=== PATIENT | male | born 1965 | race Caucasian/White ===

== ENCOUNTER 2020-06-12 10:00 | Outpatient (REF) | payer OTHER, SELFPAY ==
[2020-06-12 11:17] LABS: MANUAL DIFF FLAG NO
[2020-06-12 11:21] LABS: Basophils Absolute Auto 0.1 X10*3/uL (0.0-0.2); Eosinophils Absolute Auto 0.2 X10*3/uL (0.0-0.4); Eosinophils Percent Auto 4.6 % (0-4); Hematocrit 44.5 % (42-52); Hemoglobin 14.3 g/dl (14.0-18.0); Imm Gran Abs Auto 0.01 X10*3/uL (0.00-0.03); Imm Gran Pct Auto 0.2 % (0.0-0.4); Lymphocytes Absolute Auto 1.8 X10*3/uL (1.2-4.9); Lymphocytes Percent Auto 34.9 % (20-40); Mean Corpuscular HGB Conc 32.1 g/dl (31.0-36.0); Mean Corpuscular Volume 90.3 fL (80-98); Mean Platelet Volume 10.9 fL (9.4-12.4); Monocytes Absolute Auto 0.7 X10*3/uL (0.1-1.2); Monocytes Percent Auto 13.2 % (2-11); Neutrophils Absolute Auto 2.3 X10*3/uL (2.0-8.3); Neutrophils Percent Auto 46.1 % (45-73); Platelet Count 283 X10*3/uL (160-400); Red Blood Count 4.93 X10*6/uL (4.60-5.80); Red Cell Distribution Width 12.5 % (11.0-16.0)
[2020-06-12 11:41] LABS: Alanine Aminotransferase 13 U/L (0-40); Albumin Level 4.5 g/dL (3.5-5.0); Alkaline Phosphatase 77 U/L (39-117); Anion Gap 13 (12-20); Aspartate Amino Transferase 16 U/L (5-37); Bilirubin Total 0.6 mg/dL (0.0-1.0); Blood Urea Nitrogen 17 mg/dL (9-16); Calcium 9.4 mg/dL (8.4-10.2); Carbon Dioxide 29 mmol/L (22-29); Chloride 102 mmol/L (96-108); Cholesterol 218 mg/dL; Estimated Glomerular Filt Rate > 60; Glucose Fasting 89 mg/dL (60-99); HDL Cholesterol 36 mg/dL; LDL Cholesterol Calculated 165 mg/dl; Sodium 139 mmol/L (135-145); Total Protein 7.4 g/dL (6.5-8.0); Triglycerides 89 mg/dL
[2020-06-12 12:01] LABS: Prostate Specific Antigen 1.06 ng/mL (<0.05-4.0)
== END 2020-06-12 10:01 | disposition home or self-care (01) ==
LOC: HO.LAB 10:00
PROVIDERS: PCP Internal Medicine Medical Oncology; Visit Provider Internal Medicine Medical Oncology
DX: K21.9 Gastro-esophageal reflux disease without esophagitis (principal); N40.0 Benign prostatic hyperplasia without lower urinary tract symptoms; E78.5 Hyperlipidemia, unspecified; Z12.5 Encounter for screening for malignant neoplasm of prostate
CPT/HCPCS: 36415; 80053; 80061; 84153; 85025

== ENCOUNTER 2022-05-26 10:50 | Outpatient (REF) | payer OTHER, SELFPAY ==
[2022-05-26 11:07] LABS: MANUAL DIFF FLAG NO
[2022-05-26 11:55] LABS: Basophils Absolute Auto 0.1 X10*3/uL (0.0-0.2); Basophils Percent Auto 1.3 % (0-2); Eosinophils Absolute Auto 0.2 X10*3/uL (0.0-0.4); Hematocrit 44.8 % (42.0-52.0); Hemoglobin 14.7 g/dl (14.0-18.0); Imm Gran Abs Auto 0.02 X10*3/uL (0.00-0.03); Imm Gran Pct Auto 0.4 % (0.0-0.4); Lymphocytes Absolute Auto 1.7 X10*3/uL (1.2-4.9); Lymphocytes Percent Auto 31.8 % (20-40); Mean Corpuscular HGB Conc 32.8 g/dl (31.0-36.0); Mean Corpuscular Volume 88.4 fL (80.0-98.0); Mean Platelet Volume 10.6 fL (9.4-12.4); Monocytes Absolute Auto 0.6 X10*3/uL (0.1-1.2); Monocytes Percent Auto 11.5 % (2-11); Neutrophils Absolute Auto 2.7 x10*3/uL (2.0-8.3); Platelet Count 278 X10*3/uL (160-400); Red Blood Count 5.07 X10*6/uL (4.60-5.80); Red Cell Distribution Width 12.6 % (11.0-16.0); White Blood Count 5.2 X10*3/uL (4.8-10.8)
[2022-05-26 13:58] LABS: Alanine Aminotransferase 32 U/L (0-40); Albumin Level 4.3 g/dL (3.5-5.0); Alkaline Phosphatase 71 U/L (39-117); Anion Gap 13 (12-20); Aspartate Amino Transferase 20 U/L (5-37); Bilirubin Total 0.7 mg/dL (0.0-1.0); Blood Urea Nitrogen 14 mg/dL (9-16); Calcium 9.7 mg/dL (8.4-10.2); Carbon Dioxide 29 mmol/L (22-29); Chloride 104 mmol/L (96-108); Cholesterol 244 mg/dL; Estimated Glomerular Filt Rate > 60; Glucose Random 93 mg/dL (60-115); HDL Cholesterol 45 mg/dL; LDL Cholesterol Calculated 182 mg/dl; Potassium 4.9 mmol/L (3.3-5.1); Sodium 141 mmol/L (135-145); Total Protein 6.9 g/dL (6.5-8.0); Triglycerides 89 mg/dL
[2022-05-26 14:16] LABS: Prostate Specific Antigen 0.95 ng/mL (<0.05-4.0)
== END 2022-05-26 10:51 | disposition home or self-care (01) ==
LOC: HO.LAB 10:50
PROVIDERS: PCP Internal Medicine Medical Oncology; Visit Provider Internal Medicine Medical Oncology
DX: Z12.5 Encounter for screening for malignant neoplasm of prostate (principal); N40.0 Benign prostatic hyperplasia without lower urinary tract symptoms; K21.9 Gastro-esophageal reflux disease without esophagitis; E66.3 Overweight
CPT/HCPCS: 36415; 80053; 80061; 84153; 85025

== ENCOUNTER 2022-06-20 14:35 | Outpatient (REF) | payer OTHER, SELFPAY ==
--- NOTE | ~2022-06-20 | XR_ITS ---
EXAMINATION: XR AP BILATERAL KNEE XR RIGHT KNEE CLINICAL INDICATIONS: Pain, right knee. TECHNIQUE: AP bilateral knee 1 view standing. Right knee 2 views. COMPARISON: None available. FINDINGS: AP BILATERAL KNEE STANDING: There is mild loss of medial compartment joint space both knees. No bony erosive changes, loose bodies or fracture seen. RIGHT KNEE: The patellofemoral compartment joint space is normal. No abnormal joint effusion, loose bodies or bony erosive changes. No soft tissue calcification. XR/XR knee RT 2V IMPRESSION: 1. Mild loss of medial compartment joint space both knees. 2. The lateral and sunrise views right knee is unremarkable.
--- NOTE | ~2022-06-20 | XR_ITS ---
EXAMINATION: XR AP BILATERAL KNEE XR RIGHT KNEE CLINICAL INDICATIONS: Pain, right knee. TECHNIQUE: AP bilateral knee 1 view standing. Right knee 2 views. COMPARISON: None available. FINDINGS: AP BILATERAL KNEE STANDING: There is mild loss of medial compartment joint space both knees. No bony erosive changes, loose bodies or fracture seen. RIGHT KNEE: The patellofemoral compartment joint space is normal. No abnormal joint effusion, loose bodies or bony erosive changes. No soft tissue calcification. XR/XR knee standing BI IMPRESSION: 1. Mild loss of medial compartment joint space both knees. 2. The lateral and sunrise views right knee is unremarkable.
== END 2022-06-20 14:36 | disposition home or self-care (01) ==
LOC: HO.HOSX 14:35
PROVIDERS: PCP Internal Medicine Medical Oncology; Visit Provider Physician Assistant
DX: S83.001A Unspecified subluxation of right patella, initial encounter (principal); X58.XXXA Exposure to other specified factors, initial encounter; Y93.9 Activity, unspecified; Y92.9 Unspecified place or not applicable; Y99.9 Unspecified external cause status
CPT/HCPCS: 73560; 73565; 99202

== ENCOUNTER 2022-08-22 14:44 | Outpatient (AMB) | payer OTHER, SELFPAY ==
--- NOTE | 2022-08-22 14:50 | A.OFFVIS_ITS ---
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 He is referred by Gino Sanders MD. PMX History of substance abuse -HEROIN CURRENT USER Overweight History of diverticulitis GERD Fracture left ulna BPH Bilateral inguinal hernias Depression * SURGICAL HISTORY Left hand surgery - nerve repair s/p trauma Colonoscopy/EGD Left ulnar repair with bone graft Bilateral inguinal hernia apathy x2 * ALLERGIES: NKDA * [employer] LABS: Laboratory Tests 05/26/22 05/26/22 11:06 11:06 WBC 5.2 Hgb 14.7 Hct 44.8 Plt Count 278 Estimated GFR > 60 Total Bilirubin 0.7 AST 20 ALT 32 Alkaline Phosphata se 71 TODAY'S VISIT He had a prior scope in [address] [place] [address] because of TICS. His son had Crohns disease. No bowel or upper GI problems. There are no prior problems with anesthesia or sedation. He denies any cardiac or respiratory problems. No ID problems. No FHX crc or polyps. [facility] Medical History Bilateral inguinal hernia Fracture of left ulna History of diverticulitis Surgical History H/O bilateral inguinal hernia repair History of surgery on arm Social History Alcohol intake: never Patient Tobacco Use Status: Former Tobacco user Current occupational status: unemployed Review of Systems Const Denies fatigue, Denies fever(s), Denies night sweats, Denies poor appetite and Denies weight loss ENT Reports Normal hearing present, Denies dental pain, Denies dysphagia, Denies hearing loss, Denies mouth pain, Denies odynophagia, Denies throat swelling, Denies tongue swelling and Reports other (Dentition adequate) Card Reports no additional complaints Resp Reports no additional complaints GI Denies abdominal pain, Denies melena, Denies bloating, Denies hematochezia, Denies constipation, Denies GI cramping, Denies dysphagia, Denies excessive flatus, Denies early satiety, Reports heartburn, Denies diarrhea, Denies nausea, Denies odynophagia, Denies vomiting and Denies hematemesis Skin/Breast Denies pruritus, Denies lesions, Denies rash and Denies jaundice Neuro Reports Normal hearing present and Denies Abnormal speech present Endo Denies fatigue Aller/Immun Denies throat swelling and Denies tongue swelling Physical Exam Vital Signs: Last Vital Signs Pulse 68 08/22/22 14:58 BP 123/76 08/22/22 14:58 BMI result Body Mass Index 27.2 Const General: cooperative, no acute distress, well developed and well groomed Nutritional Appearance: average body habitus and well nourished Orientation/consciousness: oriented to person, oriented to place and oriented to time Limitations: No language barrier HEENT Head: Yes normocephalic and Yes atraumatic Eyes General: appearance normal, both eyes and all related structures Pupils: Equal, round and reactive pupils present Neck Neck: Yes normal visual inspection and Yes no lymphadenopathy Thyroid: Thyroid normal Resp Effort & Inspection: normal respiratory effort and able to speak in complete sentences Auscultation: clear to auscultation bilaterally Cardio Rate: regular rate Rhythm: regular rhythm Heart sounds: Normal, physiologic split S2 sound present Peripheral pulses: radial pulses present and posterior tibial pulses present GI Inspection: No distended and No Abdominal panniculus present Palpation (GI): Soft to palpation, nontender, no guarding, not rigid and No hepatosplenomegaly present Percussion: Yes normal to percussion Auscultation: normal bowel sounds Rectal Exam - Male: Yes deferred Skin Other: multiple tattoos neck General skin exam: no rashes or lesions noted, turgor normal, skin not dry, no jaundice, No spider nevi and no striae Rashes: no rashes Nails: normal Neuro General: oriented to person, oriented to place and oriented to time Cranial nerves: Yes Equal, round and reactive pupils present and Yes Normal hearing present Speech: No Abnormal speech present Extrem General: Yes normal to inspection, No clubbing, No cyanosis and No edema Psych Appearance: grossly normal and well kempt Mental Status: mental status grossly normal Speech and movement: Normal speech and movement present Affect: normal affect Attitude: cooperative Thought process: Normal thought process present and not confabulating Thought content: Normal thought content present Insight: Limited insight present (Psych) Judgement: Limited judgement present (Psych) Assessment & Plan Assessment & Plan (1) Pre-op examination: Code(s): Z01.818 - Encounter for other preprocedural examination Plan: He had a prior scope in [address] [place] [address] because of TICS. His son had Crohns disease. No bowel or upper GI problems. There are no prior problems with anesthesia or sedation. He denies any cardiac or respiratory problems. No ID problems. No FHX crc or polyps. (2) Heroin abuse: Code(s): F11.10 - Opioid abuse, uncomplicated Orders: Orders Colonoscopy - GI Use Only 08/22/22 Medications: New peg 3350-electrolytes 236-22.74-6.74 -5.86 gram (Golytely) until fecal effluent is clear; do not exceed a total volume of 2,000 mL 240 mL PO Q10M 4,000 mL 0RF 1 day Z12.11 - Encounter for screening for malignant neoplasm of colon Coding Level of Care Code New Pt Level 3 (35978) Diagnoses Pre-op examination Z01.818 Heroin abuse F11.10
[2022-08-22 14:58] VITALS: BP 123/76; PULSE 68; BMI 27.2
== END 2022-08-22 16:14 | disposition home or self-care (01) ==
PROVIDERS: PCP Internal Medicine Medical Oncology; Visit Provider Nurse Practitioner
DX: Z01.818 Encounter for other preprocedural examination (principal); Z12.11 Encounter for screening for malignant neoplasm of colon; F11.10 Opioid abuse, uncomplicated
CPT/HCPCS: 99203

== ENCOUNTER → 2022-08-22 14:44 | Outpatient (BNVA) | payer OTHER, SELFPAY | PROVIDERS: PCP Internal Medicine Medical Oncology; Visit Provider Nurse Practitioner | DX: Z01.818 Encounter for other preprocedural examination (principal); F11.10 Opioid abuse, uncomplicated | CPT/HCPCS: 99202 ==

== ENCOUNTER 2022-09-13 15:42 | Emergency (ER) | payer OTHER, SELFPAY ==
--- NOTE | ~2022-09-13 | CT_ITS ---
EXAMINATION: CT ABDOMEN AND PELVIS WITH CONTRAST CLINICAL INFORMATION: Left lower quadrant pain. COMPARISON: None available. TECHNIQUE: Multidetector volumetric images were obtained from the superior aspect of the liver through the pubic symphysis following administration 85 mL of Omnipaque 350 intravenous contrast. Sagittal and coronal reformatted images were obtained on the technologist's workstation. Oral contrast: No This CT examination was performed using dose optimization techniques as appropriate, variously including the following: *Automated exposure control *Adjustment of mA and/or kV according to patient size (this includes techniques or standardized protocols for targeted exams where dose is matched to indication/reason for exam; i.e. extremities or head) *Use of iterative reconstruction technique DLP: 670 mGy-cm FINDINGS: LUNG BASES: A few sub-3 mm solid pulmonary nodules are seen, for instance in the left lower lobe image 84 and right lower lobe image 30 series 4. No focal consolidation or pleural effusion. Partially imaged coronary artery calcifications. LIVER, GALLBLADDER, AND BILIARY TREE: The liver is normal in size, shape and attenuation. Too small to characterize hypodensities, for instance in the right hepatic lobe axial image 21 series 3, are statistically imaging favored to represent a simple cysts. No calcified cholelithiasis. No pericholecystic fat stranding/free fluid to suspected acute cholecystitis. No biliary ductal dilatation. PANCREAS: Mild fatty haziness at the root of the small bowel mesentery. Otherwise, no significant peripancreatic fat stranding/free fluid. No main ductal dilatation. SPLEEN: Unremarkable. ADRENAL GLANDS: Unremarkable. KIDNEYS AND URETERS: Nonobstructive punctate left-sided renal calculi. Symmetric nephrograms. No hydronephrosis. No significant perinephric fat stranding. Multiple simple fluid attenuating left-sided parapelvic and cortical cysts with a few additional too small to characterize left-sided cortical hypodensities that statistically are also likely to represent simple cysts and for which no imaging follow-up is recommended. Homogeneously hyperintense attenuating exophytic observation along the posterior left kidney measuring 1.7 cm, 60 Hounsfield units, favoring to represent a proteinaceous/hemorrhagic cyst sagittal image 30 series 7, for which no imaging follow-up is recommended. BLADDER: Diffuse urinary bladder wall thickening. No calcified intraluminal calculi. No significant perivesical fat stranding. GASTROINTESTINAL TRACT: The stomach and the small bowel are nondilated. The appendix is slightly prominent measuring up to 0.9 cm in diameter with minimal periappendiceal fat stranding, for instance axial images 61 and 59 series 3. Moderate volume of stool content throughout the colon and rectum. No significant pericolonic fat stranding/free fluid. No evidence of bowel obstruction. ABDOMINAL WALL: Postsurgical changes from prior right inguinal hernia repair with a small recurrent fat-containing hernia. Additional small fat-containing umbilical and left-sided inguinal hernias. LYMPH NODES: Scattered prominent but not pathologically enlarged mesenteric lymph nodes. Nonspecific periportal lymphadenopathy. VASCULAR: Normal caliber abdominal aorta. PELVIC VISCERA: Enlarged prostate with coarse calcifications. OSSEOUS STRUCTURES: No acute or aggressive appearing osseous findings. Degenerative changes of the spine. Subchondral degenerative cysts in the right acetabulum. CT/CT abdomen pelvis w IV con IMPRESSION: 1. The appendix is slightly prominent with minimal periappendiceal fat stranding. Correlate clinically for acute appendicitis. 2. Moderate volume of stool content throughout the colon and rectum suggesting constipation. 3. Mild fatty haziness at the root of the small bowel mesentery with prominent but not pathologically enlarged mesenteric lymph nodes. These findings are nonspecific and could be associated with mesenteric panniculitis, gastroenteritis or less likely pancreatitis. Correlation with lipase/amylase levels as clinically indicated. 4. Diffuse urinary bladder wall thickening, correlate clinically for cystitis. 5. Nonspecific periportal lymphadenopathy, attention on follow-up in future examinations recommended. 6. Nonobstructive left-sided renal calculi. 7. Sub-3 mm solid pulmonary nodules in the lung bases. Assuming patient has no history of malignancy, recommend follow-up per Fleischner Society recommendations. According to the UPDATED 2017 Fleischner Society recommendations, the advised followup imaging for solid nodules < 6 mm is: LOW RISK PATIENT: No routine follow up. HIGH RISK PATIENT: Optional CT at 12 months. Fleischner guidelines were followed.
[2022-09-13 16:48] VITALS: BP 143/101; PULSE 69; RESP 18; TEMP 36.2; O2SAT 97; BMI 28.4
--- NOTE | 2022-09-13 16:48 | ED.GENADULT ---
HPI - General Adult General Chief complaint: Abdominal Pain Stated complaint: diverticulitis Time Seen by Provider: 09/13/22 21:00 Source: patient Mode of arrival: ambulatory Limitations: no limitations History of Present Illness HPI narrative: Patient comes to the emergency room complaining of left lower quadrant pain. Patient states that for about a week he has been treated with Levaquin and Flagyl by his PCP for diverticulitis which patient has had in the past. Patient states that he is not feeling any better. Patient denies diarrhea or vomiting. Related Data Home Medications Medication Instructions Recorded Confirmed clonidine HCl 0.2 mg tablet 0.2 mg PO BID 08/22/22 omeprazole 20 mg capsule,delayed 20 mg PO DAILY 08/22/22 release Previous Rx's Medication Instructions Recorded peg 3350-electrolytes 236 240 ml PO Q10M 1 day #4,000 mL 08/22/22 gram-22.74 gram-6.74 gram-5.86 gram solution (Golytely) levofloxacin 500 mg tablet 500 mg PO DAILY #7 tabs 09/13/22 metronidazole 500 mg tablet 500 mg PO BID #14 tabs 09/13/22 polyethylene glycol 3350 17 17 g PO DAILY PRN laxative effect 09/13/22 gram/dose oral powder (Miralax) #119 grams tramadol 50 mg tablet 50 mg PO BID PRN pain #7 tabs 09/13/22 Allergies Allergy/AdvReac Type Severity Reaction Status Date / Time No Known Allergies Allergy Verified 08/22/22 14:59 Review of Systems Review of Systems: Constitutional : No Weight loss, No Fever, No Chills, No Night Sweats, No Fatigue, No Malaise ENT/Mouth : No Hearing loss, No Ear Pain, No Nasal Congestion, No Sinus Pain, No Hoarseness, No sore throat, No Rhinorrhea, No Swallowing Difficulty Eyes: No Eye Pain, No Swelling, No Redness, No Foreign Body, No Discharge, No Vision Changes Cardiovascular : No Chest Pain, No SOB, No Dyspnea on Exertion, No Orthopnea, No Edema, No Palpitations Respiratory : No Cough, No Sputum, No Wheezing, No Smoke Exposure, No Dyspnea Gastrointestinal : No Nausea, No Vomiting, No Diarrhea, No Constipation, complaining of left lower quadrant pain Genitourinary : no irregular bleeding, No Dysuria, No Urinary Frequency, No Hematuria, No Urinary Incontinence, No Urgency, No Flank Pain, No Urinary Flow Changes, No Hesitancy Musculoskeletal : No joint pain, No Myalgias, No Joint Swelling Skin : No Skin Lesions, No rash Neuro : No Weakness, No Numbness, No Paresthesias, No Loss of Consciousness, No Dizziness, No Headache Psych : No Anxiety/Panic, No Depression, No SI/HI/AH/VH, No Social Issues, Heme/Lymph: No Bruising, No Bleeding,No Lymphadenopathy Endocrine : No Polyuria, No Polydipsia, No Temperature Intolerance [facility] Past Medical History Medical History Bilateral inguinal hernia Fracture of left ulna History of diverticulitis Surgical History H/O bilateral inguinal hernia repair History of surgery on arm Social History Social History Alcohol intake: never Patient Tobacco Use Status: Former Tobacco user Smoked in Last 30 Days: No Advance Directives: No Advance Directives Information Provided: Yes Current occupational status: unemployed Physical Exam ED Vital Signs: Vital Signs - 24 hr 09/13/22 16:48 09/13/22 21:31 09/13/22 23:16 Temperature 97.1 F 98.1 F 98.8 F Pulse Rate 69 68 68 Respiratory Rate 18 18 18 Blood Pressure 143/101 H 153/99 H 140/87 H Pulse Oximetry 97 97 99 Oxygen Delivery Method Room Air Room Air Room Air BMI result Body Mass Index 28.4 Const Other: Appearance: Alert. Oriented X3. No acute distress. Eyes: Pupils equal, round and reactive to light. ENT: Pharynx normal. Neck: Normal inspection. Neck supple. No lymph nodes noted. No crepitus CVS: Normal heart rate and rhythm. Pulses normal. Normal S1 and S2 Respiratory: No respiratory distress. Breath sounds normal. No Wheezing. No rales Abdomen: Soft mild discomfort in the left lower quadrant, no significant pain, no rigidity, no rebound or guarding, no distention. Skin: Skin warm and dry. Normal skin color. Normal skin turgor. Extremities: No lower extremity edema. No Lacerations. No Rash Neuro: Oriented X 3. No motor deficit. No sensory deficit. Moving all extremities. No slurred speech. CN 2 through 12 grossly intact Psych: calm, cooperative, normal affect Course Course Course Narrative: This is an RME: Additional HPI, ROS, PE not included below will be deferred to primary provider. This is a [id number], with a history of diverticulitis, GERD, CPH, inguinal hernias, presenting to the emergency department with complaints of LLQ pain x 1 week. He was seen by his GI specialist and was prescribed flagyl and ciprofloxacin last week, last dose tomorrow but symptoms have not improved. No diarrhea, but has had increase in bowel movements. Reporting black stool. Plan: Labs, Medications Administered Discontinued Medications Generic Name Dose Route Start Last Admin Trade Name Freq PRN Reason Stop Dose Admin Iohexol 100 ml 09/13/22 20:47 09/13/22 20:48 Iohexol 350 Mg/Ml 100 Ml Infus..Btl IV 09/13/22 20:48 85 ml ONCE ONE Administration Tramadol HCl 50 mg 09/13/22 21:08 09/13/22 21:38 Tramadol Hcl 50 Mg Tablet PO 09/13/22 21:09 50 mg ONCE ONE Administration Medical Decision Making Medical Decision Making [facility] Narrative: -patient is still symptomatic despite 1 week of antibiotics, admission considered -white blood cell count slightly decreased from baseline, 4.3, AST ALT very mildly elevated, otherwise labs are unremarkable. -CT scan of the abdomen/pelvis pending -patient requested tramadol, patient states that he does not want anything stronger than that -my interpretation of CT scan: No small-bowel obstructions, no free air, no visualized abscesses -I discussed with the patient about him incidental pulmonary nodules that were seen on CT scan. Patient states that his primary care physician is also an oncologist and will discuss this. Patient states that he used to chew tobacco. Possible the patient may need a CT scan, patient will discuss this further with his PCP -report of CT scan shows possible appendicitis it is prominent. Patient does not have any right lower quadrant pain or periumbilical pain. Patient's lipase is negative, patient does not have epigastric pain. -the patient will likely need an extended course of antibiotics for diverticulitis. Differential Diagnosis Differential Diagnoses: The differential diagnosis associated with the presentation includes (Diverticulitis, abscess, bowel perforation) Admission/Observation Consideration of admission/observation: Escalation of care including admission/observation considered Lab Data [facility] Lab Attestation statement: I reviewed the patient's lab results. 09/13/22 17:08 09/13/22 17:08 Labs: Lab Results 09/13/22 09/13/22 09/13/22 Range/Units 17:08 17:08 17:08 WBC 4.3 L (4.8-10.8) X10*3/uL RBC 4.50 L (4.60-5.80) X10*6/uL Hgb 13.1 L (14.0-18.0) g/dl Hct 39.3 L (42.0-52.0) % MCV 87.3 (80.0-98.0) fL MCH 29.1 (27.0-33.0) pg MCHC 33.3 (31.0-36.0) g/dl RDW 12.4 (11.0-16.0) % Plt Count 179 D (160-400) X10*3/uL MPV 10.3 (9.4-12.4) fL Immature Gran % (Auto) 0.2 (0.0-0.4) % Neut % (Auto) 67.7 (45-73) % Lymph % (Auto) 14.4 L (20-40) % Early % (Auto) 14.1 H (2-11) % Eos % (Auto) 3.1 (0-4) % Baso % (Auto) 0.5 (0-2) % Lymph # (Auto) 0.6 L (1.2-4.9) X10*3/uL Early # (Auto) 0.6 (0.1-1.2) X10*3/uL Eos # (Auto) 0.1 (0.0-0.4) X10*3/uL Baso # (Auto) 0.0 (0.0-0.2) X10*3/uL Abs Immat Gran (auto) 0.01 (0.00-0.03) X10*3/uL Absolute Neuts (auto) 2.9 (2.0-8.3) x10*3/uL Absolute Nucleated RBC 0.000 (0.0-0.012) X10*3/uL Nucleated RBC % (auto) 0.0 (0.0-0.2) /100WBC Sodium 142 (135-145) mmol/L Potassium 3.8 D (3.3-5.1) mmol/L Chloride 109 H (96-108) mmol/L Carbon Dioxide 23 (22-29) mmol/L Anion Gap 14 (12-20) BUN 19 H (9-16) mg/dL Creatinine 0.96 (0.5-1.4) mg/dL Estim Creat Clear Calc 104.5 Estimated GFR > 60 Random Glucose 102 (60-115) mg/dL Calcium 9.3 (8.4-10.2) mg/dL Total Bilirubin 0.4 (0.0-1.0) mg/dL Direct Bilirubin 0.1 (0.0-0.5) mg/dL AST 71 H (5-37) U/L ALT 95 H (0-40) U/L Alkaline Phosphatase 54 (39-117) U/L Total Protein 6.8 (6.5-8.0) g/dL Albumin 4.1 (3.5-5.0) g/dL Lipase 15 (8-78) U/L Urine Color Yellow Urine Appearance Clear Urine pH 5.5 (5.0-9.0) Ur Specific [place] >= 1.030 H (1.005-1.025) Urine Protein Negative (Neg-Trace) mg/dL Urine Glucose (UA) Negative (Negative) mg/dL Urine Ketones Negative (Negative) mg/dL Urine Blood Negative (Negative) Urine Nitrite Negative (Negative) Ur Leukocyte Esterase Negative (Negative) Independent Interpretation I performed an independent interpretation of an: CT Scan Radiology Impression Discussion of test interpretation with radiology: I have reviewed the radiologist's reading. Radiologist Impression: FINDINGS: LUNG BASES: A few sub-3 mm solid pulmonary nodules are seen, for instance in the left lower lobe image 84 and right lower lobe image 30 series 4. No focal consolidation or pleural effusion. Partially imaged coronary artery calcifications.? LIVER, GALLBLADDER, AND BILIARY TREE: The liver is normal in size, shape and attenuation. Too small to characterize hypodensities, for instance in the right hepatic lobe axial image 21 series 3, are statistically imaging favored to represent a simple cysts. No calcified cholelithiasis. No pericholecystic fat stranding/free fluid to suspected acute cholecystitis. No biliary ductal dilatation. PANCREAS: Mild fatty haziness at the root of the small bowel mesentery. Otherwise, no significant peripancreatic fat stranding/free fluid. No main ductal dilatation.? SPLEEN: Unremarkable.? ADRENAL GLANDS: Unremarkable.? KIDNEYS AND URETERS: Nonobstructive punctate left-sided renal calculi. Symmetric nephrograms. No hydronephrosis. No significant perinephric fat stranding. Multiple simple fluid attenuating left-sided parapelvic and cortical cysts with a few additional too small to characterize left-sided cortical hypodensities that statistically are also likely to represent simple cysts and for which no imaging follow-up is recommended. Homogeneously hyperintense attenuating exophytic observation along the posterior left kidney measuring 1.7 cm, 60 Hounsfield units, favoring to represent a proteinaceous/hemorrhagic cyst sagittal image 30 series 7, for which no imaging follow-up is recommended.? BLADDER: Diffuse urinary bladder wall thickening. No calcified intraluminal calculi. No significant perivesical fat stranding.? GASTROINTESTINAL TRACT: The stomach and the small bowel are nondilated. The appendix is slightly prominent measuring up to 0.9 cm in diameter with minimal periappendiceal fat stranding, for instance axial images 61 and 59 series 3. Moderate volume of stool content throughout the colon and rectum. No significant pericolonic fat stranding/free fluid. No evidence of bowel obstruction.? ABDOMINAL WALL: Postsurgical changes from prior right inguinal hernia repair with a small recurrent fat-containing hernia. Additional small fat-containing umbilical and left-sided inguinal hernias.? LYMPH NODES: Scattered prominent but not pathologically enlarged mesenteric lymph nodes. Nonspecific periportal lymphadenopathy. VASCULAR: Normal caliber abdominal aorta. PELVIC VISCERA: Enlarged prostate with coarse calcifications.? OSSEOUS STRUCTURES: No acute or aggressive appearing osseous findings. Degenerative changes of the spine. Subchondral degenerative cysts in the right acetabulum.? CT/CT abdomen pelvis w IV con IMPRESSION: 1.? The appendix is slightly prominent with minimal periappendiceal fat stranding. Correlate clinically for acute appendicitis. 2.? Moderate volume of stool content throughout the colon and rectum suggesting constipation. 3.? Mild fatty haziness at the root of the small bowel mesentery with prominent but not pathologically enlarged mesenteric lymph nodes. These findings are nonspecific and could be associated with mesenteric panniculitis, gastroenteritis or less likely pancreatitis. Correlation with lipase/amylase levels as clinically indicated. 4.? Diffuse urinary bladder wall thickening, correlate clinically for cystitis. 5.? Nonspecific periportal lymphadenopathy, attention on follow-up in future examinations recommended. 6.? Nonobstructive left-sided renal calculi. 7.? Sub-3 mm solid pulmonary nodules in the lung bases. Assuming patient has no history of malignancy, recommend follow-up per Fleischner Society recommendations. According to the UPDATED 2017 Fleischner Society recommendations, the advised followup imaging for solid nodules < 6 mm is: LOW RISK PATIENT: No routine follow up. HIGH RISK PATIENT: Optional CT at 12 months. ? Fleischner guidelines were followed. External Record Review External record reviewed: Outpatient record (Patient has already established care with Gastroenterology for colonoscopy) Critical Care Time Critical Care Time Critical Care Time: Yes Total Critical Care Time: 45 Attestation: I have personally provided critical care time. Time includes review of lab data, radiology results, discussion with consultants, and monitoring for potential decompensation. Intervention performed as documented. Discharge Plan Discharge Clinical Impression: Diverticulitis Patient Disposition: Home, Self-Care Instructions: Diverticulitis (ED) Additional Instructions: Please follow-up with your primary care physician tomorrow. Please make sure that you discuss with your PCP the incidental lung nodules that were seen on your CT scan. If you have any worsening or new symptoms, please return to the emergency room or call 911 Prescriptions: New levofloxacin 500 mg tablet 500 mg PO DAILY Qty: 7 0RF metronidazole 500 mg tablet 500 mg PO BID Qty: 14 0RF tramadol 50 mg tablet 50 mg PO BID PRN (Reason: pain) Qty: 7 0RF polyethylene glycol 3350 [Miralax] 17 gram/dose powder 17 g PO DAILY PRN (Reason: laxative effect) Qty: 119 0RF No Action peg 3350-electrolytes [Golytely] 236-22.74-6.74 -5.86 gram recon soln 240 ml PO Q10M 1 Days Qty: 4000 0RF Rx Instructions: until fecal effluent is clear; do not exceed a total volume of 2,000 mL omeprazole 20 mg capsule,delayed release(DR/EC) 20 mg PO DAILY clonidine HCl 0.2 mg tablet 0.2 mg PO BID
[2022-09-13 17:15] LABS: MANUAL DIFF FLAG NO
--- OUTSIDE RECORDS SUMMARY | 2022-09-13 17:16 | XMS_ITS ---
Author Name Gino Sanders Address [address] [address] Organization Gino Sanders III, MD Address [address] [place] [address] Care Team Providers Care Lot Boss Name Role Phone Gino Sanders [facility] [phone] PROBLEMS Type Condition ICD9-CM Code ZCQ23-KZ Code Onset Dates Condition Status SNOMED Code Problem Bilateral inguinal hernia without obstruction or gangrene, recurrence not specified K40.20 Active 62254933 Problem Overweight E66.3 Active 914072052 Problem Substance abuse F19.10 Active 94592755 Problem Weight loss R63.4 Active 88360169 Problem Other closed fracture of distal end of left ulna, sequela S52.692S Active 81596214 Problem Gastroesophageal reflux disease without esophagitis K21.9 Active 32359398 5 Problem Benign prostatic hyperplasia, unspecified whether lower urinary tract symptoms present N40.0 Active 886779298 Problem Reactive depression F32.9 Active 8741 4006 ALLERGIES No Known Allergies ENCOUNTERS Encounter Location Date Diagnosis Gino Sanders III, MD [address] [place] [address] [place] [address] Aug, Gino Sanders III, MD [address] [place] [address] [place] [address] Aug, Gino Sanders III, MD [address] [place] [address] [place] [address] Aug, Benign prostatic hyperplasia , unspecified whether lower urinary tract symptoms present N40.0 ; Gastroesophageal reflux disease without esophagitis K21.9 ; Other closed fracture of distal end of left ulna, sequela S52.692S ; Overweight E66.3 ; Bilateral inguinal hernia without obstruction or gangrene, recurrence not specified K40.20 ; Substance abuse F19.10 and Reactive depression F32.9 Gino Sanders III, MD [address] [place] [address] [place] [address] Aug, Gino Sanders III, MD [address] [place] [address] Aug, Gino Sanders III, MD [address] [place] [address] [place] [address] Jul, Gino Sanders III, MD [address] [place] [address] [place] [address] Jul, Gino Sanders III, MD [address] [place] [address] [place] [address] June, Annual physical exam Z00.00 ; Benign prostatic hyperplasia, unspecified whether lower urinary tract symptoms present N40.0 ; Gastroesophageal reflux disease without esophagitis K21.9 ; Overweight E66.3 ; Substance abuse F19.10 and Reactive depression F32.9 Gino Sanders III, MD [address] [place] [address] [place] [address] May, Benign prostatic hyperplasia , unspecified whether lower urinary tract symptoms present N40.0 ; Overweight E66.3 ; Bilateral inguinal hernia without obstruction or gangrene, recurrence not specified K40.20 ; Gastroesophageal reflux disease without esophagitis K21.9 ; Reactive depression F32.9 and Substance abuse F19.10 Gino Sanders III, MD [address] [place] [address] [place] [address] Mar, Gino Sanders III, MD [address] [place] [address] [place] [address] Feb, Benign prostatic hyperplasia , unspecified whether lower urinary tract symptoms present N40.0 ; Gastroesophageal reflux disease without esophagitis K21.9 ; Overweight E66.3 ; Bilateral inguinal hernia without obstruction or gangrene, recurrence not specified K40.20 ; Substance abuse F19.10 ; Reactive depression F32.9 and Weight loss R63.4 Gino Sanders III, MD [address] [place] [address] [place] [address] Jan, Gino Sanders III, MD [address] [place] [address] [place] [address] Jan, Gino Sanders III, MD [address] [place] [address] [place] [address] Sep, Benign prostatic hyperplasia with lower urinary tract symptoms N40.1 ; Reactive depression F32.9 ; Substance abuse F19.10 ; Overweight E66.3 ; Gastroesophageal reflux disease without esophagitis K21.9 and Weight loss R63.4 Gino Sanders III, MD [address] [place] [address] [place] [address] Jul, Benign prostatic hyperplasia , unspecified whether lower urinary tract symptoms present N40.0 ; Gastroesophageal reflux disease without esophagitis K21.9 ; Overweight E66.3 ; Substance abuse F19.10 ; Reactive depression F32.9 and Bilateral inguinal hernia without obstruction or gangrene, recurrence not specified K40.20 Gino Sanders III, MD [address] [place] [address] [place] [address] Jul, Annual physical exam Z00.00 ; Reactive depression F32.9 ; Benign prostatic hyperplasia, unspecified whether lower urinary tract symptoms present N40.0 ; Gastroesophageal reflux disease without esophagitis K21.9 ; Other closed fracture of distal end of left ulna, sequela S52.692S ; Benign prostatic hyperplasia with lower urinary tract symptoms N40.1 and Substance abuse F19.10 Gino Sanders III, MD [address] [place] [address] [place] [address] 17 Jun, 2021 Annual physical exam Z00.00 ; Overweight E66.3 ; Benign prostatic hyperplasia with lower urinary tract symptoms N40.1 ; Gastroesophageal reflux disease without esophagitis K21.9 ; Benign prostatic hyperplasia, unspecified whether lower urinary tract symptoms present N40.0 ; Substance abuse F19.10 and Reactive depression F32.9 Gino Sanders III, MD [address] [place] [address] [place] [address] June, Benign prostatic hyperplasia , unspecified whether lower urinary tract symptoms present N40.0 ; Overweight E66.3 ; Bilateral inguinal hernia without obstruction or gangrene, recurrence not specified K40.20 ; Other closed fracture of distal end of left ulna, sequela S52.692S and Gastroesophageal reflux disease without esophagitis K21.9 Gino Sanders III, MD [address] [place] [address] [place] [address] 08 May, 2020 Gino Sanders III, MD [address] [place] [address] [place] [address] 30 Apr, 2020 Gastroesophageal reflux disease, unspecified whether esophagitis present K21.9 ; Benign prostatic hyperplasia, unspecified whether lower urinary tract symptoms present N40.0 ; Hyperlipidemia, unspecified hyperlipidemia type E78.5 ; Other closed fracture of distal end of left ulna, sequela S52.692S ; Overweight E66.3 and Bilateral inguinal hernia without obstruction or gangrene, recurrence not specified K40.20 Gino Sanders III, MD [address] [place] [address] [place] [address] 24 Mar, 2020 Gino Sanders III, MD [address] [place] [address] [place] [address] Feb, IMMUNIZATIONS Vaccine Route Administration Date Status Influenza no Preserv 3 and > Unknown Apr 07, 2014 Administered Influenza, quad Unknown Nov 25, 2019 Administered Influenza, quad Unknown Nov 30, 2020 Administered COVID- 19 Vaccine Unknown Jan 05, 2021 Administer ed COVID PFIZER Unknown July 05, 2020 Administered COVID PFIZER Unknown June 14, 2020 Administered SOCIAL HISTORY Qualifiers Date Never Smoker REASON FOR REFERRAL FUNCTIONAL STATUS PLAN OF CARE Activity Details VITAL SIGNS Height 71 in 2022-08-28 Height 71 in 2022-07-03 Height 71 in 2022-06-06 Height 71 in 2022-03-07 Height 71 in 2021-09-20 Height 71 in 2021-07-19 Height 71 in 2021-06-28 Height 71 in 2020-05-11 Weight 208 lbs 2022-08-28 Weight 203 lbs 2022-07-03 Weight 203 lbs 2022-06-06 Weight 188 lbs 2022-03-07 Weight 162 lbs 2021-09-20 Weight 177 lbs 2021-07-19 Weight 178 lbs 2021-06-28 Weight 209 lbs 2020-05-11 BMI 29.01 kg/m2 2022-08-28 BMI 28.31 kg/m2 2022-07-03 BMI 28.31 kg/m2 2022-06-06 BMI 26.22 kg/m2 2022-03-07 BMI 22.59 kg/m2 2021-09-20 BMI 24.68 kg/m2 2021-07-19 BMI 24.82 kg/m2 2021-06-28 BMI 29.15 kg/m2 2020-05-11 Heart Rate 80 /min 2022-08-28 Heart Rate 72 /min 2022-07-03 Heart Rate 71 /min 2022-06-06 Heart Rate 90 /min 2022-03-07 Heart Rate 82 /min 2021-09-20 Heart Rate 64 /min 2021-07-19 Heart Rate 72 /min 2021-06-28 Heart Rate 70 /min 2020-05-11 Temperature 97.5 degrees Fahrenheit Temperature 97.6 degrees Fahrenheit Temperature 97.2 degrees Fahrenheit Temperature 96.7 degrees Fahrenheit Temperature 97.1 degrees Fahrenheit Temperature 97.0 degrees Fahrenheit Temperature 97.1 degrees Fahrenheit Blood pressure systolic 120 mm Hg Blood pressure diastolic 78 mm Hg 2022-08 MEDICATIONS Medication Instructions Dosage Frequency Start Date End Date Duration Status Nicotine 21 MG/24HR Transdermal Once a day 1 patch to skin 24h 20 Jul, 2022 Active cloNIDine HCl 0.2 MG TAKE 1 TABLET BY MOUTH TWICE A DAY FOR 30 DAYS Active Nicotine Step 3 7 MG/24HR Transdermal Once a day 1 patch to skin 24h Aug, Active Ciprofloxacin HCl 500 MG Orally every 12 hrs 1 tablet 12h Aug, 2 Sep, 2022 7 days Active metroNIDAZOLE 500 MG Orally Three times a day 1 tablet 8h Aug, 2 Sep, 2022 7 days Active Nicotine Step 2 14 MG/24HR Transdermal Once a day 1 patch to skin 24h Aug, Active Omeprazole 20 MG TAKE 1 CAPSULE BY MOUTH EVERY DAY FOR 30 DAYS Active PROCEDURES Procedure Date Ordered Result Body Site URINE-NO MICRO July 03, 2022 URINE-NO MICRO June 28, 2021 PHONE E/M BY PHYS 11-20 MIN June 15, 2020 RESULTS Name Result Date Reference Range URINE DIP STICK 2022-07-03 SG 1.030 1.005 - 1.025 pH 5.0 5.0 - 9.0 MARCIAL Neg Negative - NIT Neg Negative - PRO 15 Negative - Trac e GLU Neg Negative - KET Neg Negative - UBG 0.2 0.1 - 1.8 WILLIAM Neg 0.2 - 1.3 BLD Neg Negative - Menstrating N/A Complete Blood Count Auto Diff 2022-05-26 White Blood Count 5.2 4.8-10.8 Red Blood Count 5.07 4.60-5.80 Hemoglobin 14.7 14.0-18.0 Hematocrit 44.8 42.0-52.0 Mean Corpuscular Volume 88.4 80.0 -98.0 Mean Corpuscular Hemoglobin 29.0 27.0-33.0 Mean Corpuscular HGB Conc 32.8 31 .0-36.0 Red Cell Distribution Width 12.6 11.0-16.0 Platelet Count 278 160-400 Mean Platelet Volume 10.6 9.4-12. 4 Neutrophils Percent Auto 51.0 45- 73 Imm Gran Pct Auto 0.4 0.0-0.4 Lymphocytes Percent Auto 31.8 20- 40 Monocytes Percent Auto 11.5 2-11 Eosinophils Percent Auto 4.0 0-4 Basophils Percent Auto 1.3 0-2 NRBC Pct Auto 0.0 0.0-0.2 Neutrophils Absolute Auto 2.7 2. 0-8.3 Imm Gran Abs Auto 0.02 0.00-0.03 Lymphocytes Absolute Auto 1.7 1. 2-4.9 Monocytes Absolute Auto 0.6 0.1- 1.2 Eosinophils Absolute Auto 0.2 0. 0-0.4 Basophils Absolute Auto 0.1 0.0- 0.2 NRBC Abs Auto 0.000 0.0-0.012 Comprehensive Met. Panel 2022-05-26 Sodium 141 135-145 Potassium 4.9 3.3-5.1 Chloride 104 96-108 Carbon Dioxide 29 22-29 Anion Gap 13 12-20 Blood Urea Nitrogen 14 9-16 Creatinine 1.06 0.5-1.4 Estimated Glomerular Filt Rate >60 Glucose Random 93 60-115 Calcium 9.7 8.4-10.2 Bilirubin Total 0.7 0.0-1.0 Aspartate Amino Transferase 20 5-37 Alanine Aminotransferase 32 0-4 0 Total Protein 6.9 6.5-8.0 Albumin Level 4.3 3.5-5.0 Alkaline Phosphatase 71 39-117 Lipid Panel 2022-05-26 Triglycerides 89 Cholesterol 244 LDL Cholesterol Calculated 182 HDL Cholesterol 45 Prostate Specific Antigen 2022-05-26 Prostate Specific Antigen 0.95 <0 .05-4.0 URINE DIP STICK 2021-06-28 SG 1.025 pH 5 MARCIAL neg NIT neg PRO trace GLU normal KET neg UBG normal WILLIAM neg BLD neg Menstrating n/a Complete Blood Count Auto Diff 2020-06-12 White Blood Count 5.0 4.8-10.8 Red Blood Count 4.93 4.60-5.80 Hemoglobin 14.3 14.0-18.0 Hematocrit 44.5 42-52 Mean Corpuscular Volume 90.3 80-9 8 Mean Corpuscular Hemoglobin 29.0 27.0-33.0 Mean Corpuscular HGB Conc 32.1 31 .0-36.0 Red Cell Distribution Width 12.5 11.0-16.0 Platelet Count 283 160-400 Mean Platelet Volume 10.9 9.4-12. 4 Neutrophils Percent Auto 46.1 45- 73 Imm Gran Pct Auto 0.2 0.0-0.4 Lymphocytes Percent Auto 34.9 20- 40 Monocytes Percent Auto 13.2 2-11 Eosinophils Percent Auto 4.6 0-4 Basophils Percent Auto 1.0 0-2 NRBC Pct Auto 0.0 0.0-0.2 Neutrophils Absolute Auto 2.3 2. 0-8.3 Imm Gran Abs Auto 0.01 0.00-0.03 Lymphocytes Absolute Auto 1.8 1. 2-4.9 Monocytes Absolute Auto 0.7 0.1- 1.2 Eosinophils Absolute Auto 0.2 0. 0-0.4 Basophils Absolute Auto 0.1 0.0- 0.2 NRBC Abs Auto 0.000 0.0-0.012 Comprehensive Brandt. Panel Fast 2020-06-12 Sodium 139 135-145 Potassium 5.0 3.3-5.1 Chloride 102 96-108 Carbon Dioxide 29 22-29 Anion Gap 13 12-20 Blood Urea Nitrogen 17 9-16 Creatinine 0.87 0.5-1.4 Estimated Glomerular Filt Rate >60 Glucose Fasting 89 60-99 Calcium 9.4 8.4-10.2 Bilirubin Total 0.6 0.0-1.0 Aspartate Amino Transferase 16 5-37 Alanine Aminotransferase 13 0-4 0 Total Protein 7.4 6.5-8.0 Albumin Level 4.5 3.5-5.0 Alkaline Phosphatase 77 39-117 Lipid Panel 2020-06-12 Triglycerides 89 Cholesterol 218 LDL Cholesterol Calculated 165 HDL Cholesterol 36 Prostate Specific Antigen 2020-06-12 Prostate Specific Antigen 1.06 <0 .05-4.0 REASON FOR VISIT Annual Exam, follow up, Rx Request, Depression, Substance abuse disorder, Overweight, Inguinal hernia, Benign prostatic hypertrophy, Rx Request, chewing tobacco wants to stop , Annual Exam, Right knee pain, Benign prostatic hypertrophy, Depression, gerd, Impression, want referral for mental health , Weight loss, Benign prostatic hypertrophy, GERD, Inguinal hernia, Depression, new concern, Needs call back from MD, follow up, Substance abuse, GERD, Benign prostatic hypertrophy, Depression, Benignprostatic hypertrophy, GERD, Inguinal hernias, Reactive depression, Substance abuse, Depression, Substance abuse, Benign prostatic hypertrophy, GERD, Annual Exam, Followup, hyperlipidemia, GERD, benign prostatic hypertrophy, hyperlipidemia, Copy of colonoscopy/endoscopy, new patient CHP, appt with orthopedic, needs ortho appt due to fractured arm Insurance Providers Health Insurance Type Health Plan Insurance Address Health Plan Insurance Phone Health Plan Insurance Name Health Plan Coverage Dates Member ID Patient Relationship to Subscriber Patient Address Patient Phone Patient Name Patient Date of Subscriber ID Subscriber Name Subscriber Date of Group No [employer] [address] [address] [facility] [phone] [employer] self EMILIE CLAY [id number] MEDICAID [address] [facility] [id number] MEDICAID self EMILIE CLAY [id number]
[2022-09-13 17:18] LABS: Basophils Percent Auto 0.5 % (0-2); Eosinophils Absolute Auto 0.1 X10*3/uL (0.0-0.4); Eosinophils Percent Auto 3.1 % (0-4); Hematocrit 39.3 % (42.0-52.0); Hemoglobin 13.1 g/dl (14.0-18.0); Imm Gran Abs Auto 0.01 X10*3/uL (0.00-0.03); Imm Gran Pct Auto 0.2 % (0.0-0.4); Lymphocytes Absolute Auto 0.6 X10*3/uL (1.2-4.9); Lymphocytes Percent Auto 14.4 % (20-40); Mean Corpuscular HGB Conc 33.3 g/dl (31.0-36.0); Mean Corpuscular Hemoglobin 29.1 pg (27.0-33.0); Mean Corpuscular Volume 87.3 fL (80.0-98.0); Mean Platelet Volume 10.3 fL (9.4-12.4); Monocytes Absolute Auto 0.6 X10*3/uL (0.1-1.2); Monocytes Percent Auto 14.1 % (2-11); Neutrophils Absolute Auto 2.9 x10*3/uL (2.0-8.3); Neutrophils Percent Auto 67.7 % (45-73); Platelet Count 179 X10*3/uL (160-400); Red Cell Distribution Width 12.4 % (11.0-16.0); White Blood Count 4.3 X10*3/uL (4.8-10.8)
[2022-09-13 17:19] LABS: Appearance Urine Clear; Color Urine Yellow; Glucose Urine UA Negative (Negative); Leukocyte Esterase Urine Negative (Negative); Nitrite Urine Negative (Negative); PH 5.5 (5.0-9.0); Specific Gravity - Urine >= 1.030 (1.005-1.025); Urine Blood Negative (Negative); Urine Ketones Negative (Negative); Urine Protein Negative (Neg-Trace)
[2022-09-13 17:50] LABS: Alanine Aminotransferase 95 U/L (0-40); Albumin Level 4.1 g/dL (3.5-5.0); Alkaline Phosphatase 54 U/L (39-117); Anion Gap 14 (12-20); Aspartate Amino Transferase 71 U/L (5-37); Bilirubin Direct 0.1 mg/dL (0.0-0.5); Bilirubin Total 0.4 mg/dL (0.0-1.0); Blood Urea Nitrogen 19 mg/dL (9-16); Calcium 9.3 mg/dL (8.4-10.2); Carbon Dioxide 23 mmol/L (22-29); Chloride 109 mmol/L (96-108); Creatinine Clr Calc Pharmacy 104.5; Estimated Glomerular Filt Rate > 60; Glucose Random 102 mg/dL (60-115); Lipase 15 U/L (8-78); Potassium 3.8 mmol/L (3.3-5.1); Sodium 142 mmol/L (135-145); Total Protein 6.8 g/dL (6.5-8.0)
[2022-09-13] MEDS: iohexoL 350 MG/ML 100 ML INFUS..BTL IV (20:48)
[2022-09-13 21:31] VITALS: BP 153/99; PULSE 68; RESP 18; TEMP 36.7; O2SAT 97
[2022-09-13] MEDS: traMADoL HCL 50 MG TABLET PO (21:38)
[2022-09-13 23:16] VITALS: BP 140/87; PULSE 68; RESP 18; TEMP 37.1; O2SAT 99
[2022-09-14] MEDS: levoFLOXacin 500 MG TABLET PO (00:23)
[2022-09-14] MEDS: metroNIDAZOLE 500 MG TABLET PO (00:23)
== END 2022-09-14 00:28 | disposition home or self-care (01) ==
PROVIDERS: Physician Assistant Medical; Emergency Provider Emergency Medicine; PCP Internal Medicine Medical Oncology
DX: K57.32 Diverticulitis of large intestine without perforation or abscess without bleeding (principal); Z79.899 Other long term (current) drug therapy
CPT/HCPCS: 36415; 74177; 80048; 80076; 81003; 83690; 85025; 99284; Q9967

== ENCOUNTER 2023-10-20 10:39 | Outpatient (REF) | payer BC, SELFPAY ==
[2023-10-20 11:00] LABS: MANUAL DIFF FLAG NO
[2023-10-20 11:11] LABS: Basophils Absolute Auto 0.1 X10*3/uL (0.0-0.2); Basophils Percent Auto 1.3 % (0-2); Eosinophils Absolute Auto 0.2 X10*3/uL (0.0-0.4); Eosinophils Percent Auto 4.3 % (0-4); Hematocrit 47.8 % (42.0-52.0); Hemoglobin 15.4 g/dl (14.0-18.0); Imm Gran Abs Auto 0.01 X10*3/uL (0.00-0.03); Imm Gran Pct Auto 0.3 % (0.0-0.4); Lymphocytes Absolute Auto 1.3 X10*3/uL (1.2-4.9); Lymphocytes Percent Auto 34.6 % (20-40); Mean Corpuscular HGB Conc 32.2 g/dl (31.0-36.0); Mean Corpuscular Hemoglobin 28.6 pg (27.0-33.0); Mean Corpuscular Volume 88.7 fL (80.0-98.0); Mean Platelet Volume 10.2 fL (9.4-12.4); Monocytes Absolute Auto 0.5 X10*3/uL (0.1-1.2); Monocytes Percent Auto 12.1 % (2-11); Neutrophils Absolute Auto 1.8 x10*3/uL (2.0-8.3); Neutrophils Percent Auto 47.4 % (45-73); Platelet Count 318 X10*3/uL (160-400); Red Blood Count 5.39 X10*6/uL (4.60-5.80); White Blood Count 3.7 X10*3/uL (4.8-10.8)
[2023-10-20 11:47] LABS: Alanine Aminotransferase 120 U/L (0-40); Albumin Level 4.3 g/dL (3.5-5.0); Alkaline Phosphatase 49 U/L (39-117); Anion Gap 13 (12-20); Aspartate Amino Transferase 54 U/L (5-37); Bilirubin Total 0.6 mg/dL (0.0-1.0); Blood Urea Nitrogen 20 mg/dL (9-16); Calcium 9.3 mg/dL (8.4-10.2); Carbon Dioxide 27 mmol/L (22-29); Chloride 104 mmol/L (96-108); Cholesterol 295 mg/dL (<200); Estimated Glomerular Filt Rate > 60; Glucose Fasting 91 mg/dL (60-99); HDL Cholesterol 17 mg/dL (>40); LDL Cholesterol Calculated 255 mg/dL (<100); Potassium 4.6 mmol/L (3.3-5.1); Sodium 139 mmol/L (135-145); Total Protein 7.4 g/dL (6.5-8.0); Triglycerides 119 mg/dL (<150)
[2023-10-20 12:04] LABS: Prostate Specific Antigen 0.86 ng/mL (<0.05-4.0)
[2023-10-25 21:14] LABS: Testosterone, Free 10.5 pg/mL (35.0-155.0); Testosterone, Total 42 ng/dL (250-1100)
== END 2023-10-20 10:40 | disposition home or self-care (01) ==
LOC: HO.LAB 10:39
PROVIDERS: PCP Internal Medicine Medical Oncology; Visit Provider Internal Medicine Medical Oncology
DX: Z00.00 Encounter for general adult medical examination without abnormal findings (principal); N40.0 Benign prostatic hyperplasia without lower urinary tract symptoms; K21.9 Gastro-esophageal reflux disease without esophagitis; E66.3 Overweight; Z12.5 Encounter for screening for malignant neoplasm of prostate
CPT/HCPCS: 36415; 80053; 80061; 84153; 84402; 84403; 85025

== ENCOUNTER 2024-01-04 11:00 | Day surgery (SDC) | payer BC, SELFPAY ==
--- NOTE | 2024-01-03 09:48 | P.CONAN_ITS ---
Documented by User: Nehal Chen NP 01/03/24 09:48 HPI - Anesthesia Eval Consult details Narrative: 58yo M for Colonoscopy [facility] Active Problems Active Problems: All Active Problems Pre-op examination (Acute) Depression (Acute) BPH (benign prostatic hyperplasia) (Acute) GERD (gastroesophageal reflux disease) (Acute) Overweight (Acute) Heroin abuse (Acute) Subluxation of right patella (Acute) Past Medical History Medical History Bilateral inguinal hernia Fracture of left ulna History of diverticulitis Surgical History Surgical History H/O wrist surgery History of surgery on arm H/O bilateral inguinal hernia repair Social History Social History Alcohol intake: never Patient Tobacco Use Status: Current everyday Tobacco user Tobacco use type: Smokeless Tobacco Use of substances other than those prescribed or required for medical reasons: No Are you DNR?: No Advance Directives: No Advance Directives Information Provided: Yes Recently lost weight without trying: No Nutrition Risks: No Nutritional Risk Poor oral hygiene: No Current occupational status: unemployed Meds Allergies Allergy/AdvReac Type Severity Reaction Status Date / Time No Known Allergies Allergy Verified 08/22/22 14:59 Home Medications ?Medication ?Instructions ?Recorded ?Confirmed ?Last Taken ?Type clonidine HCl 0.2 mg tablet 0.2 mg PO BID 08/22/22 01/04/24 01/04/24 History omeprazole 20 mg capsule,delayed 20 mg PO DAILY 08/22/22 01/04/24 01/04/24 History release tamsulosin 0.4 mg capsule 0.4 mg PO DAILY 01/04/24 01/04/24 01/04/24 History Assessment and Plan Assessment Anesthesia Assessment: Chart Reviewed Documented by User: Reanna Laureano MD 01/04/24 12:31 [facility] Past Medical History Medical History Bilateral inguinal hernia Fracture of left ulna History of diverticulitis Surgical History Surgical History H/O wrist surgery History of surgery on arm H/O bilateral inguinal hernia repair History of Problems with Anesthesia: No Social History Social History Alcohol intake: never Patient Tobacco Use Status: Current everyday Tobacco user Tobacco use type: Smokeless Tobacco Use of substances other than those prescribed or required for medical reasons: No Are you DNR?: No Advance Directives: No Advance Directives Information Provided: Yes Recently lost weight without trying: No Nutrition Risks: No Nutritional Risk Poor oral hygiene: No Current occupational status: unemployed Meds Allergies Allergy/AdvReac Type Severity Reaction Status Date / Time No Known Allergies Allergy Verified 08/22/22 14:59 Home Medications ?Medication ?Instructions ?Recorded ?Confirmed ?Last Taken ?Type clonidine HCl 0.2 mg tablet 0.2 mg PO BID 08/22/22 01/04/24 01/04/24 History omeprazole 20 mg capsule,delayed 20 mg PO DAILY 08/22/22 01/04/24 01/04/24 History release tamsulosin 0.4 mg capsule 0.4 mg PO DAILY 01/04/24 01/04/24 01/04/24 History Exam Airway Mallampati Class: III TM Dist: >3cm Neck ROM: Full Denture: Upper and Lower Loose/Missing/Broken Teeth: Yes, Upper and Lower Heart: RRR Lungs: CTA Assessment and Plan Assessment Anesthesia Assessment: Anesthesia Plan Discussed Final Anesthetic Review History of Problems with Anesthesia: No NPO: Yes ASA Class: II Final Preanesthetic Review: Meds/Allgs Chart Reviewed, Consent Obtained/Reviewed and Anes Risks/Benef Reviewed Patient Risk: Low Procedure Risk: Low Anesthetic Plan Anesthetic Plan: MAC: Disposition: Standard PACU
[2024-01-04 11:56] VITALS: BMI 27.5
[2024-01-04 12:03] VITALS: BP 124/79; PULSE 66; RESP 16; TEMP 36.8; O2SAT 97
[2024-01-04] MEDS: Lactated Ringers 1,000 ML 100 ML IVCONT (12:14)
--- NOTE | 2024-01-04 12:26 | MHC.SHP ---
Pre-Procedural Eval Section A - 24 Hr Update-Section A only Date of Service: 01/04/24 The patient is an INPATIENT: No The patient has been examined within 24 hours of the surgical procedure. The History & Physical has been completed within 30 days and I have reviewed it.: No Section B - Complete if H&P > 30 days Chief Complaint: screening Relevant Family History (Specify if Yes): No Relevant Social History: Tobacco Use (Former smoker) Present Medications: see Short Stay Collaborative assessment Medical History: Significant History (Bilateral inguinal hernia Fracture of left ulna History of diverticulitis) History of Previous Operations: Relevant previous surgery/procedure and date(s) (H/O bilateral inguinal hernia repair History of surgery on arm) Allergies: Allergies Allergy/AdvReac Type Severity Reaction Status Date / Time No Known Allergies Allergy Verified 08/22/22 14:59 Review of Systems Sugical H&P ROS: Negative: Constitution, Cardiovascular, Respiratory and Gastrointestinal Exam Surgical H&P Exam: Normal: Heart, Normal: Lungs, Normal: Extremities and Normal: Abdomen Plan Diagnosis/Plan: Unchanged I have reviewed the history and physical and performed a pertinent physical examination on my patient. No changes have occurred unless specified. Time Spent With Patient Time: Total time managing care of this patient today ____ minutes.
--- NOTE | 2024-01-04 13:16 | P.OPN-COLO_ITS ---
Colonoscopy Operative Note Operative Note Date of Service: 01/04/24 Narrative: COLONOSCOPY TILL CECUM WITH BIOPSIES AND SNARE POLYPECTOMY Pre-op diagnosis: Colon cancer screening. Post-op diagnosis:? Colon polyps, Diverticulosis, hemorrhoids Endoscopist:? Eduarda Phelps MD Anesthesia:?MAC Consent: Indications for the procedure and potential complications of bleeding, perforation, reaction to medications and missed diagnosis were discussed with the patient and informed consent was obtained. Instrument: Olympus PCF H 190 L variable stiffness pediatric colonoscope Monitoring: Vital signs and clinical assessment, intermittent blood pressure monitoring, continuous EKG monitoring, Pulse oximetry and Carbon Dioxide monitoring were done throughout the procedure. Please see anesthesia flowsheet. Colon withdrawl time was 19 minutes. Procedure: The patient was placed in the left lateral decubitis position and pre-procedure medications were administered. After a digital rectal examination of the ano-rectum, the video colonoscope was inserted into the rectum and advanced through the colon to the cecum. The colonoscope was slowly withdrawn in a retrograde panoramic fashion and the colon mucosa was carefully examined including a retroflexed view of the rectum. Findings and interventions are described below. Procedure Difficulty: without difficulty Findings: Terminal Ileum: Not evaluated Cecum: Normal Ascending Colon: Normal Transverse Colon: A 3-4 mm diminutive appearing polyp - removed with a cold biopsy Descending Colon: Moderate diverticulosis Sigmoid Colon: Moderate diverticulosis Rectum: Two diminutive appearing polyps - removed with cold biopsy. A 3-4 mm sessile polyp - removed with a cold snare Ano-rectum: Small internal hemorrhoids Colon preparation: Excellent, after some irrigation. [place] Bowel Preparation Scale Right colon; 3 Transverse colon: 3 Left colon; 3 (0 = Unprepared colon segment with mucosa not seen due to solid stool that cannot be cleared. 1 = Portion of mucosa of the colon segment seen, but other areas of the colon segment not well seen due to staining, residual stool and/or opaque liquid. 2 = Minor amount of residual staining, small fragments of stool and/or opaque liquid, but mucosa of colon segment seen well. 3 = Entire mucosa of colon segment seen well with no residual staining, small fragments of stool or opaque liquid) Impression and Post Procedure Diagnosis: Colonoscopy Findings: Four small polyps were removed Moderate diverticulosis seen in the left colon Small hemorrhoids on retroflexed exam. Plan: Pt has a FU appointment on 01/24/24 with Lashell Painter, [employer]PERINTENDENT, Repeat Colonoscopy in 3-5 years if polyps are adenomatous and 10 year if polyps are hyperplastic. Above findings were reviewed with the patient and relevant handouts were given and the discharge area.
[2024-01-04 13:17] VITALS: BP 99/64; PULSE 56; RESP 18; TEMP 36.6; O2SAT 99
[2024-01-04 13:32] VITALS: BP 107/73; PULSE 70; RESP 18; O2SAT 97
--- OUTSIDE RECORDS SUMMARY | 2024-01-04 14:56 | XMS_ITS ---
Author Organization Gino Sanders III, MD Address [address] [place] [address] DR MERINO Francesca [place] [id number] Care Team Providers Care Mail Agent Name Role Phone Gino Sanders Primary Care Provider Allergies Allergen (clinical drug ingredient) Drug/Non Drug Allergy documented on EMR Reaction Allergy Type Onset Date Status No Known Drug Allergy Unknown Drug Allergy Active Results Component Value Reference Range Notes URINE DIP STICK Reviewed date:10/21/2023 09:56:39 AM Interpretation: Performing Lab: Notes/Report: SG 1.030 1.005 - 1.025 pH 5.0 5.0 - 9.0 MARCIAL Negative Negative - NIT Negative Negative - PRO 15 Negative - Trace GLU Negative Negative - KET 5 Negative - UBG 0.2 0.1 - 1.8 WILLIAM Negative 0.2 - 1.3 BLD Negative Negative - REASON FOR VISIT Annual Exam Medications Medication SIG (Take, Route, Frequency, Duration) Notes Start Date End Date Status cloNIDine HCl 0.2 MG TAKE 1 TABLET BY MO [facility] TWICE A DAY Active Omeprazole 20 MG TAKE 1 CAPSULE BY MO UT EVERY DAY Active Nicotine Step 3 7 MG/24HR 1 patch to ski n Transdermal Once a day 08/25/2022 Active Nicotine Step 2 14 MG/24HR 1 patch to skin Transdermal Once a day 08/25/2022 Active Nicotine 21 MG/24HR 1 patch to skin Transdermal Once a day 08/01/2022 Active Tamsulosin HCl 0.4 MG 1 capsule Orally O nce a day for 30 days 09/13/2023 09/07/2024 Active Social History Tobacco Use: Social History Observation Description Date Details (start date - stop date) Never Smoker NA - NA Sex Assigned At : Social History Observation Description Sex Assigned At Male Tobacco Use/Smoking Question Answer Notes Patient is a nonsmoker Additional Findings: Tobacco User Chews tobacco Additional Findings: Tobacco Non-User Aggressive non-smoker Alcohol Screen Question Answer Notes Did you have a drink containing alcohol in the p ast year? No Points 0 Interpretation Negative Vital Signs Temperature 98.1 degrees Fahrenheit 09/13/19 24 Blood pressure systolic 114 mm Hg 09/13/19 24 Blood pressure diastolic 85 mm Hg 024 Heart Rate 85 /min 09/13/2023 Height 71 in 09/13/2023 Weight 204 lbs 09/13/2023 BMI 28.45 kg/m2 09/13/2023 Encounters Encounter Location Date Provider Diagnosis Gino Sanders III, MD [address] [place] [address] [facility] [place] [address] 09/13/2023 Gino Sanders Benign prostatic hyperplasia, unspecified whether lower urinary tract symptoms present N40.0 ; Gastroesophageal reflux disease without esophagitis K21.9 ; Overweight E66.3 ; Bilateral inguinal hernia without obstruction or gangrene, recurrence not specified K40.20 ; Reactive depression F32.9 and Substance abuse F19.10 Assessments Encounter Date Diagnosis (ICD Code) Assessment Notes T reatment Notes Treatment Clinical Notes 09/13/2023 Benign prostatic hyperplasia, unspecified whether lower urinary tract symptoms present (ICD-10 - N40.0) He rises from sleep between once and 3 times a night to urinate depending upon fluid ingestion. We discussed lifestyle modification as a means of controlling nocturia. If this is unsuccessful medication will be considered. 09/13/2023 Gastroesophageal reflux disease without esophagitis (ICD-10 - K21.9) He does not wake up at night with reflux. His GERD is well controlled with medication. 09/13/2023 Overweight (ICD-10 - E66.3) His weight is stable and his body mass index is 28. We have discussed weight reduction strategies and diet and nutrition today. 09/13/2023 Bilateral inguinal hernia without obstruction or gangrene, recurrence not specified (ICD-10 - K40.20) Bilateral herniorrhaphies were done in the past and then revised later on. There is no sign of recurrent hernias today. The scars are old and healed. 09/13/2023 Reactive depression (ICD-10 - F32.9) He does not wish to take bupropion anymore as he finds it ineffective. I have given him sertraline today. He will return in 21 days for dose adjustment. 09/13/2023 Substance abuse (ICD-10 - F19.10) He has been clean and sober since July 20, 2022. He is attending meetings regularly. I encouraged him to continue these meetings and to have a sponsor. He declined an offer of naltrexone. Plan Of Treatment Medication Medication Name Sig Start Date Stop Date Notes cloNIDine HCl 0.2 MG TAKE 1 TABLET BY MO [facility] TWICE A DAY Omeprazole 20 MG TAKE 1 CAPSULE BY MO [facility] EVERY DAY Nicotine Step 3 7 MG/24HR 1 patch to ski n Transdermal Once a day 08/25/2022 Nicotine Step 2 14 MG/24HR 1 patch to sk in Transdermal Once a day 08/25/2022 Nicotine 21 MG/24HR 1 patch to skin Johnston sdermal Once a day 08/01/2022 Tamsulosin HCl 0.4 MG 1 capsule Orally O nce a day for 30 days 09/13/2023 09/07/2024 Pending Test Test Name Order Date PROFILE, FASTING (COMPREHENSIVE METABOLI C) 09/13/2023 LIPID PANEL 09/13/2023 PSA, TOTAL 09/13/2023 CBC w DIFF 09/13/2023 Testosterone, Free/Total 09/13/2023 Next Appt Details Follow Up: 2 Months, Reason: ov review labs Provider Name:Gino Sanders, 03/14/2024 01:45:00 PM, [address] [place] [address] [address], [place], [id number], Provider Name:Gino Sanders, 09/16/2024 11:00:00 AM, [address] [place] [address] [address], [place], [phone], Progress Notes * EMILIE CLAYDOB: [birth year] (58 yo M)Acc No.[id number]:09/13/2023 Progress Notes Patient:?EMILIE CLAY Provider:?Gino Sanders MD :1965???Age:58 Y???Sex:Male Clifford e:09/13/2023 Address:[address] [place], [id number] Subjective: * Chief Complaints: * ???Annual Exam * HPI: ???Depression Screening:? noct x 2, gerd is ok,sleeps badly pees and cant go back to sleep, depression is good, vaping not chewing tobacco never moked, [place] [facility] [place] He returns to the office at the age of 58 for his annual physical examination. A colonoscopy has been scheduled for early December 2023. He complains of nocturia once or twice a night. We have discussed the modifications and lifestyle he could make to reduce this. His eesophageal reflux symptoms are controlled with medication. He sleeps poorly but this is a long-time pattern. He falls asleep easily but cannot go back to sleep when he wakes to urinate. His depression is controlled and does not impair his ability to conduct activities of daily living. He has never smoked tobacco but has a long history of chewing tobacco. He is not doing this at the current time but instead he is vaping. He has had no shortness of breath or chest pain. He is not using illegal drugs. He states that he is clean and sober. ?PHQ-9?Little interest or pleasure in doing things?More than half the days ?Feeling down, depressed, or hopeless?Not at all ?Trouble falling or staying asleep, or sleeping too much?Several days ?Feeling tired or having little energy?Several days ?Poor appetite or overeating?Not at all ?Feeling bad about yourself or that you are a failure, or have let yourself or your family down?Not at all ?Trouble concentrating on things, such as reading the newspaper or watching television?Not at all ?Moving or speaking so slowly that other people could have noticed; or the opposite, being so fidgety or restless that you have been moving around a lot more than usual?Not at all ?Thoughts that you would be better off or of hurting yourself in some way?Not at all ?Total Score?4 ?Interpretation?Minimal Depression ???COVID-19 Screening:?Questions?Have you experienced fever, chills, cough, sore throat, shortness of breath, difficulty breathing, muscle aches, loss of taste or smell??No ?Have you been exposed to the virus within the last 10 days??Yes ?Have you travelled internationally in the last 10 days??No ?Have you been exposed to COVID-19 in the past??Yes ???SDOH Questions:?SDOH Questions?In the past year have you been worried about losing your housing??Yes ?In the past year have you or any family members you live with been unable to get any of the following when it was really needed? Check all that apply:?None * ROS:?General/Constitutional:?pain?only normal aches and pains.?Chills?denies.?Fatigue?admits.?Fever?denies.?ENT:?Decreased hearing?denies.?Respiratory:?Cough?denies.?Cardiovascular:?Chest pain with exertion?denies.?Dyspnea on exertion?denies.?Shortness of breath?denies.?Gastrointestinal:?Constipation?occasional.?Decreased appetite?denies.?Diarrhea?denies.?Heartburn?controlled with medications.?Nausea?denies.?Rectal bleeding?denies.?Vomiting?denies.?Hematology:?bruising?denies.?petechiae?denies.?Swollen glands?none have been noted.?Genitourinary:?Frequent urination?once a night.?Musculoskeletal:?Muscle aches?denies.?Painful joints?denies.?Sciatica?denies.?Weakness?denies.?Skin:?Itching?denies.?Rash?denies.?Skin lesion(s)?denies.?Neurologic:?Difficulty speaking?denies.?Dizziness?denies.?Headache?denies.?Low back pain?denies.?Psychiatric:?Depressed mood?which is mild.? * Medical History:? * Surgical History:?Bilateral Inguinal Herniorraphy 6 years agoBilateral Inguinal Hernis revised 15 years agorepair nonunion fractured ulna with bone graft 04/2019surgery left hand 2001colonoscopy with upper endoscopy left ulna repair 2020 * Hospitalization/Major Diagno stic Procedure:?Denies Past Hospitalization * Family History:?Father: dece ased 64 yrs, Alcoholism.?Mother: alive 83 yrs, dementia, good health.?Siblings: alive.?Paternal Grand Father: , bone cancer.?Maternal Grand Mother: , alzheimer's dementia.?4 brother(s) , 2 sister(s) . .? There is no family history of inherited cancer syndromes. He is not aware of any breast cancer or ovarian cancer in his family. On of his 4 brothers had a cardiac valve replaced and has a defibrillator implanted. One brother has avascular necrosis of his hips. His sisters are healthy and well. There is a family history of osteoarthritis. He has 2 children. His father has a history of alcoholism and his mother has a history of dementia. He is not aware of any other family history of substance use disorder or mental illness. * Social History:?Tobacco Use:?Tobacco Use/Smoking?Patient is a?nonsmoker ?Additional Findings: Tobacco User?Chews tobacco ?Additional Findings: Tobacco Non-User?Aggressive non-smoker ???Drugs/Alcohol:?Drugs?Have you used drugs other than those for medical reasons in the past 12 months??No ?Alcohol Screen?Did you have a drink containing alcohol in the past year??No ?Points?0 ?Interpretation?Negative ???He was born in [facility]. He is not a [employer]. 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 He is single with 2 children who live in [place]. They are alive and well. * Medications:?TakingNicotine 21 MG/24HR Patch 24 Hour 1 patch to skin Transdermal Once a dayNicotine Step 2 14 MG/24HR Patch 24 Hour 1 patch to skin Transdermal Once a dayNicotine Step 3 7 MG/24HR Patch 24 Hour 1 patch to skin Transdermal Once a dayOmeprazole 20 MG Capsule Delayed Release TAKE 1 CAPSULE BY MOUTH EVERY DAY cloNIDine HCl 0.2 MG Tablet TAKE 1 TABLET BY MOUTH TWICE A DAY Taking Nicotine 21 MG/24HR Patch 24 Hour 1 patch to skin Transdermal Once a dayTaking Nicotine Step 2 14 MG/24HR Patch 24 Hour 1 patch to skin Transdermal Once a dayTaking Nicotine Step 3 7 MG/24HR Patch 24 Hour 1 patch to skin Transdermal Once a dayTaking Omeprazole 20 MG Capsule Delayed Release TAKE 1 CAPSULE BY MOUTH EVERY DAY Taking cloNIDine HCl 0.2 MG Tablet TAKE 1 TABLET BY MOUTH TWICE A DAY DiscontinuedFluoxetine 20 MG Capsule 1 capsule Orally Once a dayCiprofloxacin HCl 500 MG Tablet 1 tablet Orally every 12 hrsMedication List reviewed and reconciled with the patientDiscontinued Fluoxetine 20 MG Capsule 1 capsule Orally Once a dayDiscontinued Ciprofloxacin HCl 500 MG Tablet 1 tablet Orally every 12 hrsMedication List reviewed and reconciled with the patient * Allergies:?No Known Drug All ergyno[Allergies Verified] Objective: * Vitals:?Ht: 71, Wt: 204, BMI :28.45, BP: 114/85, HR: 85, Temp: 98.1, Ht-cm: 180.34, Wt-k.53. * Examination: ???General Examination: ?GENERAL APPEARANCE:?pleasant, well nourished, well developed, in no acute distress, calm and relaxed , overweight , man.?HEAD:?atraumatic, normocephalic.?EYES:?eomi, perrla, anicteric, conjugate.?EARS:?normal.?NOSE:?septum intact.?ORAL CAVITY:?normal, unremarkable.?NECK/THYROID:?no jugular venous distention, no carotid bruit, thyroid normal.?LYMPH NODES:?no enlarged lymph nodes,spleen normal.?SKIN:?no suspicious lesions, anicteric, Multiple tattoos.?HEART:?no clicks, gallops, murmurs, or rubs, regular rhythm, S1, S2 normal, no s3, or vascular bruits.?LUNGS:?clear to auscultation .?BREASTS:??no masses palpable bilaterally.?ABDOMEN:?bowel sounds normal, no ascites, no organomegaly, no mass , overweight, No hernias.?RECTAL EXAM:?not examined.?MUSCULOSKELETAL:?extremities unremarkable, no clubbing, cyanosis or edema.?PERIPHERAL PULSES:?normal.?NEUROLOGIC:?alert and oriented, cranial nerves 2-12 grossly intact, deep tendon reflexes 2+ symmetrical, motor strength normal upper and lower extremities, sensory exam intact.?PSYCH:?alert, oriented , cognitive function intact , cooperative with exam , good eye contact , mood/affect full range , speech clear.? Assessment: * Assessment: 1.?Benign prostatic hyperpla swati, unspecified whether lower urinary tract symptoms present - N40.0 (Primary), He rises from sleep between once and 3 times a night to urinate depending upon fluid ingestion. We discussed lifestyle modification as a means of controlling nocturia. If this is unsuccessful medication will be considered.?2.?Gastroesophageal reflux disease without esophagitis - K21.9, He does not wake up at night with reflux. His GERD is well controlled with medication.?3.?Overweight - E66.3, His weight is stable and his body mass index is 28. We have discussed weight reduction strategies and diet and nutrition today.?4.?Bilateral inguinal hernia without obstruction or gangrene, recurrence not specified - K40.20, Bilateral herniorrhaphies were done in the past and then revised later on. There is no sign of recurrent hernias today. The scars are old and healed.?5.?Reactive depression - F32.9, He does not wish to take bupropion anymore as he finds it ineffective. I have given him sertraline today. He will return in 21 days for dose adjustment.?6.?Substance abuse - F19.10, He has been clean and sober since July 20, 2022. He is attending meetings regularly. I encouraged him to continue these meetings and to have a sponsor. He declined an offer of naltrexone.? Plan: * Treatment: 2.?Gastroesophageal reflux d isease without esophagitis?LAB: PROFILE, FASTING (COMPREHENSIVE METABOLIC) ?LAB: LIPID PANEL ?LAB: PSA, TOTAL ?LAB: CBC w DIFF ?LAB: Testosterone, Free/Total 3.?Overweight?LAB: PROFILE, FASTING (COMPREHENSIVE METABOLIC) ?LAB: LIPID PANEL ?LAB: PSA, TOTAL ?LAB: CBC w DIFF ?LAB: Testosterone, Free/Total 4.?Others? Continue Nicotine Patch 24 Hour, 21 MG/24HR, 1 patch to skin, Transdermal, Once a day;?Continue Nicotine Step 2 Patch 24 Hour, 14 MG/24HR, 1 patch to skin, Transdermal, Once a day;?Continue Nicotine Step 3 Patch 24 Hour, 7 MG/24HR, 1 patch to skin, Transdermal, Once a day;?Continue Omeprazole Capsule Delayed Release, 20 MG, TAKE 1 CAPSULE BY MOUTH EVERY DAY;?Continue cloNIDine HCl Tablet, 0.2 MG, TAKE 1 TABLET BY MOUTH TWICE A DAY.?? * Labs:? * ?Lab: URINE DIP STICK ? Value Reference Range ?SG 1.030 1.005 - 1.025 * ?pH 5.0 5.0 - 9.0 * ?MARCIAL Negative Negative - * ?NIT Negative Negative - * ?PRO 15 Negative - Trac e * ?GLU Negative Negative - * ?KET 5 Negative - * ?UBG 0.2 0.1 - 1.8 * ?WILLIAM Negative 0.2 - 1.3 * ?BLD Negative Negative - * Procedure Codes:?91373 URINE -NO MICRO * Preventive Medicine:? ??Counseling:?Care goal follow-up plan:?Counseling for abnormal BMI given?Yes ?Above Normal BMI Follow-up?Dietary management education, guidance, and counseling, Dietary needs education, Exercise promotion: strength training, Exercise promotion: stretching, Feeding regime, Giving encouragement to exercise, Lifestyle education regarding diet, Nutrition / feeding management, Nutrition therapy, Prescribed activity/exercise education, Prescribed diet education, Prescribed dietary intake, Special diet education, Weight monitoring , Intervention, Order not done: Medical or Other reason not done ?Smoking/Tobacco Use?Patient counseled on the dangers of tobacco use and urged to quit.?09/13/2023 * Follow Up:?2 Months (Reason: ov review labs) * Images: * Sign off status: Completed true * Provider:?Gino Sanders MD Date:?02/2023 Generated for Deanna foote/Uyen/Julio Cesaritting on:?01/04/2024 02:56 PM EST History and Physical Notes * HPI (History of Present Illness) Category Sub-Category Detail Notes Depression Screening PHQ-9 Little inte rest or pleasure in doing things: More than half the days Feeling down, depressed, or hopeless: No t at all Trouble falling or staying asleep, or sl eeping too much: Several days Feeling tired or having little energy: S everal days Poor appetite or overeating: Not at all Feeling bad about yourself o r that you are a failure, or have let yourself or your family down: Not at all Trouble concentrating on thi ngs, such as reading the newspaper or watching television: Not at all Moving or speaking so slowly that other people could have noticed; or the opposite, being so fidgety or restless that you have been moving around a lot more than usual: Not at all Thoughts that you would be b carlos alberto off or of hurting yourself in some way: Not at all Total Score: 4 Interpretation: Minimal Depression COVID-19 Screening Questions Have you expe rienced fever, chills, cough, sore throat, shortness of breath, difficulty breathing, muscle aches, loss of taste or smell?: No Have you been exposed to the virus with n the last 10 days?: Yes Have you travelled internationally in e last 10 days?: No Have you been exposed to COVID-19 in the past?: Yes SDOH Questions SDOH Questions In the past year have you been worried about losing your housing?: Yes In the past year have you or any family members you live with been unable to get any of the following when it was really needed? Check all that apply:: None Examination Category Sub-Category Detail Notes General Examination GENERAL APPEARANCE: pleasant , well nourished, well developed, in no acute distress, calm and relaxed , overweight , man HEAD: atraumatic, normocep halic EYES: eomi, perrla, anicte ambrose, conjugate EARS: normal NOSE: septum intact NECK/THYROID: no jugular venous di stention, no carotid bruit, thyroid normal HEART: no clicks, gallops, murmurs, or rubs, regular rhythm, S1, S2 normal, no s3, or vascular bruits LUNGS: clear to auscultatio n ABDOMEN: bowel sounds normal, no ascites, no organomegaly, no mass , overweight, No hernias NEUROLOGIC: alert and oriented, cranial nerves 2-12 grossly intact, deep tendon reflexes 2+ symmetrical, motor strength normal upper and lower extremities, sensory exam intact SKIN: no suspicious lesion s, anicteric, Multiple tattoos PERIPHERAL PULSES: normal BREASTS: no masses palpable b ilaterally MUSCULOSKELETAL: extremities unremark able, no clubbing, cyanosis or edema LYMPH NODES: no enlarged lymph no toni,spleen normal RECTAL EXAM: not examined PSYCH: alert, oriented , co gnitive function intact , cooperative with exam , good eye contact , mood/affect full range , speech clear ORAL CAVITY: normal, unremarkable
--- OUTSIDE RECORDS SUMMARY | 2024-01-04 14:56 | XMS_ITS ---
Author Organization Gino Sanders III, MD Address [address] [place] [address] DR MERINO Francesca [place] [address] Care Team Providers Care Kiln Tester Name Role Phone Gino Sanders Primary Care Provider [phone] Allergies Allergen (clinical drug ingredient) Drug/Non Drug Allergy documented on EMR Reaction Allergy Type Onset Date Status No Known Drug Allergy Unknown Drug Allergy Active REASON FOR VISIT Benign prosthetic hypertrophy, GERD, History of bilateral inguinal hernias, Depression Medications Medication SIG (Take, Route, Frequency, Duration) Notes Start Date End Date Status Nicotine Step 2 14 MG/24HR 1 patch to sk in Transdermal Once a day 08/25/2022 Active Nicotine Step 3 7 MG/24HR 1 patch to ski n Transdermal Once a day 08/25/2022 Active Nicotine 21 MG/24HR 1 patch to skin Transdermal Once a day 08/01/2022 Active Tamsulosin HCl 0.4 MG 1 capsule Orally O nce a day 09/13/2023 Active cloNIDine HCl 0.2 MG TAKE 1 TABLET BY MO [place] TWICE A DAY Active Omeprazole 20 MG TAKE 1 CAPSULE BY MO UT EVERY DAY Active Social History Tobacco Use: Social History Observation Description Date Details (start date - stop date) Never Smoker NA - NA Sex Assigned At : Social History Observation Description Sex Assigned At Male Tobacco Use/Smoking Question Answer Notes Patient is a nonsmoker Additional Findings: Tobacco User Chews tobacco Additional Findings: Tobacco Non-User Aggressive non-smoker Vital Signs Temperature 97.2 degrees Fahrenheit 11/08/19 24 Blood pressure systolic 129 mm Hg 11/08/19 24 Blood pressure diastolic 82 mm Hg 024 Heart Rate 75 /min 11/08/2023 Height 71 in 11/08/2023 Weight 210 lbs 11/08/2023 BMI 29.29 kg/m2 11/08/2023 Encounters Encounter Location Date Provider Diagnosis Gino Sanders III, MD [address] [place] [address] DR [place], [place] [address] 11/08/2023 Gino Sanders Benign prostatic hyperplasia, unspecified whether lower urinary tract symptoms present N40.0 ; Hyperlipidemia, unspecified hyperlipidemia type E78.5 ; Overweight E66.3 ; Other closed fracture of distal end of left ulna, sequela S52.692S ; Bilateral inguinal hernia without obstruction or gangrene, recurrence not specified K40.20 ; Reactive depression F32.9 and Substance abuse F19.10 Assessments Encounter Date Diagnosis (ICD Code) Assessment Notes Treat ment Notes Treatment Clinical Notes 11/08/2023 Benign prostatic hyperplasia, unspecified whether lower urinary tract symptoms present (ICD-10 - N40.0) He rises from sleep between once and 3 times a night to urinate depending upon fluid ingestion. We discussed lifestyle modification as a means of controlling nocturia. If this is unsuccessful medication will be considered. 11/08/2023 Hyperlipidemia, unspecified hyperlipidemia type (ICD-10 - E78.5) His total cholesterol is 295 which is much higher than usual. He has included a large amount of red meat in his diet. The value will be repeated without eating red meat for 1 week. I have reviewed with him the dietary sources of cholesterol and its potential risks. 11/08/2023 Overweight (ICD-10 - E66.3) He has gained 6 pounds. His body mass index is 29. He is overweight and we have reviewed his diet and nutrition. He believes the weight gain is muscle mass hated by his consuming red meat and taking androgens. 11/08/2023 Other closed fracture of distal end of left ulna, sequela (ICD-10 - S52.692S) The arm is functional today. He has recovered from the surgery and will not require additional orthopedic care. 11/08/2023 Bilateral inguinal hernia without obstruction or gangrene, recurrence not specified (ICD-10 - K40.20) Bilateral herniorrhaphies were done in the past and then revised later on. There is no sign of recurrent hernias today. The scars are old and healed. 11/08/2023 Reactive depression (ICD-10 - F32.9) He does not wish to take bupropion anymore as he finds it ineffective. I have given him sertraline today. He will return in 21 days for dose adjustment. 11/08/2023 Substance abuse (ICD-10 - F19.10) He has been clean and sober since July 20, 2022. He is attending meetings regularly. I encouraged him to continue these meetings and to have a sponsor. He declined an offer of naltrexone. Plan Of Treatment Medication Medication Name Sig Start Date Stop Date Notes Nicotine Step 2 14 MG/24HR 1 patch to sk in Transdermal Once a day 08/25/2022 Nicotine Step 3 7 MG/24HR 1 patch to ski n Transdermal Once a day 08/25/2022 Nicotine 21 MG/24HR 1 patch to skin Johnston sdermal Once a day 08/01/2022 Tamsulosin HCl 0.4 MG 1 capsule Orally Once a day 09/13/19 cloNIDine HCl 0.2 MG TAKE 1 TABLET BY [facility] TWICE A DAY Omeprazole 20 MG TAKE 1 CAPSULE BY [facility] EVERY DAY Pending Test Test Name Order Date PROFILE, FASTING (COMPREHENSIVE METABOLI C) 11/08/2023 PSA, TOTAL 11/08/2023 CBC WITH AUTO DIFF 11/08/2023 Lipid Panel 11/08/2023 Testosterone, Total 11/08/2023 Next Appt Details Follow Up: 4 Months, Reason: OV Provider Name:Gino Sanders, 03/14/2024 01:45:00 PM, [address] [place] [address] [address], [place], [phone], Provider Name:Gino Sanders, 09/16/2024 11:00:00 AM, [address] [place] [address] [address], [place], [phone], Progress Notes * EMILIE CLAYDOB: [birth year] (58 yo M)Acc No.[id number]:11/08/2023 Progress Notes Patient:?EMILIE CLAY Provider:?Gino Sanders MD :1965???Age:58 Y???Sex:Male Clifford e:11/08/2023 Address: [address] [id number] Subjective: * Chief Complaints: * ???Benign prosthetic hypertr ophyGERDHistory of bilateral inguinal herniasDepression * HPI: ???COVID-19 Screening:?He returns for medical management.? He does not smoke tobacco but he is vaping.? He rises from sleep once a night to urinate.? We have discussed lifestyle modifications he could make to prevent nocturia.? His blood work was reviewed and his total cholesterol was 295.? He says he has been eating a large amount of steak to help him build muscle. This will be repeated after a short time with strict fasting.? He is going to a gym, [employer], in [place].? His goal is to become stronger by building muscle.? His testosterone level was quite low and he says he has been taking danabol.? I strongly recommended he stop taking that substance.? He assured me he would.? We have reviewed the potential side effects of unneeded androgenic substances.His total morning testosterone will be repeated with the cholesterol. ?Questions?Have you experienced fever, chills, cough, sore throat, shortness of breath, difficulty breathing, muscle aches, loss of taste or smell??No ?Have you been exposed to the virus within the last 10 days??No ?Have you travelled internationally in the last 10 days??No ?Have you been exposed to COVID-19 in the past??Yes * ROS:?General/Constitutional:?pain?only normal aches and pains.?Chills?denies.?Fatigue?admits.?Fever?denies.?ENT:?Decreased hearing?denies.?Respiratory:?Cough?non-productive.?Cardiovascular:?Chest pain with exertion?denies.?Dyspnea on exertion?denies.?Shortness of breath?denies.?Gastrointestinal:?Constipation?occasional.?Decreased appetite?denies.?Diarrhea?denies.?Heartburn?denies.?Nausea?denies.?Rectal bleeding?denies.?Vomiting?denies.?Hematology:?bruising?denies.?petechiae?denies.?Swollen glands?none have been noted.?Genitourinary:?Frequent urination?once a night.?Musculoskeletal:?Muscle aches?denies.?Painful joints?denies.?Sciatica?denies.?Weakness?denies.?Skin:?Itching?denies.?Rash?denies.?Skin lesion(s)?denies.?Neurologic:?Difficulty speaking?denies.?Dizziness?denies.?Headache?denies.?Low back pain?denies.?Psychiatric:?Depressed mood?which is mild.? * Medical History:? * Surgical History:?Bilateral Inguinal Herniorraphy 6 years agoBilateral Inguinal Herniorraphies revised 15 years agorepair nonunion fractured ulna [...] User?Chews tobacco ?Additional Findings: Tobacco Non-User?Aggressive non-smoker ???He was born in [facility]. He is not a Pentecostalism. 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 He is single with 2 children who live in [place]. They are alive and well. * Medications:?TakingNicotine 21 MG/24HR Patch 24 Hour 1 patch to skin Transdermal Once a day Nicotine Step 2 14 MG/24HR Patch 24 Hour 1 patch to skin Transdermal Once a day Nicotine Step 3 7 MG/24HR Patch 24 Hour 1 patch to skin Transdermal Once a day Omeprazole 20 MG Capsule Delayed Release TAKE 1 CAPSULE BY MOUTH EVERY DAY cloNIDine HCl 0.2 MG Tablet TAKE 1 TABLET BY MOUTH TWICE A DAY Tamsulosin HCl 0.4 MG Capsule 1 capsule Orally Once a day , stop date 09/07/2024Medication List reviewed and reconciled with the patientTaking Nicotine 21 MG/24HR Patch 24 Hour 1 patch to skin Transdermal Once a day Taking Nicotine Step 2 14 MG/24HR Patch 24 Hour 1 patch to skin Transdermal Once a day Taking Nicotine Step 3 7 MG/24HR Patch 24 Hour 1 patch to skin Transdermal Once a day Taking Omeprazole 20 MG Capsule Delayed Release TAKE 1 CAPSULE BY MOUTH EVERY DAY Taking cloNIDine HCl 0.2 MG Tablet TAKE 1 TABLET BY MOUTH TWICE A DAY Taking Tamsulosin HCl 0.4 MG Capsule 1 capsule Orally Once a day , stop date 09/07/2024Medication List reviewed and reconciled with the patient * Allergies:?No Known Drug All ergyno[Allergies Verified] Objective: * Vitals:?Ht: 71, Wt: 210, BMI :29.29, BP: 129/82, HR: 75, Temp: 97.2, Ht-cm: 180.34, Wt-k.25. * ???Past Orders: Lab:Prostate Specific Antige n * Collection Date 10/20/2023 05/26/2022 06/12/2020 Collection Time 10:59 AM 11:06 AM 10:26 AM Order Date 10/20/2023 05/26/2022 06/12/2020 Prostate Specific Antigen 0.86 (Ref Range: <0.05-4.0 ng/mL) 0.95 (Ref Range: <0.05-4.0 ng/mL) 1.06 (Ref Range: <0.05-4.0 ng/mL) * Lab:Complete Blood Count Aut o Diff * Collection Date 10/20/2023 09/13/2022 05/26/2022 Collection Time 10:59 AM 05:08 PM 11:06 AM Order Date 10/20/2023 09/13/2022 05/26/2022 White Blood Count 3.7?L (Ref Range: 4.8-10.8 X10*3/uL) 4.3?L (Ref Range: 4.8-10.8 X10*3/uL) 5.2 (Ref Range: 4.8-10.8 X10*3/uL) Red Blood Count 5.39 (Ref Range: 4.60-5.80 X10*6/uL) 4.50?L (Ref Range: 4.60-5.80 X10*6/uL) 5.07 (Ref Range: 4.60-5.80 X10*6/uL) Hemoglobin 15.4 (Ref Range: 14.0-18.0 g/dl) 13.1?L (Ref Range: 14.0-18.0 g/dl) 14.7 (Ref Range: 14.0-18.0 g/dl) Hematocrit 47.8 (Ref Range: 42.0-52.0 %) 39.3?L (Ref Range: 42.0-52.0 %) 44.8 (Ref Range: 42.0-52.0 %) Mean Corpuscular Volume 88.7 (Ref Range: 80.0-98.0 fL) 87.3 (Ref Range: 80.0-98.0 fL) 88.4 (Ref Range: 80.0-98.0 fL) Mean Corpuscular Hemoglobin 28.6 (Ref Range: 27.0-33.0 pg) 29.1 (Ref Range: 27.0-33.0 pg) 29.0 (Ref Range: 27.0-33.0 pg) Mean Corpuscular HGB Conc 32.2 (Ref Range: 31.0-36.0 g/dl) 33.3 (Ref Range: 31.0-36.0 g/dl) 32.8 (Ref Range: 31.0-36.0 g/dl) Red Cell Distribution Width 13.0 (Ref Range: 11.0-16.0 %) 12.4 (Ref Range: 11.0-16.0 %) 12.6 (Ref Range: 11.0-16.0 %) Platelet Count 318 (Ref Range: 160-400 X10*3/uL) 179 (Ref Range: 160-400 X10*3/uL) 278 (Ref Range: 160-400 X10*3/uL) Mean Platelet Volume 10.2 (Ref Range: 9.4-12.4 fL) 10.3 (Ref Range: 9.4-12.4 fL) 10.6 (Ref Range: 9.4-12.4 fL) Neutrophils Percent Auto 47.4 (Ref Range: 45-73 %) 67.7 (Ref Range: 45-73 %) 51.0 (Ref Range: 45-73 %) Imm Gran Pct Auto 0.3 (Ref Range: 0.0-0.4 %) 0.2 (Ref Range: 0.0-0.4 %) 0.4 (Ref Range: 0.0-0.4 %) Lymphocytes Percent Auto 34.6 (Ref Range: 20-40 %) 14.4?L (Ref Range: 20-40 %) 31.8 (Ref Range: 20-40 %) Monocytes Percent Auto 12.1?H (Ref Range: 2-11 %) 14.1?H (Ref Range: 2-11 %) 11.5?H (Ref Range: 2-11 %) Eosinophils Percent Auto 4.3?H (Ref Range: 0-4 %) 3.1 (Ref Range: 0-4 %) 4.0 (Ref Range: 0-4 %) Basophils Percent Auto 1.3 (Ref Range: 0-2 %) 0.5 (Ref Range: 0-2 %) 1.3 (Ref Range: 0-2 %) NRBC Pct Auto 0.0 (Ref Range: 0.0-0.2 /100WBC) 0.0 (Ref Range: 0.0-0.2 /100WBC) 0.0 (Ref Range: 0.0-0.2 /100WBC) Neutrophils Absolute Auto 1.8?L (Ref Range: 2.0-8.3 x10*3/uL) 2.9 (Ref Range: 2.0-8.3 x10*3/uL) 2.7 (Ref Range: 2.0-8.3 x10*3/uL) Imm Gran Abs Auto 0.01 (Ref Range: 0.00-0.03 X10*3/uL) 0.01 (Ref Range: 0.00-0.03 X10*3/uL) 0.02 (Ref Range: 0.00-0.03 X10*3/uL) Lymphocytes Absolute Auto 1.3 (Ref Range: 1.2-4.9 X10*3/uL) 0.6?L (Ref Range: 1.2-4.9 X10*3/uL) 1.7 (Ref Range: 1.2-4.9 X10*3/uL) Monocytes Absolute Auto 0.5 (Ref Range: 0.1-1.2 X10*3/uL) 0.6 (Ref Range: 0.1-1.2 X10*3/uL) 0.6 (Ref Range: 0.1-1.2 X10*3/uL) Eosinophils Absolute Auto 0.2 (Ref Range: 0.0-0.4 X10*3/uL) 0.1 (Ref Range: 0.0-0.4 X10*3/uL) 0.2 (Ref Range: 0.0-0.4 X10*3/uL) Basophils Absolute Auto 0.1 (Ref Range: 0.0-0.2 X10*3/uL) 0.0 (Ref Range: 0.0-0.2 X10*3/uL) 0.1 (Ref Range: 0.0-0.2 X10*3/uL) NRBC Abs Auto 0.000 (Ref Range: 0.0-0.012 X10*3/uL) 0.000 (Ref Range: 0.0-0.012 X10*3/uL) 0.000 (Ref Range: 0.0-0.012 X10*3/uL) * Lab:Kevin Early l Fast * Collection Date 10/20/2023 06/12/2020 Collection Time 10:59 AM 10:26 AM Order Date 10/20/2023 06/12/2020 Sodium 139 (Ref Range: 135-145 mmol/L) 139 (Ref Range: 135-145 mmol/L) Bilirubin Total 0.6 (Ref Range: 0.0-1.0 mg/dL) 0.6 (Ref Range: 0.0-1.0 mg/dL) Aspartate Amino Transferase 54?H (Ref Range: 5-37 U/L) 16 (Ref Range: 5-37 U/L) Alanine Aminotransferase 120?H (Ref Range: 0-40 U/L) 13 (Ref Range: 0-40 U/L) Total Protein 7.4 (Ref Range: 6.5-8.0 g/dL) 7.4 (Ref Range: 6.5-8.0 g/dL) Albumin Level 4.3 (Ref Range: 3.5-5.0 g/dL) 4.5 (Ref Range: 3.5-5.0 g/dL) Alkaline Phosphatase 49 (Ref Range: 39-117 U/L) 77 (Ref Range: 39-117 U/L) Potassium 4.6 (Ref Range: 3.3-5.1 mmol/L) 5.0 (Ref Range: 3.3-5.1 mmol/L) Chloride 104 (Ref Range: 96-108 mmol/L) 102 (Ref Range: 96-108 mmol/L) Carbon Dioxide 27 (Ref Range: 22-29 mmol/L) 29 (Ref Range: 22-29 mmol/L) Anion Gap 13 (Ref Range: 12-20) 13 (Ref Range: 12-20) Blood Urea Nitrogen 20?H (Ref Range: 9-16 mg/dL) 17?H (Ref Range: 9-16 mg/dL) Creatinine 1.15 (Ref Range: 0.5-1.4 mg/dL) 0.87 (Ref Range: 0.5-1.4 mg/dL) Estimated Glomerular Filt Rate > 60 > 60 Glucose Fasting 91 (Ref Range: 60-99 mg/dL) 89 (Ref Range: 60-99 mg/dL) Calcium 9.3 (Ref Range: 8.4-10.2 mg/dL) 9.4 (Ref Range: 8.4-10.2 mg/dL) * Lab:Lipid Panel * Collection Date 10/20/2023 05/26/2022 06/12/2020 Collection Time 10:59 AM 11:06 AM 10:26 AM Order Date 10/20/2023 05/26/2022 06/12/2020 Triglycerides 119 (Ref Range: <150 mg/dL) 89 (Ref Range: mg/dL) 89 (Ref Range: mg/dL) Cholesterol 295?H (Ref Range: <200 mg/dL) 244 (Ref Range: mg/dL) 218 (Ref Range: mg/dL) LDL Cholesterol Calculated 255?H (Ref Range: <100 mg/dL) 182 (Ref Range: mg/dl) 165 (Ref Range: mg/dl) HDL Cholesterol 17?L (Ref Range: >40 mg/dL) 45 (Ref Range: mg/dL) 36 (Ref Range: mg/dL) ???Lab:Testosterone, Free/Total (Order Date - 10/20/2023) (Collection Date & Time - 10/20/2023 10:59 AM)?ValueReference Range?Testosterone, [id number] - ng/dL?Testosterone, Free10.5A35.0-155.0 - pg/mL * Lab:URINE DIP STICK * Collection Date 09/13/2023 07/03/2022 06/28/2021 Order Date 09/13/2023 07/03/2022 06/28/2021 Result: Normal SG 1.030 (Ref Range: 1.005 - 1.025) 1.030 (Ref Range: 1.005 - 1.025) 1.025 pH 5.0 (Ref Range: 5.0 - 9.0) 5.0 (Ref Range: 5.0 - 9.0) 5 MARCIAL Negative (Ref Range: Negative -) Neg (Ref Range: Negative -) neg NIT Negative (Ref Range: Negative -) Neg (Ref Range: Negative -) neg PRO 15 (Ref Range: Negative - Trace) 15 (Ref Range: Negative - Trace) trace GLU Negative (Ref Range: Negative -) Neg (Ref Range: Negative -) normal KET 5 (Ref Range: Negative -) Neg (Ref Range: Negative -) neg UBG 0.2 (Ref Range: 0.1 - 1.8) 0.2 (Ref Range: 0.1 - 1.8) normal WILLIAM Negative (Ref Range: 0.2 - 1.3) Neg (Ref Range: 0.2 - 1.3) neg BLD Negative (Ref Range: Negative -) Neg (Ref Range: Negative -) neg Menstrating NR N/A n/a * Examination: ???General Examination: ?GENERAL APPEARANCE:?pleasant, well nourished, well developed, in no acute distress, calm and relaxed.?HEAD:?atraumatic, normocephalic.?EYES:?eomi, perrla, anicteric, conjugate.?EARS:?normal.?NOSE:?septum intact.?ORAL CAVITY:?normal, unremarkable.?NECK/THYROID:?no jugular venous distention, no carotid bruit, thyroid normal.?LYMPH NODES:?no enlarged lymph nodes,spleen normal.?SKIN:?no suspicious lesions, anicteric.?HEART:?no clicks, gallops, murmurs, or rubs, regular rhythm, S1, S2 normal, no s3, or vascular bruits.?LUNGS:?clear to auscultation .?BREASTS:??no masses palpable bilaterally.?ABDOMEN:?bowel sounds normal, no ascites, no organomegaly, no mass.?RECTAL EXAM:?not examined.?MUSCULOSKELETAL:?extremities unremarkable, no clubbing, cyanosis or edema.?PERIPHERAL PULSES:?normal.?NEUROLOGIC:?alert and oriented, cranial nerves 2-12 grossly intact, deep tendon reflexes 2+ symmetrical, motor strength normal upper and lower extremities, sensory exam intact.?PSYCH:?alert, oriented.? Assessment: * Assessment: 1.?Hyperlipidemia, unspecifi ed hyperlipidemia type - E78.5 (Primary)???Notes :His total cholesterol is 295 which is much higher than usual.? He has included a large amount of red meat in his diet.? The value will be repeated without eating red meat for 1 week.? I have reviewed with him the dietary sources of cholesterol and its potential risks.???2.?Benign prostatic hyperplasia, unspecified whether lower urinary tract symptoms present - N40.0???Notes :He rises from sleep between once and 3 times a night to urinate depending upon fluid ingestion. We discussed lifestyle modification as a means of controlling nocturia. If this is unsuccessful medication will be considered.???3.?Overweight - E66.3???Notes :He has gained 6 pounds.? His body mass index is 29.? He is overweight and we have reviewed his diet and nutrition.? He believes the weight gain is muscle mass hated by his consuming red meat and taking androgens.???4.?Other closed fracture of distal end of left ulna, sequela - S52.692S???Notes :The arm is functional today. He has recovered from the surgery and will not require additional orthopedic care.???5.?Bilateral inguinal hernia without obstruction or gangrene, recurrence not specified - K40.20???Notes :Bilateral herniorrhaphies were done in the past and then revised later on. There is no sign of recurrent hernias today. The scars are old and healed.???6.?Reactive depression - F32.9???Notes :He does not wish to take bupropion anymore as he finds it ineffective. I have given him sertraline today. He will return in 21 days for dose adjustment.???7.?Substance abuse - F19.10???Notes :He has been clean and sober since July 20, 2022. He is attending meetings regularly. I encouraged him to continue these meetings and to have a sponsor. He declined an offer of naltrexone.??? Plan: * Treatment: 2.?Benign prostatic hyperpla swati, unspecified whether lower urinary tract symptoms present? Continue Tamsulosin HCl Capsule, 0.4 MG, 1 capsule, Orally, Once a day.?LAB: PROFILE, FASTING (COMPREHENSIVE METABOLIC) ?LAB: PSA, TOTAL ?LAB: CBC WITH AUTO DIFF ?LAB: Lipid Panel ?LAB: Testosterone, Total 3.?Overweight?LAB: PROFILE, FASTING (COMPREHENSIVE METABOLIC) ?LAB: PSA, TOTAL ?LAB: CBC WITH AUTO DIFF ?LAB: Lipid Panel ?LAB: Testosterone, Total 4.?Others? Continue Nicotine Patch 24 Hour, 21 [...] TABLET BY MOUTH TWICE A DAY.?? * Procedure Codes:? * Preventive Medicine:? ??Counseling:?Care goal follow-up plan:?Counseling [...] done: Medical or Other reason not done * Follow Up:?4 Months (Reason: OV) * Images: * Sign off status: Completed true * Provider:?Gino Sanders MD Date:?10/14 Generated for Printi ng/Uyen/eTransmitting on:?01/04/2024 02:56 PM EST History and Physical Notes * HPI (History of Present Illness) Category Sub-Category Detail Notes COVID-19 Screening Questions Have you expe rienced fever, chills, cough, sore throat, shortness of breath, difficulty breathing, muscle aches, loss of taste or smell?: No Have you been exposed to the virus withi n the last 10 days?: No Have you travelled internationally in last 10 days?: No Have you been exposed to COVID-19 in the past?: Yes Examination Category Sub-Category Detail Notes General Examination GENERAL APPEARANCE: pleasant , well nourished, well developed, in no acute distress, calm and relaxed HEAD: atraumatic, normocep halic EYES: eomi, perrla, anicte ambrose, conjugate EARS: normal NOSE: septum intact NECK/THYROID: no jugular venous di stention, no carotid bruit, thyroid normal HEART: no clicks, gallops, murmurs, or rubs, regular rhythm, S1, S2 normal, no s3, or vascular bruits LUNGS: clear to auscultatio n ABDOMEN: bowel sounds normal, no ascites, no organomegaly, no mass NEUROLOGIC: alert and oriented, cranial nerves 2-12 grossly intact, deep tendon reflexes 2+ symmetrical, motor strength normal upper and lower extremities, sensory exam intact SKIN: no suspicious lesion s, anicteric PERIPHERAL PULSES: normal BREASTS: no masses palpable b ilaterally MUSCULOSKELETAL: extremities unremark able, no clubbing, cyanosis or edema LYMPH NODES: no enlarged lymph no toni,spleen normal RECTAL EXAM: not examined PSYCH: alert, oriented ORAL CAVITY: normal, unremarkable
--- OUTSIDE RECORDS SUMMARY | 2024-01-04 14:56 | XMS_ITS ---
Author Organization Gino Sanders III, MD Address [address] [place] [address] [place] [address] Care Team Providers Care Sales Enablement Specialist Name Role Phone Gino Sanders Primary Care Provider REASON FOR VISIT Rx Request Medications Medication SIG (Take, Route, Fr equency, Duration) Notes Start Date End Date Status Omeprazole 20 MG 1 capsule Orally Onc e a day for 90 days Active Social History Sex Assigned At : Social History Observation Description Sex Assigned At Male Encounters Encounter Location Date Provider Diagnosis Gino Sanders III, MD [address] [place] [address] [place] [address] 12/14/2023 Gino Sanders Plan Of Treatment Medication Medication Name Sig Start Date Stop Date Notes Omeprazole 20 MG 1 capsule Orally Once a day for 90 days Next Appt Details Provider Name:Gino Sanders, 03/14/2024 01:45:00 PM, [address] [place] [address] [place], [phone], Provider Name:Gino Sanders, 09/16/2024 11:00:00 AM, [address] [place] [address] [place], [phone], Progress Notes * EMILIE CLAYDOB: [birth year] (58 yo M)Acc No.[id number]:12/14/2023 Patient:?EMILIE CLAY :1965???Age:58 Y???Sex:Male Address:[address] [place] [address], [place], [address] * Refills? Refill Omeprazole Capsule Delayed Release, 20 MG, Orally, 90 Capsule, 1 capsule, Once a day, 90 days, Refills=3 * true * Date:? Generated for Deanna foote/Uyen/Julio Cesaritting on:?01/04/2024 02:56 PM EST
--- OUTSIDE RECORDS SUMMARY | 2024-01-04 14:57 | XMS_ITS | Patient Health Record ---
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0 11.0-16.0 % Platelet Count 318 160-400 X10*3/uL Mean Platelet Volume 10.2 9.4-12.4 fL Neutrophils Percent Auto 47.4 45-73 % Imm Gran Pct Auto 0.3 0.0-0.4 % Lymphocytes Percent Auto 34.6 20-40 % Monocytes Percent Auto 12.1 2-11 % Eosinophils Percent Auto 4.3 0-4 % Basophils Percent Auto 1.3 0-2 % NRBC Pct Auto 0.0 0.0-0.2 /100WBC Neutrophils Absolute Auto 1.8 2.0-8.3 x10*3/u L Imm Gran Abs Auto 0.01 0.00-0.03 X10*3/uL Lymphocytes Absolute Auto 1.3 1.2-4.9 X10*3/u L Monocytes Absolute Auto 0.5 0.1-1.2 X10*3/uL Eosinophils Absolute Auto 0.2 0.0-0.4 X10*3/u L Basophils Absolute Auto 0.1 0.0-0.2 X10*3/uL NRBC Abs Auto 0.000 0.0-0.012 X10*3/uL Comprehensive [place]. Panel Fa st Reviewed date:10/21/2023 09:56:39 AM Interpretation: Performing Lab:[facility], [address] [place] [phone] Notes/Report: Sodium 139 135-145 mmol/L Potassium 4.6 3.3-5.1 mmol/L Chloride 104 96-108 mmol/L Carbon Dioxide 27 22-29 mmol/L Anion Gap 13 12-20 Blood Urea Nitrogen 20 9-16 mg/dL Creatinine 1.15 0.5-1.4 mg/dL Estimated Glomerular Filt Rate > 60 NOTE: For -Dutch individuals, multiply the result by 1.210. Chronic Kidney Disease: Estimated GFR < 60 mL/min/1.73m2 Severe Kidney Disease: Estimated GFR < 15 mL/min/1.73m2 Glucose Fasting 91 60-99 mg/dL Calcium 9.3 8.4-10.2 mg/dL Bilirubin Total 0.6 0.0-1.0 mg/dL Aspartate Amino Transferase 54 5-37 U/L Alanine Aminotransferase 120 0-40 U/L Total Protein 7.4 6.5-8.0 g/dL Albumin Level 4.3 3.5-5.0 g/dL Alkaline Phosphatase 49 39-117 U/L Lipid Panel Reviewed date:10/21/2023 09:56:39 AM Interpretation: Performing Lab:[facility], [address] [place] [phone] Notes/Report: Triglycerides 119 <150 mg/dL Desirable Triglyceride: less than 150 mg/dL Borderline High Triglyceride 150-199 mg/dL High Triglyceride: 200-499 mg/dL Very High Triglyceride: greater than or equal to 5OO mg/dL Cholesterol 295 <200 mg/dL Desirable Cholesterol: less than 200 mg/dL Borderline High Cholesterol: 200-239 mg/dL High Cholesterol: greater than 239 mg/dL LDL Cholesterol Calculated 255 <100 mg/dL Desirable LDL: less than 100 mg/dL Near Optimal/Above Optimal LDL: 110-129 mg/dL Borderline High LDL: 130-159 mg/dL High LDL: 160-189 mg/dL Very High LDL: greater than or equal to 190 mg/dL HDL Cholesterol 17 >40 mg/dL Desirable HDL: greater than 40 mg/dL Note: This HDL assay may give artificially low results in patients with liver disease. Prostate Specific Antigen Reviewed date:10/21/2023 09:56:39 AM Interpretation: Performing Lab:[facility], [address] [place] [phone] Notes/Report: Prostate Specific Antigen 0.86 <0.05-4.0 ng/mL PSA methodology: Harmon Alinity i Chemiluminescent Microparticle Immunoassay (CMIA) Testosterone, Free/Total Reviewed date:11/08/2023 09:56:41 AM Interpretation: Performing Lab:[facility], [address] [place] [phone] Notes/Report: Testosterone, Total 42 250-1100 ng/dL For additional information, please refer to http://education.[email or web address]/faq/ T[email or web address] 165 (This link is being provided for informational/ educational purposes only.) This test was developed and its analytical performance characteristics have been determined by [facility] [place], [place]. It has not been cleared or approved by the U.S. Food and Drug Administration. This assay has been validated pursuant to the CLIA regulations and is used for clinical purposes. Testosterone, Free 10.5 35.0-155.0 pg/mL This test was developed and its analytical performance characteristics have been determined by [facility] [place], [place]. It has not been cleared or approved by the U.S. Food and Drug Administration. This assay has been validated pursuant to the CLIA regulations and is used for clinical purposes. THIS TEST WAS PERFORMED AT: [email or web address] SONIA AGRAWAL MD,PHD Reason For Referral No Information Medications Medication SIG (Take, Route, Frequency, Duration) [...] HCl 0.2 MG TAKE 1 TABLET BY [facility] TWICE A DAY Active Omeprazole 20 MG 1 capsule Orally Onc e a day for 90 days Active Immunizations Vaccine Route Administration Date Status Comme nts COVID PFIZER Unknown 06/14/2020 Administered COVID PFIZER Unknown 07/05/2020 Administered COVID- 19 Vaccine Unknown 01/05/2021 Administered Influenza, quad Unknown 11/30/2020 Administered Influenza, quad Unknown 11/25/2019 Administered Influenza no Preserv 3 and > Unknown 04/07/2014 Adminis tered Tdap Unknown 10/06/2022 Administered Zoster Unknown 10/06/2022 Administered Social History Tobacco Use: Social History Observation [...] ast year? No Points 0 Interpretation Negative Problems Problem Type SNOMED Code ICD Code Onset Dates Problem Status W/U Status Risk Notes Problem 031587738 Overweight (E66.3) Active confirmed He has gained 6 pounds. His body mass index is 29. He is overweight and we have reviewed his diet and nutrition. He believes the weight gain is muscle mass hated by his consuming red meat and taking androgens. 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 He is attending meetings regularly. I encouraged him to continue these meetings and to have a sponsor. He declined an offer of naltrexone. Problem 554398196 Gastroesophageal reflux disease without esophagitis (K21.9) Active confirmed He does not wak e up at night with reflux. His GERD is well controlled with medication. Problem 93980520 Bilateral inguinal hernia without obstruction or gangrene, recurrence not specified (K40.20) Active confirmed Bilateral herniorrhaphies were done in the past and then revised later on. There is no sign of recurrent hernias today. The scars are old and healed. Problem Hyperlipidaemia (52828857) Hyperlipidemia, unspecified hyperlipidemia type (E78.5) Active confirmed His total cholesterol is 295 which is much higher than usual. He has included a large amount of red meat in his diet. The value will be repeated without eating red meat for 1 week. I have reviewed with him the dietary sources of cholesterol and its potential risks. Problem 672141538 Diverticulitis (K57.92) Active confirmed Clinically he has early diverticulitis and was given a prescription for levofloxacin. Problem 67081102 Reactive depression (F32.9) Active confirmed He does not wis h to take bupropion anymore as he finds it ineffective. I have given him sertraline today. He will return in 21 days for dose adjustment. Problem Benign prostatic hypertrophy without outflow obstruction (006999864) Benign prostatic hyperplasia, unspecified whether lower urinary tract symptoms present (N40.0) Active confirmed He rises from sleep between once and 3 times a night to urinate depending upon fluid ingestion. We discussed lifestyle modification as a means of controlling nocturia. If this is unsuccessful medication will be considered. Problem 33148203 Other closed fracture of distal end of left ulna, sequela (S50.638Y) Active confirmed The arm is functional today. He has recovered from the surgery and will not require additional orthopedic care. Vital Signs Heart Rate 75 /min 11/08/2023 Temperature 97.2 degrees Fahrenheit 11/08/2023 Blood pressure diastolic 82 mm Hg 11/08/2023 Height 71 in 11/08/2023 Blood pressure systolic 129 mm Hg 11/08/2023 Weight 210 lbs 11/08/2023 BMI 29.29 kg/m2 11/08/2023 Encounters Encounter Location Date Provider Diagnosis Gino Sanders III, MD [address] [place] [address] [place] [address] 07/17/2023 Gino Sanders Benign prostatic hyperplasia, unspecified whether lower urinary tract symptoms present N40.0 ; Diverticulitis K57.92 ; Gastroesophageal reflux disease without esophagitis K21.9 ; Overweight E66.3 and Reactive depression F32.9 Gino Sanders III, MD [address] [place] [address] [place] [address] 07/25/2023 Gino Sanders Benign prostatic hyperplasia, unspecified whether lower urinary tract symptoms present N40.0 ; Gastroesophageal reflux disease without esophagitis K21.9 ; Overweight E66.3 ; Bilateral inguinal hernia without obstruction or gangrene, recurrence not specified K40.20 ; Reactive depression F32.9 and Diverticulitis K57.92 Gino Sanders III, MD [address] [place] [address] [place] [address] 09/13/2023 Gino Sanders Benign prostatic hyperplasia, unspecified whether lower urinary tract symptoms present N40.0 ; Gastroesophageal reflux disease without esophagitis K21.9 ; Overweight E66.3 ; Bilateral inguinal hernia without obstruction or gangrene, recurrence not specified K40.20 ; Reactive depression F32.9 and Substance abuse F19.10 Gino Sanders III, MD [address] [place] [address] [place] [address] 11/08/2023 Gino Sanders Benign prostatic hyperplasia, unspecified whether lower urinary tract symptoms present N40.0 ; Hyperlipidemia, unspecified hyperlipidemia type E78.5 ; Overweight E66.3 ; Other closed fracture of distal end of left ulna, sequela S52.692S ; Bilateral inguinal hernia without obstruction or gangrene, recurrence not specified K40.20 ; Reactive depression F32.9 and Substance abuse F19.10 Gino Sanders III, MD [address] [place] [address] [place] [address] 12/14/2023 Gino Sanders Assessments Encounter Date Diagnosis (ICD Code) Assessment Notes T reatment Notes Treatment Clinical Notes 07/17/2023 Diverticulitis (ICD- 10 - K57.92) Clinically he has early diverticulitis and was given a prescription for levofloxacin. 07/17/2023 Benign prostatic hyperplasia, unspecified whether lower urinary tract symptoms present (ICD-10 - N40.0) He rises from sleep between once and 3 times a night to urinate depending upon fluid ingestion. We discussed lifestyle modification as a means of controlling nocturia. 07/25/2023 Gastroesophageal reflux disease without esophagitis (ICD-10 - K21.9) His episodic heartburn is well controlled with [id number] omeprazole and Maalox. He was encouraged not to eat too close to bedtime. 07/25/2023 Benign prostatic hyperplasia, unspecified whether lower urinary [...] GERD is well controlled with medication. 09/13/2023 Benign prostatic hyperplasia, unspecified whether lower [...] of cholesterol and its potential risks. 11/08/2023 Benign prostatic hyperplasia, unspecified whether lower urinary tract symptoms present (ICD-10 - N40.0) He rises from sleep between once and 3 times a night to urinate depending upon fluid ingestion. We discussed lifestyle modification as a means of controlling nocturia. If this is unsuccessful medication will be considered. 07/17/2023 Gastroesophageal reflux disease without esophagitis (ICD-10 - K21.9) His episodic heartburn is well controlled with [id number] omeprazole and Maalox. He was encouraged not to eat too close to bedtime. 07/25/2023 Overweight (ICD-10 - E66.3) He has gained 5 pounds. His body mass index is 29. We reviewed his weight loss strategy. We reviewed his diet and nutrition today. He will stabilize his weight and then lose weight at a rate of one half of a pound per week. 09/13/2023 Overweight (ICD-10 - E66.3) His weight is stable and his body mass index is 28. We have discussed weight reduction strategies and diet and nutrition today. 11/08/2023 Overweight (ICD-10 - E66.3) He has gained 6 pounds. His body mass index is 29. He is overweight and we have reviewed his diet and nutrition. He believes the weight gain is muscle mass hated by his consuming red meat and taking androgens. 07/17/2023 Overweight (ICD-10 - E66.3) He has gained 5 pounds. His body mass index is 29. We reviewed his weight loss strategy. We reviewed his diet and nutrition today. He will stabilize his weight and then lose weight at a rate of one half of a pound per week. 07/25/2023 Bilateral inguinal hernia without obstruction or gangrene, recurrence not specified (ICD-10 - K40.20) Bilateral herniorrhaphies were done in the past and then revised later on. There is no sign of recurrent hernias today. The scars are old and healed. 09/13/2023 Bilateral inguinal hernia without obstruction or gangrene, recurrence not specified (ICD-10 - K40.20) Bilateral herniorrhaphies were done in the past and then revised later on. There is no sign of recurrent hernias today. The scars are old and healed. 11/08/2023 Other closed fractur e of distal end of left ulna, sequela (ICD-10 - S52.692S) The arm is functional today. He has recovered from the surgery and will not require additional orthopedic care. 07/17/2023 Reactive depression (ICD-10 - F32.9) He does not wish to take bupropion anymore as he finds it ineffective. I have given him sertraline today. He will return in 21 days for dose adjustment. 07/25/2023 Reactive depression (ICD-10 - F32.9) He does not wish to take bupropion anymore as he finds it ineffective. I have given him sertraline today. He will return in 21 days for dose adjustment. 09/13/2023 Reactive depression (ICD-10 - F32.9) He does not wish to take bupropion anymore as he finds it ineffective. I have given him sertraline today. He will return in 21 days for dose adjustment. 11/08/2023 Bilateral inguinal hernia without obstruction or gangrene, recurrence not specified (ICD-10 - K40.20) Bilateral herniorrhaphies were done in the past and then revised later on. There is no sign of recurrent hernias today. The scars are old and healed. 07/25/2023 Diverticulitis (ICD- 10 - K57.92) Clinically he has early diverticulitis and was given a prescription for levofloxacin. 09/13/2023 Substance abuse (ICD-10 - F19.10) He has been clean and sober since July 20, 2022. He is attending meetings regularly. I encouraged him to continue these meetings and to have a sponsor. He declined an offer of naltrexone. 11/08/2023 Reactive depression (ICD-10 - F32.9) He [...] an offer of naltrexone. Plan Of Treatment Pending Test Test Name Order Date PROFILE, FASTING (COMPREHENSIVE METABOLI C) 09/13/2023 PROFILE, FASTING (COMPREHENSIVE METABOLI C) 05/11/2020 PROFILE, FASTING (COMPREHENSIVE METABOLI C) 11/08/2023 PROFILE, RANDOM (COMPREHENSIVE METABOLIC ) 03/07/2022 LIPID PANEL 09/13/2023 LIPID PANEL 03/07/2022 LIPID PANEL 05/11/2020 PSA, TOTAL 11/08/2023 PSA, TOTAL 09/13/2023 PSA, TOTAL 03/07/2022 PSA, TOTAL 05/11/2020 CBC w DIFF 05/11/2020 CBC w DIFF 09/13/2023 CBC w DIFF 03/07/2022 CBC WITH AUTO DIFF 11/08/2023 Lipid Panel 11/08/2023 Testosterone, Free/Total 09/13/2023 Testosterone, Total 11/08/2023 Next Appt Details Provider Name:Gino Sanders, 03/14/2024 01:45:00 PM, [address] [place] [address] [address], [place], [address], Provider Name:Gino Sanders, 09/16/2024 11:00:00 AM, [address] [place] [address] [address], [place], [address], Insurance Providers Payer Name Payer Address Payer Phone Subscriber Number Group Number Insured Name Patient Relationship to Insured Coverage Start Date Coverage End Date [facility] [address] [place], [place] [id number] EMILIE CLAY Self - patient is the insured Medical (General) History Medical History History ICD Code GERD fracture left ulna, nonunion with bone g raft May 2012 diverticulitis age 40 benign prostatic hypertrophy bilateral inguinal hernias, repaired overweight Substance abuse Surgical History Surgery Date(Month/Year) left ulna repair 2020 colonoscopy with upper endoscopy surgery left hand 2000 repair nonunion fractured ulna with bone graft 04/2019 Bilateral Inguinal Herniorraphies revise d 15 years ago Bilateral Inguinal Herniorraphy 6 years ago
== END 2024-01-04 14:12 | disposition home or self-care (01) ==
PROVIDERS: PCP Internal Medicine Medical Oncology; Visit Provider Internal Medicine Gastroenterology
PROC: 0DJD8ZZ Inspection of Lower Intestinal Tract, Via Natural or Artificial Opening Endoscopic (ICD-10-PCS; CPT 45378; principal; 2024-01-04 13:00)
DX: Z12.11 Encounter for screening for malignant neoplasm of colon (principal); K63.5 Polyp of colon; K62.1 Rectal polyp; K57.30 Diverticulosis of large intestine without perforation or abscess without bleeding; K64.8 Other hemorrhoids; F11.10 Opioid abuse, uncomplicated; Z87.891 Personal history of nicotine dependence
CPT/HCPCS: 45385; 45380; 88305; J2003; J2704

== ENCOUNTER → 2024-01-04 11:00 | Outpatient (BNV) | payer BC, SELFPAY | PROVIDERS: PCP Internal Medicine Medical Oncology; Visit Provider Internal Medicine Gastroenterology | DX: Z12.11 Encounter for screening for malignant neoplasm of colon (principal); K63.5 Polyp of colon; K62.1 Rectal polyp; K57.90 Diverticulosis of intestine, part unspecified, without perforation or abscess without bleeding; K64.8 Other hemorrhoids | CPT/HCPCS: 45380; 45385 ==

== ENCOUNTER 2024-11-05 10:01 | Outpatient (AMB) | payer MEDICAID, SELFPAY ==
--- OUTSIDE RECORDS SUMMARY | 2024-03-14 10:00 | XMS_ITS ---
Author Organization Gino Sanders III, MD Address [address] [place] [address] DR MERINO Francesca ED[place]ARD [place] [id number] Care Team Providers Care Machine Feller Name Role Phone Dr. Gino Sanders III Primary Care Provider [phone] Allergies Allergen (clinical drug ingredient) Drug/Non Drug Allergy documented on EMR Reaction Allergy Type Onset Date Status No Known Drug Allergy Unknown Drug Allergy Active REASON FOR VISIT no labs done, repaired bilateral inguinal hernias, Benign prostatic hypertrophy, GERD Medications Medication SIG (Take, Route, Frequency, Duration) Notes Start Date End Date Status Tadalafil 20 MG 1 tablet as needed O rally Once a day for 6 days 03/14/2024 05/25/2024 Active cloNIDine HCl 0.2 MG TAKE 1 TABLET BY [facility] TWICE A DAY Active Omeprazole 20 MG 1 capsule Orally Onc e a day Active Nicotine Step 3 7 MG/24HR 1 patch to ski n Transdermal Once a day 08/25/2022 Active Tamsulosin HCl 0.4 MG 1 capsule Orally O nce a day 09/13/2023 Active Nicotine 21 MG/24HR 1 patch to skin Transdermal Once a day 08/01/2022 Active Nicotine Step 2 14 MG/24HR 1 patch to skin Transdermal Once a day 08/25/2022 Active Social History Tobacco Use: Social History Observation Description Date Details (start date - stop date) Never Smoker NA - NA Sex Assigned At : Social History Observation Description Sex Assigned At Male Tobacco Use/Smoking Question Answer Notes Patient is a nonsmoker Additional Findings: Tobacco User Chews tobacco Additional Findings: Tobacco Non-User Aggressive non-smoker Problems Problem Type SNOMED Code ICD Code Onset Dates Problem Status W/U Status Risk Notes Problem [id number] Primary erectile dysfunction (N52.9) Active confirmed He was given a trial of tadalafil 20 mg, instructions on its use and what side effects to expect. Vital Signs Temperature 98.6 degrees Fahrenheit 03/14/19 25 Blood pressure systolic 147 mm Hg 03/14/19 25 Blood pressure diastolic 80 mm Hg 025 Heart Rate 67 /min 03/14/2024 Height 71 in 03/14/2024 Weight 204 lbs 03/14/2024 BMI 28.45 kg/m2 03/14/2024 Encounters Encounter Location Date Provider Diagnosis Gino Sanders III, MD [address] [place] [address] [place] [address] 03/14/2024 Gino Sanders Benign prostatic hyperplasia, unspecified whether lower urinary tract symptoms present N40.0 ; Primary erectile dysfunction N52.9 ; Gastroesophageal reflux disease without esophagitis K21.9 ; Overweight E66.3 ; Bilateral inguinal hernia without obstruction or gangrene, recurrence not specified K40.20 and Substance abuse F19.10 Assessments Encounter Date Diagnosis (ICD Code) Assessment Notes T reatment Notes Treatment Clinical Notes 03/14/2024 Benign prostatic hyperplasia, unspecified whether lower urinary tract symptoms present (ICD-10 - N40.0) He rises from sleep between once and 3 times a night to urinate depending upon fluid ingestion. We discussed lifestyle modification as a means of controlling nocturia. If this is unsuccessful medication will be considered. 03/14/2024 Primary erectile dysfunction (ICD-10 - N52.9) He was given a trial of tadalafil 20 mg, instructions on its use and what side effects to expect. 03/14/2024 Gastroesophageal reflux disease without esophagitis (ICD-10 - K21.9) He does not wake up at night with reflux. His GERD is well controlled with medication. 03/14/2024 Overweight (ICD-10 - E66.3) He has lost 6 pounds. His body mass index is 28. He is overweight and we have reviewed his diet and nutrition. He believes the weight gain is muscle mass hated by his consuming red meat and taking androgens. 03/14/2024 Bilateral inguinal hernia without obstruction or gangrene, recurrence not specified (ICD-10 - K40.20) Bilateral herniorrhaphies were done in the past and then revised later on. There is no sign of recurrent hernias today. The scars are old and healed. 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 He is attending meetings regularly. I encouraged him to continue these meetings and to have a sponsor. He declined an offer of naltrexone. Plan Of Treatment Medication Medication Name Sig Start Date Stop Date Notes Tadalafil 20 MG 1 tablet as needed O rally Once a day for 6 days 03/14/2024 05/25/2024 cloNIDine HCl 0.2 MG TAKE 1 TABLET BY [facility] TWICE A DAY Omeprazole 20 MG 1 capsule Orally Once a day Nicotine Step 3 7 MG/24HR 1 patch to ski n Transdermal Once a day 08/25/2022 Tamsulosin HCl 0.4 MG 1 capsule Orally Once a day 09/13/19 Nicotine 21 MG/24HR 1 patch to skin Johnston sdermal Once a day 08/01/2022 Nicotine Step 2 14 MG/24HR 1 patch to sk in Transdermal Once a day 08/25/2022 Next Appt Details Follow Up: 3 Months, 12 week s, Reason: OV, Follow up on the patient's erectile dysfunction and possible hiatal hernia Provider Name:Gino Sanders , 11/14/2024 02:30:00 PM, [address] [place] [address] [address], [place], [address], Provider Name:Gino Sanders , 02/13/2025 02:45:00 PM, [address] [place] [address] [address], [place] [address], Progress Notes * DANNA EMILIEDOB: 6 (58 yo M)Acc No.[id number]:03/14/2024 Progress Notes Patient: EMILIE COPPOLA Provider: Viviana Sanders MD :1965 A ge:58 Y S ex:Male Date:03/14/2024 Address:[address] [place], [place] [id number] Subjective: * Chief Complaints: * N o labs doneRepaired bilateral inguinal herniasBenign prostatic hypertrophyGERD * HPI: C OVID-19 Screening: Questions H ave you had any new onset fever, chills, cough, congestion, sore throat, shortness of breath, muscle aches? N o * : The patient, a 58-year-old male, presented with concerns about erectile dysfunction, which he believes may be related to his age and possibly his testosterone levels. He reported that he had previously been taking steroids and had stopped, which coincided with a decrease in his motivation to go to the gym. He also mentioned having a nicotine addiction and a sugar addiction, which he believes may be contributing to his need to urinate during the night. The patient also reported a possible hiatal hernia, describing a strain above his beltline that comes and goes. He also mentioned a history of heartburn. He was unable to have the ordered blood work done prior to this visit. He will be done next week. We will need by telephone if there are any significant abnormalities. * ROS: G eneral/Constitutional: pain B ilateral inguinal ligaments. C hills d enies. F atigue a dmits. F ever d enies. E NT: Decreased hearing d enies. R espiratory: Cough d enies. C ardiovascular: Chest pain with exertion d enies. D yspnea on exertion?denies. S hortness of breath d enies. G astrointestinal: Constipation o ccasional. D ecreased appetite d enies. D iarrhea d enies. H eartburn o ccasional. N ausea d enies. R ectal bleeding d enies. V omiting d enies. H ematology: bruising d enies. p etechiae d enies. S wollen glands n one have been noted. G enitourinary: Frequent urination o nce a night. M usculoskeletal: Muscle aches d enies. P ainful joints d enies. S ciatica d enies. W eakness d enies. S kin: Itching d enies. R mercedes d enies. S kin lesion(s)?denies. N eurologic: Difficulty speaking d enies. D izziness d enies.?Headache d enies. L ow back pain d enies. P sychiatric: Depressed mood w hich is mild. * Medical History: * Surgical History: B ilateral Inguinal Herniorraphy 6 years agoBilateral Inguinal Herniorraphies revised 15 years agorepair nonunion fractured ulna with bone graft 04/2019surgery left hand 2000colonoscopy with upper endoscopy left ulna repair 2020No history * Hospitalization/Major Diagno stic Procedure: N o history * Family History: F ather: 64 yrs, Alcoholism. M other: alive 83 yrs, dementia, good health. S iblings: alive. P aternal Grand Father: , bone cancer. M aternal Grand Mother: , alzheimer's dementia. 4 brother(s) , 2 sister(s) . . There is no family history of inherited [...] use disorder or mental illness. * Social History: T obacco Use: T obacco Use/Smoking P marcie is a n onsmoker A dditional Findings: Tobacco User C hews tobacco A dditional Findings: Tobacco Non-User A ggressive non-smoker Alanna rubio was born in [facility]. He is not a [employer]. 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 He is single with 2 children who live in [place]. They are alive and well. * Medications: T akingNicotine 21 MG/24HR Patch 24 Hour 1 patch to skin Transdermal Once a day Nicotine Step 2 14 MG/24HR Patch 24 Hour 1 patch to skin Transdermal Once a day Nicotine Step 3 7 MG/24HR Patch 24 Hour 1 patch to skin Transdermal Once a day Tamsulosin HCl 0.4 MG Capsule 1 capsule Orally Once a day Omeprazole 20 MG Capsule Delayed Release 1 capsule Orally Once a day cloNIDine HCl 0.2 MG Tablet TAKE 1 TABLET BY MOUTH TWICE A DAY Medication List reviewed and reconciled with the patientTaking Nicotine 21 MG/24HR Patch 24 Hour 1 patch to skin Transdermal Once a day Taking Nicotine Step 2 14 MG/24HR Patch 24 Hour 1 patch to skin Transdermal Once a day Taking Nicotine Step 3 7 MG/24HR Patch 24 Hour 1 patch to skin Transdermal Once a day Taking Tamsulosin HCl 0.4 MG Capsule 1 capsule Orally Once a day Taking Omeprazole 20 MG Capsule Delayed Release 1 capsule Orally Once a day Taking cloNIDine HCl 0.2 MG Tablet TAKE 1 TABLET BY MOUTH TWICE A DAY Medication List reviewed and reconciled with the patient * Allergies: N o Known Drug Allergyno[Allergies Verified] Objective: * Vitals: H t: 71, Wt: 204, BMI:28.45, BP: 147/80, HR: 67, Temp: 98.6, Ht-cm: 180.34, Wt-k.53. * P ast Orders: L ab:Pathology (Order Date - 01/04/2024) (Collection Date & Time - 01/04/2024 12:59 PM) * Examination: G eneral Examination: GENERAL APPEARANCE: p leasant, well nourished, well developed, in no acute distress, calm and relaxed, overweight. HEAD: a traumatic, normocephalic. EYES: e natalie, perrla, anicteric, conjugate. EARS: n ormal. NOSE: s eptum intact. ORAL CAVITY: n ormal, unremarkable. NECK/THYROID: n o jugular venous distention, no carotid bruit, thyroid normal. LYMPH NODES: n o enlarged lymph nodes,spleen normal. SKIN: n o suspicious lesions, anicteric. HEART: n o clicks, gallops, murmurs, or rubs, regular rhythm, S1, S2 normal, no s3, or vascular bruits. LUNGS: c lear to auscultation . BREASTS: no masses palpable bilaterally. ABDOMEN: b owel sounds normal, no ascites, no organomegaly, no mass, overweight. RECTAL EXAM: n ot examined. MUSCULOSKELETAL: e xtremities unremarkable, no clubbing, cyanosis or edema. PERIPHERAL PULSES: n ormal. NEUROLOGIC: a lert and oriented, cranial nerves 2-12 grossly intact, deep tendon reflexes 2+ symmetrical, motor strength normal upper and lower extremities, sensory exam intact. PSYCH: a lert, oriented. Assessment: * Assessment: 1. P rimary erectile dysfunction - N52.9 (Primary) N otes :He was given a trial of tadalafil 20 mg, instructions on its use and what side effects to expect. 2 . B enign prostatic hyperplasia, unspecified whether lower urinary tract symptoms present - N40.0 N otes :He rises from sleep between once and 3 times a night to urinate depending upon fluid ingestion. We discussed lifestyle modification as a means of controlling nocturia. If this is unsuccessful medication will be considered. 3 . G astroesophageal reflux disease without esophagitis - K21.9 ?Notes :He does not wake up at night with reflux. His GERD is well controlled with medication. 4 . O verweight - E66.3 N otes :He has lost 6 pounds. His body mass index is 28. He is overweight and we have reviewed his diet and nutrition. He believes the weight gain is muscle mass hated by his consuming red meat and taking androgens. 5 . B ilateral inguinal hernia without obstruction or gangrene, recurrence not specified - K40.20 N otes :Bilateral herniorrhaphies were done in the past and then revised later on. There is no sign of recurrent hernias today. The scars are old and healed. 6 . S ubstance abuse - F19.10 N otes :He has been clean and sober since July 20, 2022. He is attending meetings regularly. I encouraged him to continue these meetings and to have a sponsor. He declined an offer of naltrexone. Plan: * Treatment: 2. O thers Continue cloNIDine HCl Tablet, 0.2 MG, TAKE 1 TABLET BY MOUTH TWICE A DAY; C ontinue Omeprazole Capsule Delayed Release, 20 MG, 1 capsule, Orally, Once a day; C ontinue Nicotine Patch 24 Hour, 21 MG/24HR, 1 patch to skin, Transdermal, Once a day; C ontinue Nicotine Step 2 Patch 24 Hour, 14 MG/24HR, 1 patch to skin, Transdermal, Once a day; C ontinue Nicotine Step 3 Patch 24 Hour, 7 MG/24HR, 1 patch to skin, Transdermal, Once a day. * Procedure Codes: * Preventive Medicine: Counseling: C are goal follow-up plan: Counseling for abnormal BMI given Y es Above Normal BMI Follow-up D ietary management education, guidance, and counseling, Dietary needs education, Exercise promotion: strength training, Exercise promotion: stretching, Feeding regime, Giving encouragement to exercise, Lifestyle education regarding diet, Nutrition / feeding management, Nutrition therapy, Prescribed activity/exercise education, Prescribed diet education, Prescribed dietary intake, Special diet education, Weight monitoring , Intervention, Order not done: Medical or Other reason not done * Follow Up: 3 Months, 12 weeks (Reason: OV, Follow up on the patient's erectile dysfunction and possible hiatal hernia) * Images: * Sign off status: Completed true * Provider: Viviana Sanders MD Date: 0 03/14/2024 Generated for Deanna foote/Uyen/Zackary on: 0 11/05/2024 12:14 PM EDT History and Physical Notes * HPI (History of Present Illness) Category Sub-Category Detail Notes COVID-19 Screening Questions Have you had any new onset fever, chills, cough, congestion, sore throat, shortness of breath, muscle aches?: No Examination Category Sub-Category Detail Notes General Examination GENERAL APPEARANCE: pleasant , well nourished, well developed, in no acute distress, calm and relaxed, overweight HEAD: atraumatic, normocep halic EYES: eomi, perrla, anicte ambrose, conjugate EARS: normal NOSE: septum intact NECK/THYROID: no jugular venous di stention, no carotid bruit, thyroid normal HEART: no clicks, gallops, murmurs, or rubs, regular rhythm, S1, S2 normal, no s3, or vascular bruits LUNGS: clear to auscultatio n ABDOMEN: bowel sounds normal, no ascites, no organomegaly, no mass, overweight NEUROLOGIC: alert and oriented, cranial nerves 2-12 [...]
--- OUTSIDE RECORDS SUMMARY | 2024-06-11 09:45 | XMS_ITS ---
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 Gino Sanders III Primary Care Provider Allergies Allergen (clinical drug ingredient) Drug/Non Drug Allergy documented on EMR Reaction Allergy Type Onset Date Status No Known Drug Allergy Unknown Drug Allergy Active REASON FOR VISIT BPH, gerd, Depression Medications Medication SIG (Take, Route, Frequency, Duration) Notes Start Date End Date Status Tamsulosin HCl 0.4 MG 1 capsule Orally O nce a day 09/13/2023 Active Nicotine 21 MG/24HR 1 patch to skin Transdermal Once a day 08/01/2022 Active Omeprazole 20 MG 1 capsule Orally Onc e a day Active Nicotine Step 3 7 MG/24HR 1 patch to ski n Transdermal Once a day 08/25/2022 Active Nicotine Step 2 14 MG/24HR 1 patch to sk in Transdermal Once a day 08/25/2022 Active cloNIDine HCl 0.2 MG TAKE 1 TABLET BY MO [facility] TWICE A DAY Active Social History Tobacco Use: Social History Observation Description Date Details (start date - stop date) Never Smoker NA - NA Sex Assigned At : Social History Observation Description Sex Assigned At Male Tobacco Use/Smoking Question Answer Notes Patient is a nonsmoker Additional Findings: Tobacco User Chews tobacco Additional Findings: Tobacco Non-User Aggressive non-smoker Vital Signs Temperature 98.5 degrees Fahrenheit 06/12/19 25 Blood pressure systolic 135 mm Hg 04/30/20 25 Blood pressure diastolic 77 mm Hg 025 Heart Rate 85 /min 06/11/2024 Height 71 in 06/11/2024 Weight 195 lbs 06/11/2024 BMI 27.19 kg/m2 06/11/2024 Encounters Encounter Location Date Provider Diagnosis Gino Sanders III, MD [address] [place] [address] DR [place], [place] [phone] 06/11/2024 Gino Sanders Benign prostatic hyperplasia, unspecified whether lower urinary tract symptoms present N40.0 ; Reactive depression F32.9 ; Overweight E66.3 ; Hyperlipidemia, unspecified hyperlipidemia type E78.5 ; Gastroesophageal reflux disease without esophagitis K21.9 ; Other closed fracture of distal end of left ulna, sequela S52.692S and Bilateral inguinal hernia without obstruction or gangrene, recurrence not specified K40.20 Assessments Encounter Date Diagnosis (ICD Code) Assessment Notes T reatment Notes Treatment Clinical Notes 06/11/2024 Benign prostatic hyperplasia, unspecified whether lower urinary tract symptoms present (ICD-10 - N40.0) He rises from sleep between once and 3 times a night to urinate depending upon fluid ingestion. We discussed lifestyle modification as a means of controlling nocturia. If this is unsuccessful medication will be considered. 06/11/2024 Reactive depression (ICD-10 - F32.9) He does not wish to take bupropion anymore as he finds it ineffective. I have given him sertraline today. He will return in 21 days for dose adjustment. 06/11/2024 Overweight (ICD-10 - E66.3) He has lost 9 pounds. His body mass index is 27. He declined my offer of an antidepressant. I have referred back to health evaluation. They have been prescribing his medications. 06/11/2024 Hyperlipidemia, unspecified hyperlipidemia type (ICD-10 - E78.5) He is going to have the comprehensive blood work within the next week. 06/11/2024 Gastroesophageal reflux disease without esophagitis (ICD-10 - K21.9) He does not wake up at night with reflux. His GERD is well controlled with medication. 06/11/2024 Other closed fractur e of distal end of left ulna, sequela (ICD-10 - S52.692S) The arm is functional today. He has recovered from the surgery and will not require additional orthopedic care. 06/11/2024 Bilateral inguinal hernia without obstruction or gangrene, recurrence not specified (ICD-10 - K40.20) Bilateral herniorrhaphies were done in the past and then revised later on. There is no sign of recurrent hernias today. The scars are old and healed. Plan Of Treatment Medication Medication Name Sig Start Date Stop Date Notes Tamsulosin HCl 0.4 MG 1 capsule Orally Once a day 09/13/19 Nicotine 21 MG/24HR 1 patch to skin Johnston sdermal Once a day 08/01/2022 Omeprazole 20 MG 1 capsule Orally Once a day Nicotine Step 3 7 MG/24HR 1 patch to ski n Transdermal Once a day 08/25/2022 Nicotine Step 2 14 MG/24HR 1 patch to sk in Transdermal Once a day 08/25/2022 cloNIDine HCl 0.2 MG TAKE 1 TABLET BY [facility] TWICE A DAY Pending Test Test Name Order Date PROFILE, FASTING (COMPREHENSIVE METABOLI C) 06/11/2024 CBC w DIFF 06/11/2024 Lipid Panel 06/11/2024 Next Appt Details Follow Up: As Scheduled, Megan son: Annual Exam Provider Name:Gino Sanders , 11/14/2024 02:30:00 PM, [address] [place] [address] [address], [place], [phone], Provider Name:Gino Sanders , 02/13/2025 02:45:00 PM, [address] [place] [address] [address], [place], [phone], Progress Notes * EMILIE CLAYDOB: 6 (59 yo M)Acc No.[id number]:06/11/2024 Progress Notes Patient: EMILIE COPPOLA Provider: Viviana Sanders MD :1965 A ge:59 Y S ex:Male Date:06/11/2024 Address:[address] [place] [id number] Subjective: * Chief Complaints: * B PHGerdDepression * HPI: C OVID-19 Screening: He returns to the office who manage his medical issues and depression. He says he is not using any illegal drugs. He is trying to lose weight and consume a healthy diet. His depression is slightly worse. He has had some trouble at work and is afraid he may lose his job. He is chewing tobacco and sleeping is not smoking cigarettes. He rises once a night to urinate. He has not been able to get his comprehensive blood work but will do so later this week and then call me for the results.He has lost 9 pounds since his last visit. He believes this is due to stress work and depression. He says he is a poor appetite. Questions H ave you had any new onset fever, chills, cough, congestion, sore throat, shortness of breath, muscle aches? N o * ROS: G eneral/Constitutional: pain o nly normal aches and pains. C hills d enies.?Fatigue a dmits. F ever d enies. E NT: Decreased hearing d enies. R espiratory: Cough d enies. C ardiovascular: Chest pain with exertion d enies. D yspnea on exertion?denies. S hortness of breath d enies. G astrointestinal: Constipation o ccasional. D ecreased appetite d enies. D iarrhea d enies. H eartburn d enies. N ausea d enies. R ectal bleeding [...] P sychiatric: Depressed mood w hich is moderate. * Medical History: * Surgical History: B ilateral Inguinal Herniorraphy 6 years agoBilateral Inguinal Herniorraphies revised 15 years agorepair nonunion fractured ulna with bone graft 04/2019surgery left hand 2001colonoscopy with upper endoscopy left ulna repair 2020No [...] History: T obacco Use: T obacco Use/Smoking Jadyn jack is a n onsmoker A dditional Findings: Tobacco User C hews tobacco A dditional Findings: Tobacco Non-User A ggressive non-smoker Alanna rubio was born in [facility]. He is not a [employer]. 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 He is single with 2 children who live in [place]. They are alive and well. * Medications: T akingcloNIDine HCl 0.2 MG Tablet TAKE 1 TABLET BY MOUTH TWICE A DAY Omeprazole 20 MG Capsule Delayed Release 1 capsule Orally Once a day Nicotine 21 MG/24HR Patch 24 Hour 1 patch to skin Transdermal Once a day Nicotine Step 2 14 MG/24HR Patch 24 Hour 1 patch to skin Transdermal Once a day Nicotine Step 3 7 MG/24HR Patch 24 Hour 1 patch to skin Transdermal Once a day Tamsulosin HCl 0.4 MG Capsule 1 capsule Orally Once a day Medication List reviewed and reconciled with the patientTaking cloNIDine HCl 0.2 MG Tablet TAKE 1 TABLET BY MOUTH TWICE A DAY Taking Omeprazole 20 MG Capsule Delayed Release 1 capsule Orally Once a day Taking Nicotine 21 MG/24HR Patch 24 Hour 1 patch to skin Transdermal Once a day Taking Nicotine Step 2 14 MG/24HR Patch 24 Hour 1 patch to skin Transdermal Once a day Taking Nicotine Step 3 7 MG/24HR Patch 24 Hour 1 patch to skin Transdermal Once a day Taking Tamsulosin HCl 0.4 MG Capsule 1 capsule Orally Once a day Medication List reviewed and reconciled with the patient * Allergies: N o Known Drug Allergyno[Allergies Verified] Objective: * Vitals: H t: 71, Wt: 195, BMI:27.19, BP: 135/77, HR: 85, Temp: 98.5, Ht-cm: 180.34, Wt-k.45. * Examination: G eneral Examination: GENERAL APPEARANCE: p leasant, well nourished, well developed, in no acute distress, calm and relaxed, overweight, man. HEAD: a traumatic, normocephalic. EYES: e natalie, [...] normal, no s3, or vascular bruits. LUNGS: , diminished breath sounds throughout, good air movement. BREASTS: no masses palpable bilaterally. ABDOMEN: b owel sounds normal, no ascites, no organomegaly, no mass, overweight. RECTAL EXAM: n ot examined. MUSCULOSKELETAL: e xtremities unremarkable, no clubbing, cyanosis or edema. PERIPHERAL PULSES: n ormal. NEUROLOGIC: a lert and oriented, cranial nerves 2-12 grossly intact, deep tendon reflexes 2+ symmetrical, motor strength normal upper and lower extremities, sensory exam intact. PSYCH: a lert, oriented, anxious appearing, speech diminished output, volume, mood depressed. Assessment: * Assessment: 1. R eactive depression - F32.9 (Primary) N otes :He does not wish to take bupropion anymore as he finds it ineffective. I have given him sertraline today. He will return in 21 days for dose adjustment. 2 . B enign prostatic hyperplasia, unspecified whether lower urinary tract symptoms present - N40.0 N otes :He rises from sleep between once and 3 times a night to urinate depending upon fluid ingestion. We discussed lifestyle modification as a means of controlling nocturia. If this is unsuccessful medication will be considered. 3 . O verweight - E66.3 N otes :He has lost 9 pounds. His body mass index is 27. He declined my offer of an antidepressant. I have referred back to health evaluation. They have been prescribing his medications. 4 . H yperlipidemia, unspecified hyperlipidemia type - E78.5 N otes :He is going to have the comprehensive blood work within the next week. 5 . G astroesophageal reflux disease without esophagitis - K21.9 ?Notes :He does not wake up at night with reflux. His GERD is well controlled with medication. 6 . O ther closed fracture of distal end of left ulna, sequela - S52.692S N otes :The arm is functional today. He has recovered from the surgery and will not require additional orthopedic care. 7 . B ilateral inguinal hernia without obstruction or gangrene, recurrence not specified - K40.20 N otes :Bilateral herniorrhaphies were done in the past and then revised later on. There is no sign of recurrent hernias today. The scars are old and healed. Plan: * Treatment: 2. O verweight L AB: PROFILE, FASTING (COMPREHENSIVE METABOLIC) L AB: CBC w DIFF L AB: Lipid Panel 3. H yperlipidemia, unspecified hyperlipidemia type L AB: PROFILE, FASTING (COMPREHENSIVE METABOLIC) L AB: CBC w DIFF L AB: Lipid Panel 4. O thers Continue cloNIDine HCl Tablet, 0.2 [...] management education, guidance, and counseling, Dietary needs education * Follow Up: A s Scheduled (Reason: Annual Exam) * Images: * Sign off status: Completed true * Provider: Viviana Sanders MD Date: 0 06/11/2024 Generated for Bakarii dary/Uyen/eTransmitting on: 0 11/05/2024 12:14 PM EDT History and Physical Notes * HPI (History of Present Illness) Category Sub-Category Detail Notes COVID-19 Screening Questions Have you had any new onset fever, chills, cough, congestion, sore throat, shortness of breath, muscle aches?: No Examination Category Sub-Category Detail Notes General Examination GENERAL APPEARANCE: pleasant , well nourished, well developed, in no acute distress, calm and relaxed, overweight, man HEAD: atraumatic, normocep halic EYES: eomi, perrla, anicte ambrose, conjugate EARS: normal NOSE: septum intact NECK/THYROID: no jugular venous di stention, no carotid bruit, thyroid normal HEART: no clicks, gallops, murmurs, or rubs, regular rhythm, S1, S2 normal, no s3, or vascular bruits LUNGS: , diminished breath sounds throughout, good air movement ABDOMEN: bowel sounds normal, no ascites, no [...] normal RECTAL EXAM: not examined PSYCH: alert, oriented, anx ious appearing, speech diminished output, volume, mood depressed ORAL CAVITY: normal, unremarkable
--- OUTSIDE RECORDS SUMMARY | 2024-09-16 07:00 | XMS_ITS ---
Author Organization Gino Sanders III, MD Address [address] [place] [address] [place] [address] Care Team Providers Care Laboratory Administrative Director Name Role Phone Dr. Gino Sanders III Primary Care Provider Allergies Allergen (clinical drug ingredient) Drug/Non Drug Allergy documented on EMR Reaction Allergy Type Onset Date Status No Known Drug Allergy Unknown Drug Allergy Active REASON FOR VISIT Annual Exam Medications Medication SIG (Take, Route, Frequency, Duration) Notes Start Date End Date Status cloNIDine HCl 0.2 MG TAKE 1 TABLET BY MO [facility] TWICE A DAY Active Omeprazole 20 MG 1 capsule Orally Onc e a day Active Nicotine 21 MG/24HR 1 patch to skin Transdermal Once a day 08/01/2022 Active Nicotine Step 2 14 MG/24HR 1 patch to sk in Transdermal Once a day 08/25/2022 Active Nicotine Step 3 7 MG/24HR 1 patch to ski n Transdermal Once a day 08/25/2022 Active Tamsulosin HCl 0.4 MG TAKE 1 CAPSULE BY MOUTH EVERY DAY FOR 30 DAYS Active Social History Tobacco Use: Social History Observation Description Date Details (start date - stop date) Never Smoker NA - NA Sex Assigned At : Social History Observation Description Sex Assigned At Male Tobacco Use/Smoking Question Answer Notes Patient is a nonsmoker Additional Findings: Tobacco User Chews tobacco Additional Findings: Tobacco Non-User Aggressive non-smoker Encounters Encounter Location Date Provider Diagnosis Gino Sanders III, MD [address] [place] [address] [place] [phone] 09/16/2024 Gino Sanders Benign prostatic hyperplasia, unspecified whether lower urinary tract symptoms present N40.0 Assessments Encounter Date Diagnosis (ICD Code) Assessment Notes Treat ment Notes Treatment Clinical Notes 09/16/2024 Benign prostatic hyperplasia, unspecified whether lower urinary tract symptoms present (ICD-10 - N40.0) Plan Of Treatment Medication Medication Name Sig Start Date Stop Date Notes cloNIDine HCl 0.2 MG TAKE 1 TABLET BY MO [facility] TWICE A DAY Omeprazole 20 MG 1 capsule Orally Once a day Nicotine 21 MG/24HR 1 patch to skin Johnston sdermal Once a day 08/01/2022 Nicotine Step 2 14 MG/24HR 1 patch to sk in Transdermal Once a day 08/25/2022 Nicotine Step 3 7 MG/24HR 1 patch to ski n Transdermal Once a day 08/25/2022 Tamsulosin HCl 0.4 MG TAKE 1 CAPSULE BY MOUTH EVERY DAY FOR 30 DAYS Next Appt Details Provider Name:Gino Yuri Marilyn , 11/14/2024 02:30:00 PM, [address] [place] [address] [address], [place], [phone], Provider Name:Gino Sanders , 02/13/2025 02:45:00 PM, [address] [place] [address] [address], [place], [phone], Progress Notes * EMILIE CLAYDOB: 6 (59 yo M)Acc No.[id number]:09/16/2024 Progress Notes Patient: EMILIE COPPOLA Provider: Viviana Sanders MD :1965 A ge:59 Y S ex:Male Date:09/16/2024 Address:[address] [place] [id number] Subjective: * Chief Complaints: * 1 . Annual Exam. * HPI: C OVID-19 Screening: Questions H [...] of breath d enies. G astrointestinal: Constipation d enies. D ecreased appetite d enies.?Diarrhea d enies. H eartburn d enies. N ausea d enies. R ectal bleeding?denies. V omiting d enies. H ematology: bruising d enies. p etechiae d enies. S wollen glands n one have been noted. G enitourinary: Frequent urination d enies. M usculoskeletal: Muscle aches d enies. P ainful joints d enies. S ciatica d enies. W eakness d enies. S kin: Itching d enies. R mercedes d enies. S kin lesion(s)?denies. N eurologic: Difficulty speaking d enies. D izziness d enies.?Headache d enies. L ow back pain d enies. P sychiatric: Depressed mood d enies. 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 * Hospitalization/Major Diagno stic Procedure: N o history . * Family History: F ather: 64 yrs, [...] ggressive non-smoker Alanna rubio was born in [facility]. He is not a Synagogue. 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 He is single with 2 children who live in [place]. They are alive and well. * Medications: T aking cloNIDine HCl 0.2 MG Tablet TAKE 1 TABLET BY MOUTH TWICE A DAY , Taking Omeprazole 20 MG Capsule Delayed Release 1 capsule Orally Once a day , Taking Nicotine 21 MG/24HR Patch 24 Hour 1 patch to skin Transdermal Once a day , Taking Nicotine Step 2 14 MG/24HR Patch 24 Hour 1 patch to skin Transdermal Once a day , Taking Nicotine Step 3 7 MG/24HR Patch 24 Hour 1 patch to skin Transdermal Once a day , Taking Tamsulosin HCl 0.4 MG Capsule TAKE 1 CAPSULE BY MOUTH EVERY DAY FOR 30 DAYS , Medication List reviewed and reconciled with the patient * Allergies: N o Known Drug Allergy. Objective: * Vitals: * Examination: G eneral Examination: GENERAL APPEARANCE: p leasant, well nourished, well developed, in no acute distress, calm and relaxed. HEAD: a traumatic, normocephalic. EYES: e natalie, [...] sounds normal, no ascites, no organomegaly, no mass. RECTAL EXAM: n ot examined. MUSCULOSKELETAL: e xtremities unremarkable, no clubbing, cyanosis or edema. PERIPHERAL PULSES: n ormal. NEUROLOGIC: a lert and oriented, cranial nerves 2-12 grossly intact, deep tendon reflexes 2+ symmetrical, motor strength normal upper and lower extremities, sensory exam intact. PSYCH: a lert, oriented. Assessment: * Assessment: 1. B enign prostatic hyperplasia, unspecified whether lower urinary tract symptoms present - N40.0 Plan: * Treatment: 2. O thers Continue [...] to skin, Transdermal, Once a day. * Images: * The named appointment provid er may or may not be the originator of this progress note, and it is not deemed complete until electronically signed by the appointment provider. Sign off status: Pending * Provider: Viviana Sanders MD Date: 0 09/16/2024 Generated for Deanna foote/Uyen/Julio Cesaritting on: 0 11/05/2024 12:14 PM EDT History [...]
--- OUTSIDE RECORDS SUMMARY | 2024-10-10 13:00 | XMS_ITS ---
Author Organization Gino Sanders III, MD Address [address] [place] [address] [place] [address] Care Team Providers Care Commercial Finance Manager Name Role Phone Dr. Gino Sanders III Primary Care Provider Allergies Allergen (clinical drug ingredient) Drug/Non Drug Allergy documented on EMR Reaction Allergy Type Onset Date Status No Known Drug Allergy Unknown Drug Allergy Active REASON FOR VISIT Annual Exam Medications Medication SIG (Take, Route, Frequency, Duration) Notes Start Date End Date Status Nicotine Step 3 7 MG/24HR 1 patch to ski n Transdermal Once a day 08/25/2022 Active Nicotine Step 2 14 MG/24HR 1 patch to sk in Transdermal Once a day 08/25/2022 Active Nicotine 21 MG/24HR 1 patch to skin Transdermal Once a day 08/01/2022 Active Omeprazole 20 MG 1 capsule Orally Onc e a day Active cloNIDine HCl 0.2 MG TAKE 1 TABLET BY [facility] TWICE A DAY Active Tamsulosin HCl 0.4 MG TAKE 1 [...] Date Provider Diagnosis Gino Sanders III, MD [address] [place] [address] [place] [phone] 10/10/2024 Gino Sanders Benign prostatic hyperplasia, unspecified whether lower urinary tract symptoms present N40.0 Assessments Encounter Date Diagnosis (ICD Code) Assessment Notes Treat ment Notes Treatment Clinical Notes 10/10/2024 Benign prostatic hyperplasia, unspecified whether lower urinary tract symptoms present (ICD-10 - N40.0) Plan Of Treatment Medication Medication Name Sig Start Date Stop Date Notes Nicotine Step 3 7 MG/24HR 1 patch to ski n Transdermal Once a day 08/25/2022 Nicotine Step 2 14 MG/24HR 1 patch to sk in Transdermal Once a day 08/25/2022 Nicotine 21 MG/24HR 1 patch to skin Johnston sdermal Once a day 08/01/2022 Omeprazole 20 MG 1 capsule Orally Once a day cloNIDine HCl 0.2 MG TAKE 1 TABLET BY MO [facility] TWICE A DAY Tamsulosin HCl 0.4 MG TAKE 1 CAPSULE BY MOUTH EVERY DAY FOR 30 DAYS Next Appt Details Provider Name:Gino Yuri Marilyn , 11/14/2024 02:30:00 PM, [address] [place] [address] [address], [place], [phone], Provider Name:Gino Sanders , 02/13/2025 02:45:00 PM, [address] [place] [address] [address], [place], [phone], Progress Notes * EMILIE CLAYDOB: [birth year] (59 yo M)Acc No.[id number]:10/10/2024 Progress Notes Patient: EMILIE COPPOLA Provider: Viviana Sanders MD :1965 A ge:59 Y S ex:Male Date:10/10/2024 Address:[address] [place] [phone] Subjective: * Chief Complaints: * 1 . [...] ggressive non-smoker Alanna rubio was born in [facility]. He is not a [employer]. 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 He is single with 2 children who live in [place]. They are alive and well. * Medications: T aking Tamsulosin HCl 0.4 MG Capsule TAKE 1 CAPSULE BY MOUTH EVERY DAY FOR 30 DAYS , Taking cloNIDine HCl 0.2 MG Tablet TAKE [...] to skin Transdermal Once a day , Medication List reviewed and reconciled with [...] * Provider: Viviana Sanders MD Date: 0 10/10/2024 Generated for Deanna foote/Uyen/Julio Cesaritting on: 0 [...]
--- OUTSIDE RECORDS SUMMARY | 2024-11-04 06:15 | XMS_ITS ---
Author Organization Gino Sanders III, MD Address [address] [place] [address] [place] [address] Care Team Providers Care Finance Advisor Name Role Phone Dr. Gino Sanders III Primary Care Provider [phone] Allergies Allergen (clinical drug ingredient) Drug/Non Drug Allergy documented on EMR Reaction Allergy Type Onset Date Status No Known Drug Allergy Unknown Drug Allergy Active Reason For Referral Reason Consult and Treat Substance Abuse Diagnosis 1 Substance abuse (F19 .10) Referral Organization Gino Sanders III, MD Referring Provider First Name Gino Referring Provider Last Name Marilyn Referring Provider Speciality Internal M edicine Referred Provider Comprehensive Care, Center Referred Provider Specialty Addiction Ri kvng General Notes July Moran 11/04/2024 10:46:42 AM > Center does not need referral only needs patient demographics. Demographics were faxed, appointment was made over the phone and patient was made aware of appointment. Referral Priority Routine Referral Appointment Date 11/05/2024 REASON FOR VISIT Narcotics addiction, Benign prostatic hypertrophy, GERD, Inguinal hernias, Impression, Hyperlipidemia Medications Medication SIG (Take, Route, Frequency, Duration) Notes Start Date End Date Status cloNIDine HCl 0.2 MG TAKE 1 TABLET BY [facility] TWICE A DAY Active Nicotine Step 3 7 MG/24HR 1 patch to ski n Transdermal Once a day 08/25/2022 Active Nicotine Step 2 14 MG/24HR 1 patch to skin Transdermal Once a day 08/25/2022 Active Nicotine 21 MG/24HR 1 patch to skin Transdermal Once a day 08/01/2022 Active Omeprazole 20 MG 1 capsule Orally Onc e a day Active Doxycycline Hyclate 100 MG 1 capsule Orally twice a day for 10 days 11/04/2024 11/14/2024 Active Tamsulosin HCl 0.4 MG TAKE 1 [...] Tobacco Non-User Aggressive non-smoker Vital Signs Temperature 98.2 degrees Fahrenheit 11/05/19 25 Blood pressure systolic 140 mm Hg 11/05/19 25 Blood pressure diastolic 82 mm Hg 025 Heart Rate 63 /min 11/04/2024 Height 71 in 11/04/2024 Weight 166 lbs 11/04/2024 BMI 23.15 kg/m2 11/04/2024 Encounters Encounter Location Date Provider Diagnosis Gino Sanders III, MD [address] [place] [address] [place] [address] 11/04/2024 Gino Sanders Benign prostatic hyperplasia, unspecified whether lower urinary tract symptoms present N40.0 ; Substance abuse F19.10 ; Hyperlipidemia, unspecified hyperlipidemia type E78.5 ; Reactive depression F32.9 and Primary erectile dysfunction N52.9 Assessments Encounter Date Diagnosis (ICD Code) Assessment Notes Treat ment Notes Treatment Clinical Notes 11/04/2024 Benign prostatic hyperplasia, unspecified whether lower urinary tract symptoms present (ICD-10 - N40.0) He has been experiencing nocturia once a night. We discussed lifestyle modifications to reduce this. 11/04/2024 Substance abuse (ICD-10 - F19.10) He has an appointment with [facility] tomorrow morning. 11/04/2024 Hyperlipidemia, unspecified hyperlipidemia type (ICD-10 - E78.5) He is going to have the comprehensive blood work within the next week. 11/04/2024 Reactive depression (ICD-10 - F32.9) He does not wish to take bupropion anymore as he finds it ineffective. I have given him sertraline today. He will return in 21 days for dose adjustment. 11/04/2024 Primary erectile dysfunction (ICD-10 - N52.9) He was given a trial of tadalafil 20 mg, instructions on its use and what side effects to expect. Plan Of Treatment Medication Medication Name Sig Start Date Stop Date Notes cloNIDine HCl 0.2 MG TAKE 1 TABLET BY [facility] TWICE A DAY Nicotine Step 3 7 MG/24HR 1 patch to ski n Transdermal Once a day 08/25/2022 Nicotine Step 2 14 MG/24HR 1 patch to sk in Transdermal Once a day 08/25/2022 Nicotine 21 MG/24HR 1 patch to skin Johnston sdermal Once a day 08/01/2022 Omeprazole 20 MG 1 capsule Orally Once a day Doxycycline Hyclate 100 MG 1 capsule Ora lly twice a day for 10 days 11/04/2024 11/14/2024 Tamsulosin HCl 0.4 MG TAKE 1 CAPSULE BY MOUTH EVERY DAY FOR 30 DAYS Referrals Referral Date Details 11/04/2024 11/04/2024, Consult and Treat Substance Abuse, [facility] Care Next Appt Details Follow Up: 1 Week, Reason: o v no tests Provider Name:Gino Sanders , 11/14/2024 02:30:00 PM, [address] [place] [address] [address], [place], [id number], Provider Name:Gino Sanders , 02/13/2025 02:45:00 PM, [address] [place] [address] [address], [place], [address], Progress Notes * DANNAEMILIEDOB: 6 (59 yo M)Acc No.[id number]:11/04/2024 Progress Notes Patient: EMILIE COPPOLA Provider: Viviana Sanders MD :1965 A ge:59 Y S ex:Male Date:11/04/2024 Address:[address] [place] [id number] Subjective: * Chief Complaints: * N arcotics addictionBenign prostatic hypertrophyGERDInguinal herniasImpressionHyperlipidemia * HPI: C OVID-19 Screening: He returns for regular scheduled visit. He was very depressed today saying that he has relapsed and has been snorting fentanyl. We discussed how dangerous this is. He has no Narcan. He is willing to enter treatment. We arranged an appointment at 9 AM comprehensive care program at [facility] which is an addiction recovery program the remainder of his examination was unremarkable medical status was stable. He says he wants to stop using very badly. He has been purchasing methadone on history try and taper off. Questions H ave you had any new [...] of breath d enies. G astrointestinal: Constipation t hat is moderate. D ecreased appetite?denies. D iarrhea d enies. H eartburn o [...] ggressive non-smoker Alanna rubio was born in [facility]. He is not a Caodaism. 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 He is single with 2 children who live in [place]. They are alive and well. * Medications: T akingTamsulosin HCl 0.4 MG Capsule TAKE 1 CAPSULE BY MOUTH EVERY DAY FOR 30 DAYS cloNIDine HCl 0.2 MG Tablet TAKE 1 [...] patch to skin Transdermal Once a day Medication List reviewed and reconciled with the patientTaking Tamsulosin HCl 0.4 MG Capsule TAKE 1 CAPSULE BY MOUTH EVERY DAY FOR 30 DAYS Taking cloNIDine HCl 0.2 MG Tablet TAKE [...] patch to skin Transdermal Once a day Medication List reviewed and reconciled with the patient * Allergies: N o Known Drug Allergyno[Allergies Verified] Objective: * Vitals: H t: 71, Wt: 166, BMI:23.15, BP: 140/82, HR: 63, Temp: 98.2, Ht-cm: 180.34, Wt-k.3. * Examination: G eneral Examination: GENERAL APPEARANCE: C lean and well groomed very depressed? gentleman. HEAD: a traumatic, normocephalic. EYES: e natalie, perrla, anicteric, conjugate. EARS: n ormal. NOSE: s eptum intact. ORAL CAVITY: n ormal, unremarkable, Breath normal. NECK/THYROID: n o jugular venous distention, no carotid bruit, thyroid normal. LYMPH NODES: n o enlarged lymph nodes,spleen normal. SKIN: n o suspicious lesions, anicteric, No puncture saini.? HEART: n o clicks, gallops, murmurs, or [...] extremities, sensory exam intact. PSYCH: a lert, oriented: mood depressed: speech diminished output, volume. Assessment: * Assessment: 1. S ubstance abuse - F19.10 (Primary) N otes :He has an appointment with [facility] tomorrow morning. 2 . B enign prostatic hyperplasia, unspecified whether lower urinary tract symptoms present - N40.0 N otes :He has been experiencing nocturia once a night. We discussed lifestyle modifications to reduce this. 3 . H yperlipidemia, unspecified hyperlipidemia type - E78.5 N otes :He is going to have the comprehensive blood work within the next week. 4 . R eactive depression - F32.9 N otes :He does not wish to take bupropion anymore as he finds it ineffective. I have given him sertraline today. He will return in 21 days for dose adjustment. 5 . P rimary erectile dysfunction - N52.9 N otes :He was given a trial of tadalafil 20 mg, instructions on its use and what side effects to expect. Plan: * Treatment: 2. B enign prostatic hyperplasia, unspecified whether lower urinary tract symptoms present Continue Tamsulosin HCl Capsule, 0.4 MG, TAKE 1 CAPSULE BY MOUTH EVERY DAY FOR 30 DAYS; S tart Doxycycline Hyclate Capsule, 100 MG, 1 capsule, Orally, twice a day, 10 days, 20 Capsule, Refills 0.? 3. O thers Continue cloNIDine HCl Tablet, 0.2 [...] Once a day. * Procedure Codes: * Follow Up: 1 Week (Reason: ov no tests) * Images: * Sign off status: Completed true * Provider: Viviana Sanders MD Date: 11/04/2024 Generated for Bakarii dary/Uyen/Jesussmitting on: 11/05/2024 12:13 PM EDT History and Physical Notes * HPI (History of Present Illness) Category Sub-Category Detail Notes COVID-19 Screening Questions Have you had any new onset fever, chills, cough, congestion, sore throat, shortness of breath, muscle aches?: No Examination Category Sub-Category Detail Notes General Examination GENERAL APPEARANCE: Clean an d well groomed very depressed gentleman HEAD: atraumatic, normocep halic EYES: eomi, perrla, [...] intact SKIN: no suspicious lesion s, anicteric, No puncture saini PERIPHERAL PULSES: normal BREASTS: no masses palpable b ilaterally MUSCULOSKELETAL: extremities unremark able, no clubbing, cyanosis or edema LYMPH NODES: no enlarged lymph no toni,spleen normal RECTAL EXAM: not examined PSYCH: alert, oriented: moo d depressed: speech diminished output, volume ORAL CAVITY: normal, unremarkable , Breath normal Consultation Request Notes Referral Date Referring Provider Referred Provider Not lacy 11/04/2024 Gino Sanders [facility] Consult and Treat Substance Abuse
[2024-11-05 10:06] VITALS: BP 142/90; PULSE 64; O2SAT 99; BMI 22.9
--- NOTE | 2024-11-05 10:06 | MHC.OFFVIS ---
Vital Signs 11/05/24 10:06 Height 6 ft Weight 169 lb BMI 22.9 BP 142/90 H Blood Pressure Location Rt brachial Position Sitting Pulse 64 Pulse Source Pulse Oximeter Pulse Oximetry (%) 99 Oxygen Delivery Method Room Air Intake Visit Reasons: Mat Intake Allergies No Known Allergies Allergy (Verified 11/05/24 10:07) HPI Comments Details: A 59 year old male presents for a MAT intake r/t LUIS during the visit states I'm not interested in taking buprenorphine-naloxone or medications. Reports interest in a inpatient detox program. [facility] Medical History Bilateral inguinal hernia Fracture of left ulna History of diverticulitis Surgical History H/O wrist surgery History of surgery on arm H/O bilateral inguinal hernia repair Social History Alcohol intake: never Patient Tobacco Use Status: Current everyday Tobacco user Tobacco use type: Smokeless Tobacco Current occupational status: unemployed Physical Exam Vital Signs: Last Vital Signs Pulse 64 11/05/24 10:06 BP 142/90 H 11/05/24 10:06 Pulse Ox 99 11/05/24 10:06 Oxygen Delivery Method Room Air 11/05/24 10:06 BMI result Body Mass Index 22.9 Results AMB 14 Panel Urine Drug Screen Urine Marijuana (THC) Positive Last Edit by Yasmany Huddleston CMA on 11/05/24 10:12 Urine Cocaine Positive Last Edit by Yasmany Huddleston CMA on 11/05/24 10:12 Urine Morphine Positive Last Edit by Yasmany Huddleston CMA on 11/05/24 10:12 Urine Methamphetamine Negative Last Edit by Yasmany Huddleston CMA on 11/05/24 10:12 Urine Amphetamine Negative Last Edit by Yasmany Huddleston CMA on 11/05/24 10:12 Urine Benzodiazepine Negative Last Edit by Yasmany Huddleston CMA on 11/05/24 10:12 Urine Barbiturates Negative Last Edit by Yasamny Huddleston CMA on 11/05/24 10:12 Urine Methadone Positive Last Edit by Yasmany Huddleston CMA on 11/05/24 10:12 Urine Buprenorphine Negative Last Edit by Yasmany Huddleston CMA on 11/05/24 10:12 Urine Tricyclic Antidepressant Negative Last Edit by Yasmany Huddleston CMA on 11/05/24 10:12 Urine MDMA Negative Last Edit by Yasmany Huddleston CMA on 11/05/24 10:12 Urine Oxycodone Negative Last Edit by Yasmany Huddleston CMA on 11/05/24 10:12 Urine Phencyclidine Negative Last Edit by Yasmany Huddleston CMA on 11/05/24 10:12 Urine Propoxyphene Negative Last Edit by Yasmany Huddleston CMA on 11/05/24 10:12 Results Reviewed Results Reviewed: Laboratory Last Values POC Urine Buprenorphine Negative 11/05/24 10:11 POC Urine Morphine Positive 11/05/24 10:11 POC Urine Oxycodone Negative 11/05/24 10:11 POC Urine Methadone Positive 11/05/24 10:11 POC Urine Propoxyphene Negative 11/05/24 10:11 POC Urine Barbiturates Negative 11/05/24 10:11 POC U Tricyclic Antidpr Negative 11/05/24 10:11 POC Urine PCP Negative 11/05/24 10:11 POC Ur Amphetamines Negative 11/05/24 10:11 POC Ur Methamphetamine Negative 11/05/24 10:11 POC Urine MDMA Negative 11/05/24 10:11 POC Ur Benzodiazepine Negative 11/05/24 10:11 POC Urine Cocaine Positive 11/05/24 10:11 POC Ur Marijuana (THC) Positive 11/05/24 10:11 Assessment & Plan Assessment & Plan (1) Substance use disorder: Code(s): F19.90 - Other psychoactive substance use, unspecified, uncomplicated Category: Medical Plan Per patient not interested in buprenorphine-naloxone or other medications to reduce cravings for LUIS. Education and written information given on area detox programs and encouraged to decrease quantity and frequency of opiates and other substances. Orders: Orders AMB 14 Panel Urine Drug Screen Today Z51.81 - Encounter for therapeutic drug level monitoring Patient Instructions: - Information on area detox programs provided. - Encouraged to decrease quantity and frequency of opiates and other substances. - Call with questions or concerns to [facility]. - The patient verbalized understanding and agreed with plan of care. Coding Level of Care Code New Pt Level 3 (21511) Diagnoses Substance use disorder F19.90 MAT Intake Nursing Intake Reason for visit: MAT intake- looking for more information on [facility] services Are you currently using?: Yes What are you taking?: heroin + When was your last use?: today How much?: 1 bundle What is your source of income?: unknown- currently not working What is your current relationship status?: significant other Current PCP: Dr Busch Referral Source: PCP office Substance Abuse History Substance Abuse History (includes route, frequency and quantity): Heroin (1 bundle today), Fentanyl, Buprenorphine/naloxone, Methadone, Oxycodone product, Cocaine, Alcohol, Marijuana and Tobacco Social History Domestic Violence concerns: none Children: grown Do you have a support system?: some Current mode of transportation?: self Where are you currently residing?: [facility]: N/A IV Drug Use Have you ever shared needles?: No Have you ever belonged to a needle exchange program?: No Do you buy needles at a pharmacy?: No Have you ever overdosed?: Yes Number of lifetime overdoses: 2 Have you ever been hospitalized for an overdose?: Yes Was Naloxone administered?: Yes Recovery History Have you had any periods of recovery?: Yes What is your longest time in recovery?: 5 years When was the last time you were in recovery?: 10 years ago Have you ever had inpatient treatment for your substance abuse disorder?: No Have you been in an inpatient detoxification program?: Yes Have you been in an inpatient Rehab/[place] house?: Yes Have you been in an outpatient Methadone Maintenance program?: No Have you been in an outpatient Suboxone Maintenance program?: No Have you been in an AA/NA support program?: Yes Have you had a Recovery Support Printing Shop Supervisor?: No Have you had Peer Support?: No Behavioral Health History Do you have a current provider? If so, who?: no diagnosis: self diagnosis of anxiety and depression History of other addictive behavior: gambling, sex, shopping, scratch tickets History of inpatient psychiatric hospitalization? If so, how many? Most Recent? Where?: no History of self harming thoughts?: No History of homicidal or suicidal intentions?: No Medical Conditions Endocarditis?: No Skin Infection: No Seizure related to withdrawal or overdose: No Head or brain injury: No Hepatitis A (if yes, have you been treated?): No Hepatitis B (if yes, have you been treated?): No Hepatitis C (if yes, have you been treated?): No HIV (if yes, have you been treated?): No TB (if yes, have you been treated?): No Other: No Do you have any chronic pain conditions?: no Legal History History of incarceration: Yes Currently on parole or probation: No Court mandated programs: No Pending court cases: No DCF involvement: No
--- OUTSIDE RECORDS SUMMARY | 2024-11-05 12:14 | XMS_ITS | Encounter Summary ---
Author Organization [facility] Address [address] [place] [address] Phone Care Team Providers Care Bullet Lubricant Mixer Name Role Phone Pcp, Unknown Primary Care Provider Gino Schwartz MD Primary Care Provider [phone] Encounter Details Date Type Department Care Team (Late st Contact Info) Description 04/07/2020 Procedure [facility], Ct Scan - [address] [address] Social History Tobacco Use Types Packs/Day Years Used Date Smoking Tobacco: Never Smokeless Tobacco: Current Chew Alcohol Use Standard Drinks/Week Comments Yes 0 (1 standard drink = 0.6 oz pur e alcohol) Sex and Gender Information Value Date Recorded Sex Assigned at Male 03/02/2020 7:36 AM EST Legal Sex Male 7:01 AM EST Gender Identity Male 03/02/2020 7:36 AM EST Sexual Orientation Straight 04/15/2020 4: 03 PM EST documented as of this encounter Plan of Treatment Not on file documented as of this encounter Visit Diagnoses Not on filedocumented in this encounter Care Teams Bullet Lubricant Mixer Relationship Specialty Start Date End Date Pcp, Unknown PCP - General 03/02/20 04/20/20 Gino Sanders MD PCP - General Medical Oncology 04/21/20 documented as of this encounter Additional Source Comments The information contained in this document represents components of the legal health record. It is not the complete legal health record.[facility]
--- OUTSIDE RECORDS SUMMARY | 2024-11-05 12:14 | XMS_ITS | Clinical Summary ---
Author Organization [facility] Address [address] [place] [address] Care Team Providers Care Installation Superintendent Name Role Phone Unavailable Primary Care Provider Unavailabl e Social History Tobacco Use Types Packs/Day Years Used Date Smoking Tobacco: Never Assessed Sex and Gender Information Value Date Recorded Sex Assigned at Not on file Legal Sex Male 3:12 AM EST Gender Identity Not on file Sexual Orientation Not on file Plan of Treatment Health Maintenance Due Date Last Done Comments DTaP,Tdap,and Td Vaccines (1 - Tdap) 1984 Hepatitis B Vaccines (1 of 3 - 19+ 3-dose series) 1984 Pneumococcal Vaccine: 50+ Ye ars (1 of 1 - PCV) 06/09/2015 Zoster Vaccines (1 of 2) 06/09/2015 Depression Screening 02/13/2024 COVID-19 Vaccine (1 - 2023-2 5 season) 2024 Influenza Vaccine (#1) 2024 RSV Immunization Adult Patie nts (1 - 1-dose 75+ series) 2040 HIB Vaccines Aged Out No longer eligi ble based on patient's age to complete this topic HPV Vaccines Aged Out No longer eligi ble based on patient's age to complete this topic Hepatitis A Vaccines Aged Out No long er eligible based on patient's age to complete this topic IPV Vaccines Aged Out No longer eligi ble based on patient's age to complete this topic MMR Vaccines Aged Out No longer eligi ble based on patient's age to complete this topic Meningococcal ACWY Vaccine Aged Out N o longer eligible based on patient's age to complete this topic Meningococcal B Vaccine Aged Out No l onger eligible based on patient's age to complete this topic RSV Immunization Patients Un eliceo 20 months Aged Out No longer eligible b ased on patient's age to complete this topic Varicella Vaccines Aged Out No longer eligible based on patient's age to complete this topic
--- OUTSIDE RECORDS SUMMARY | 2024-11-05 12:14 | XMS_ITS | Clinical Summary ---
Author Organization [facility] Address [address] [facility] [address] [place] [address] Phone Care Team Providers Care Inventory Checker Name Role Phone Gino Sanders MD Primary Care Provider [phone]- [phone] Allergies No known active allergies Medications oxyCODONE 5 MG immediate release tablet Take 1-2 tablets by mouth every 4-6 hours as needed for pain. Patient may request partial fill. 40 tablet 1 Active Additional Information Patient not taking.Reported on 06/09/2020 traMADoL (ULTRAM) 50 mg tablet Take 1 tablet nightly before bed. Patient may request partial fill. 7 tablet 1 Active naproxen sodium (ALEVE) 220 MG tablet Take 220 mg by mouth 2 (two) times a day with meals. 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 Not on kb e 06/09/2022 Are you concerned about learning? Not on file 06/09/2022 No 06/09/2022 No 06/09/2022 Digital Access Answer Date Recorded No 07/11/2022 No 07/11/2022 Reliable internet access at home? Not on file 07/11/2022 Device with a working camera? Not on file Sex and Gender Information Value Date Recorded Sex Assigned at Male 03/02/2020 7:36 AM EST Legal Sex Male 7:01 AM EST Gender Identity Male 03/02/2020 7:36 AM EST Sexual Orientation Straight 04/15/2020 4: 03 PM EST Last Filed Vital Signs Vital Sign Reading Time Taken Comments Blood Pressure 119/84 05/25/2020 3:15 PM EDT Pulse 61 05/25/2020 3:15 PM EDT Temperature 36.5 C (97.7 F) 05/25/2020 2:45 PM EDT Respiratory Rate 16 05/25/2020 3:15 PM EDT Oxygen Saturation 98% 05/25/2020 3:15 PM EDT Inhaled Oxygen Concentration - - Weight 93 kg (205 lb) 08/18/2020 3:39 PM EDT Height 185.4 cm (6' 1 ) 08/18/2020 3:39 PM EDT Body Mass Index 27.05 08/18/2020 3:39 PM EDT Plan of Treatment Health Maintenance Due Date Last Done Comments Adult Td,Tdap Booster 1965 LIPID PANEL 1965 DEPRESSION SCREENING 1977 HEPATITIS C SCREENING 06/09/1983 HIV ONE-TIME SCREENING (18-6 5 YEARS) 06/09/1983 COLOGUARD 2010 COLONOSCOPY 2010 COLORECTAL CANCER SCREENING 2010 FIT TEST 2010 FOBT 2010 SIGMOIDOSCOPY 2010 VIRTUAL COLONOSCOPY 2010 PNEUMOCOCCAL VACCINES (50+ years) (1 of 1 - PCV) 06/09/2015 ZOSTER VACCINES (1 of 2) 06/09/2015 INFLUENZA VACCINE (#1) 2024 , 11/25/2019, 04/07/2014 COVID-19 VACCINE (3 - 2024-2 6 season) 2024 07/05/2020, 06/14/2020 SMOKING STATUS SCREENING (On ce After 26 Yrs) Completed 09/29/2020 HEPATITIS A VACCINES Aged Out No long er eligible based on patient's age to complete this topic HIB VACCINES Aged Out No longer eligi ble based on patient's age to complete this topic MENINGOCOCCAL VACCINES (ACWY) Aged Out No longer eligible based on patient's age to complete this topic MENINGOCOCCAL VACCINES (B) Aged Out N o longer eligible based on patient's age to complete this topic Medical Devices Implanted Type Area Petal Shaper Hand Device Identifier Shelf Expiration Date Model / Serial / Lot Bone Plate 3.5mm Small 7 Hole Compression Lc Dcp Ss Bx/2ea - [id number] Implanted:Qty: 1 on 05/25/2020 by Colin Crowe MD at [facility] Left: Ulna SYNTHES 223.57 / / Screw Bone 3.5x20mm Cortex Self Tapping Fully Threaded Hex Head Ss - [id number] Implanted:Qty: 4 on 05/25/2020 by Colin Crowe MD at [facility] Left: Ulna SYNTHES 204.820 / / Screw Bone 3.5x18mm Cortex Self Tapping Fully Threaded Hex Head Ss - [id number] Implanted:Qty: 2 on 05/25/2020 by Colin Crowe MD at [facility] Left: Ulna SYNTHES 204.818 / / Graft Bone Sm On Orthoblend Demineralized Matrix Defect Jar - [id number] Implanted:Qty: 1 on 05/25/2020 by Colin Crowe MD at [facility] STANDARD Left: Ulna [employer] 04/25/2020 [id number] / / [id number] [place], [place] [id number] [employer] [place] [employer] [place] [employer] [place] [employer] [place] [facility] [place] [id number] Care Teams Inventory Checker Relationship Specialty Start Date End Date Gino Sanders MD PCP - General Medical Oncology 04/21/20 Additional Source Comments The information contained in this document represents components of the legal health record. It is not the complete legal health record.[facility]
--- OUTSIDE RECORDS SUMMARY | 2024-11-05 12:14 | XMS_ITS | Encounter Summary ---
Author Organization [facility] Address [address] [facility] [address] [place] [address] Phone Care Team Providers Care Senior Mortgage Underwriter Name Role Phone Gino Sanders MD Primary Care Provider +1- [phone] Encounter Details Date Type Department Care Team (Late st Contact Info) Description 05/25/2020 Procedure Pass OR Admitting Dept - Virtual Department [address] [place] [id number] Social History Tobacco Use Types Packs/Day Years [...] on filedocumented in this encounter Care Teams Senior Mortgage Underwriter Relationship Specialty Start Date End Date Gino Sanders MD PCP - General Medical Oncology 04/21/20 documented as of this encounter Additional Source Comments The information contained in this document represents components of the legal health record. It is not the complete legal health record.[facility]
--- OUTSIDE RECORDS SUMMARY | 2024-11-05 12:14 | XMS_ITS | Patient Health Record ---
Author Organization Gino Sanders III, MD Address [address] [place] [address] [address] [place] [address] Care Team Providers Care Diamond Sizer Name Role Phone Dr. Gino Sanders III Primary Care Provider Allergies Allergen (clinical drug ingredient) Drug/Non Drug Allergy documented on EMR Reaction Allergy Type Onset Date Status No Known Drug Allergy Unknown Drug Allergy Active Results Component Value Reference Range Notes Pathology Reviewed date:01/21/2024 05:36:52 AM Interpretation: Performing Lab:[facility], [address] [place] [id number] Notes/Report: Name: Emilie Clay Age/Sex: 58/M : 1965 Unit#: [id number] Attend Dr: Eduarda Phelps MD Re01/04/24 Status : [facility] Location: [place] Disch: SPEC : [id number] RECD : 01/04/24 STATUS: [place] NUM: [id number] ARYA: 01/04/24-[address] [facility] [address]: Eduarda Phelps MD ENTERED: 01/04/24- SP TYPE: Surgical OTHR DR: Gino Sanders MD ORDERED: HE Stain/6, Gross Micro L4/2 Diagnosis A. Colon, transverse , polyp: Colonic mucosa with no specific change; no adenomatous dysplasia seen. B. Colon, rectal emeli yps: Hyperplastic polyps, three. Clinical History Pre-Op Dx: Screening colonoscopy Post-Op Dx: Colon po lyps, diverticulosis, hemorrhoids Microscopic Description Multiple microscopic sections reviewed. Material Received A. Transverse colon polyp B. Rectal polyps Gross Description Received in two parts. Part A: Received in formalin labeled ?transverse colon polyp? are 2 salas and salas-pink irregular tissue fra gments measuring 0.2 and 0.3 cm, submitted in toto in a cassette labeled A. Part B: Received in formalin labeled ?rectal polyps? are 3 salas-pink irregular tissue fragments ranging fr om 0.2-0.25 cm, submitted in toto in a cassette labeled B. CEDS Copies To: Gino Sanders MD [address] [place] [address], [address] [place] [address] Eduarda Phelps MD [facility] [address] [place] [address] CONTINUED ON NEXT PAGE Name: Emilie Clay Age/Sex: 58/M : 1965 Unit#: [id number] Attend Dr: Eduarda Phelps MD Re01/04/24 Status : [facility] Location: JUDY Disch: SPEC : [id number] RECD : 01/04/24 STATUS: [place] NUM: [id number] ARYA: 01/04/[address] [facility] [address]: Eduarda Phelps MD ENTERED: 01/04/24 SP TYPE: Surgical OTHR DR: Gino Sanders MD ORDERED: SUNITHA Stain/6, Hieu Davis L4/2 Copies To: (Continued) [phone] Signed (si gnature on file) Gretchen Mckenna 01/08/24 1002 END OF REPORT Reason For Referral Reason Consult and Treat Substance Abuse Diagnosis 1 Substance abuse (F19 .10) Referral Organization Gino Sanders III, MD Referring Provider First Name Gino Referring Provider Last Name Marilyn Referring Provider Speciality Internal M edicine Referred Provider Comprehensive Care, Center Referred Provider Specialty Addiction Me calderon General Notes July Moran 11/04/2024 10:46:42 AM > Center does not need referral only needs patient demographics. Demographics were faxed, appointment was made over the phone and patient was made aware of appointment. Referral Priority Routine Referral Appointment Date 11/05/2024 Medications Medication SIG (Take, Route, Frequency, Duration) Notes Start Date End Date Status Doxycycline Hyclate 100 MG 1 capsule Orally twice a day for 10 days 11/04/2024 11/14/2024 Active cloNIDine HCl 0.2 MG TAKE 1 TABLET BY MO [facility] TWICE A DAY Active Tamsulosin HCl 0.4 MG TAKE 1 CAPSULE BY MOUTH EVERY DAY FOR 30 DAYS Active Nicotine Step 3 7 MG/24HR 1 patch to ski n Transdermal Once a day 08/25/2022 Active Nicotine Step 2 14 MG/24HR 1 patch to skin Transdermal Once a day 08/25/2022 Active Nicotine 21 MG/24HR 1 patch to skin Transdermal Once a day 08/01/2022 Active Omeprazole 20 MG 1 capsule Orally Onc e a day Active Immunizations Vaccine Route Administration Date Status [...] Problem Status W/U Status Risk Notes Problem 529326800 Overweight (E66.3) Active confirmed He has lost 9 pounds. His body mass index is 27. He declined my offer of an antidepressant. I have referred back to health evaluation. They have been prescribing his medications. Problem 84972910 Substance abuse (F19.10) Active confirmed He has an appointment with [facility] tomorrow morning. Problem 551656103 Gastroesophageal reflux disease without esophagitis (K21.9) Active confirmed He does not wak e up at night with reflux. His GERD is well controlled with medication. Problem 91880205 Bilateral inguinal hernia without obstruction or gangrene, recurrence not specified (K40.20) Active confirmed Bilateral herniorrhaphies were done in the past and then revised later on. There is no sign of recurrent hernias today. The scars are old and healed. Problem Hyperlipidaemia (59911132) Hyperlipidemia, unspecified hyperlipidemia type (E78.5) Active confirmed He is going to have the comprehensive blood work within the next week. Problem 546048532 Diverticulitis (K57.92) Active confirmed Clinically he has early diverticulitis and was given a prescription for levofloxacin. Problem 06332150 Reactive depression (F32.9) Active confirmed He does not wis h to take bupropion anymore as he finds it ineffective. I have given him sertraline today. He will return in 21 days for dose adjustment. Problem Benign prostatic hypertrophy without outflow obstruction (496467673) Benign prostatic hyperplasia, unspecified whether lower urinary tract symptoms present (N40.0) Active confirmed He has been experiencing nocturia once a night. We discussed lifestyle modifications to reduce this. Problem 77862497 Other closed fracture of distal end of left ulna, sequela (S52.882S) Active confirmed The arm is functional today. He has recovered from the surgery and will not require additional orthopedic care. Problem 577878732 Primary erectile dysfunction (N52.9) Active confirmed He was given a trial of tadalafil 20 mg, instructions on its use and what side effects to expect. Vital Signs Heart Rate 63 /min 11/04/2024 Temperature 98.2 degrees Fahrenheit 11/04/2024 Blood pressure diastolic 82 mm Hg 11/04/2024 Height 71 in 11/04/2024 Blood pressure systolic 140 mm Hg 11/04/2024 Weight 166 lbs 11/04/2024 BMI 23.15 kg/m2 11/04/2024 Encounters Encounter Location Date Provider Diagnosis Gino Sanders III, MD [address] [place] [address] [place] [address] 11/08/2023 Gino Sanders Benign prostatic hyperplasia, unspecified whether lower urinary tract symptoms present N40.0 ; Hyperlipidemia, unspecified hyperlipidemia type E78.5 ; Overweight E66.3 ; Other closed fracture of distal end of left ulna, sequela S52.692S ; Bilateral inguinal hernia without obstruction or gangrene, recurrence not specified K40.20 ; Reactive depression F32.9 and Substance abuse F19.10 Gino Sanders III, MD [address] [place] [address] [place] [address] 03/14/2024 Gino Sanders Benign prostatic hyperplasia, unspecified whether lower urinary tract symptoms present N40.0 ; Primary erectile dysfunction N52.9 ; Gastroesophageal reflux disease without esophagitis K21.9 ; Overweight E66.3 ; Bilateral inguinal hernia without obstruction or gangrene, recurrence not specified K40.20 and Substance abuse F19.10 Gino Sanders III, MD [address] [place] [address] [place] [address] 06/11/2024 Gino Sanders Benign prostatic hyperplasia, unspecified whether lower urinary tract symptoms present N40.0 ; Reactive depression F32.9 ; Overweight E66.3 ; Hyperlipidemia, unspecified hyperlipidemia type E78.5 ; Gastroesophageal reflux disease without esophagitis K21.9 ; Other closed fracture of distal end of left ulna, sequela S52.692S and Bilateral inguinal hernia without obstruction or gangrene, recurrence not specified K40.20 Gino Sanders III, MD [address] [place] [address] [place] [address] 11/04/2024 Gino Sanders Benign prostatic hyperplasia, unspecified whether lower urinary tract symptoms present N40.0 ; Substance abuse F19.10 ; Hyperlipidemia, unspecified hyperlipidemia type E78.5 ; Reactive depression F32.9 and Primary erectile dysfunction N52.9 Gino Sanders III, MD [address] [place] [address] [place] [address] 12/14/2023 Gino Sanders Assessments Encounter Date Diagnosis (ICD Code) Assessment Notes T reatment Notes Treatment Clinical Notes 11/08/2023 Hyperlipidemia, unspecified hyperlipidemia type (ICD-10 - [...] is unsuccessful medication will be considered. 03/14/2024 Benign prostatic hyperplasia, unspecified whether lower [...] use and what side effects to expect. 06/11/2024 Reactive depression (ICD-10 - F32.9) He does not wish to take bupropion anymore as he finds it ineffective. I have given him sertraline today. He will return in 21 days for dose adjustment. 06/11/2024 Benign prostatic hyperplasia, unspecified whether lower urinary tract symptoms present (ICD-10 - N40.0) He rises from sleep between once and 3 times a night to urinate depending upon fluid ingestion. We discussed lifestyle modification as a means of controlling nocturia. If this is unsuccessful medication will be considered. 11/04/2024 Substance abuse (ICD-10 - F19.10) He has an appointment with [facility] tomorrow morning. 11/04/2024 Benign prostatic hyperplasia, unspecified whether lower urinary tract symptoms present (ICD-10 - N40.0) He has been experiencing nocturia once a night. We discussed lifestyle modifications to reduce this. 11/08/2023 Overweight (ICD-10 - E66.3) He has gained 6 pounds. His body mass index is 29. He is overweight and we have reviewed his diet and nutrition. He believes the weight gain is muscle mass hated by his consuming red meat and taking androgens. 03/14/2024 Gastroesophageal reflux disease without esophagitis (ICD-10 - K21.9) He does not wake up at night with reflux. His GERD is well controlled with medication. 06/11/2024 Overweight (ICD-10 - E66.3) He has lost 9 pounds. His body mass index is 27. He declined my offer of an antidepressant. I have referred back to health evaluation. They have been prescribing his medications. 11/04/2024 Hyperlipidemia, unspecified hyperlipidemia type (ICD-10 - E78.5) He is going to have the comprehensive blood work within the next week. 11/08/2023 Other closed fractur e of distal end of left ulna, sequela (ICD-10 - S52.692S) The arm is functional today. He has recovered from the surgery and will not require additional orthopedic care. 03/14/2024 Overweight (ICD-10 - E66.3) He has lost 6 pounds. His body mass index is 28. He is overweight and we have reviewed his diet and nutrition. He believes the weight gain is muscle mass hated by his consuming red meat and taking androgens. 06/11/2024 Hyperlipidemia, unspecified hyperlipidemia type (ICD-10 - [...] The scars are old and healed. 03/14/2024 Bilateral inguinal hernia without obstruction or gangrene, recurrence not specified (ICD-10 - K40.20) Bilateral herniorrhaphies were done in the past and then revised later on. There is no sign of recurrent hernias today. The scars are old and healed. 06/11/2024 Gastroesophageal reflux disease without esophagitis (ICD-10 - K21.9) He does not wake up at night with reflux. His GERD is well controlled with medication. 11/04/2024 Primary erectile dysfunction (ICD-10 - N52.9) He was given a trial of tadalafil 20 mg, instructions on its use and what side effects to expect. 11/08/2023 Reactive depression (ICD-10 - F32.9) He does not wish to take bupropion anymore as he finds it ineffective. I have given him sertraline today. He will return in 21 days for dose adjustment. 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 He is attending meetings regularly. I encouraged him to continue these meetings and to have a sponsor. He declined an offer of naltrexone. 06/11/2024 Other closed fractur e of distal end of left ulna, sequela (ICD-10 - S52.692S) The arm is functional today. He has recovered from the surgery and will not require additional orthopedic care. 11/08/2023 Substance abuse (ICD-10 - F19.10) He has been clean and sober since July 20, 2022. He is attending meetings regularly. I encouraged him to continue these meetings and to have a sponsor. He declined an offer of naltrexone. 06/11/2024 Bilateral inguinal hernia without obstruction or gangrene, recurrence not specified (ICD-10 - K40.20) Bilateral herniorrhaphies were done in the past and then revised later on. There is no sign of recurrent hernias today. The scars are old and healed. Plan Of Treatment Pending Test Test Name Order Date PROFILE, FASTING (COMPREHENSIVE METABOLI C) 05/11/2020 PROFILE, FASTING (COMPREHENSIVE METABOLI C) 06/11/2024 PROFILE, FASTING (COMPREHENSIVE METABOLI C) 11/08/2023 PROFILE, FASTING (COMPREHENSIVE METABOLI C) 09/13/2023 PROFILE, RANDOM (COMPREHENSIVE METABOLIC ) 03/07/2022 LIPID PANEL 03/07/2022 LIPID PANEL 05/11/2020 LIPID PANEL 09/13/2023 PSA, TOTAL 09/13/2023 PSA, TOTAL 03/07/2022 PSA, TOTAL 05/11/2020 PSA, TOTAL 11/08/2023 CBC w DIFF 09/13/2023 CBC w DIFF 03/07/2022 CBC w DIFF 05/11/2020 CBC w DIFF 06/11/2024 CBC WITH AUTO DIFF 11/08/2023 Lipid Panel 06/11/2024 Lipid Panel 11/08/2023 Testosterone, Free/Total 09/13/2023 Testosterone, Total 11/08/2023 Next Appt Details Provider Name:iGno Sanders , 11/14/2024 02:30:00 PM, [address] [place] [address] [address], [place], [phone], Provider Name:Gino Sanders , 02/13/2025 02:45:00 PM, [address] [place] [address] [address], [place], [phone], Insurance Providers Payer Name Payer Address Payer Phone Subscriber Number Group Number Insured Name Patient Relationship to Insured Coverage Start Date Coverage End Date [place] [address] [place] [id number] EMILIE CLAY Self - patient is the insured Medical (General) History Medical History History ICD Code GERD fracture left ulna, nonunion with bone g raft May 2012 diverticulitis age 40 benign prostatic hypertrophy bilateral inguinal hernias, repaired overweight Substance abuse Surgical History Surgery Date(Month/Year) No history left ulna repair 2020 colonoscopy with upper endoscopy surgery left hand 2000 repair nonunion fractured ulna with bone graft 04/2019 Bilateral Inguinal Herniorraphies revise d 15 years ago Bilateral Inguinal Herniorraphy 6 years ago Hospitalization History Reason Date(Month/Year) No history
--- OUTSIDE RECORDS SUMMARY | 2024-11-05 12:14 | XMS_ITS | Clinical Summary ---
Author Organization [employer] Address [address] [facility] [address] [place] [address] Care Team Providers Care Mold Chipper Name Role Phone Unavailable Primary Care Provider Unavailabl e Social History Tobacco Use Types Packs/Day Years Used Date Smoking Tobacco: Never Assessed Sex and Gender Information Value Date Recorded Sex Assigned at Male 12/12/2021 10:25 AM EDT Legal Sex Male 10:25 AM EDT Gender Identity Not on file Sexual Orientation Not on file Plan of Treatment Health Maintenance Due Date Last Done Comments CT Colonography 1965 Colonoscopy 1965 Colorectal Cancer Screening 1965 Depression Screening 1965 FIT DNA/Cologuard 1965 FIT 1965 FOBT 1965 Lipid Panel 1965 Sigmoidoscopy 1965 Disability Screening 1965 Alcohol/Substance Use Screening 1977 Tobacco Screening 1977 DTaP/Tdap/Td Vaccines (1 - Tdap) 1984 Hepatitis B Vaccines (1 of 3 - 19+ 3-dose series) 1984 Pneumococcal Vaccine: 50+ Ye ars (1 of 1 - PCV) 06/09/2015 Zoster Vaccines (1 of 2) 06/09/2015 COVID-19 Vaccine ( - 2023-2 5 season) 2024 Influenza Vaccine (#1) 2024 RSV Patients and Pa tients Aged 60 years or older (1 - 1-dose 75+ series) 2040 HIB [...] patient's age to complete this topic Meningococcal Vaccine Aged Out No liss jamal eligible based on patient's age to complete this topic RSV under 20 months Aged Out No longe r eligible based on patient's age to complete this topic Rotavirus Vaccines Aged Out No longer eligible based on patient's age to complete this topic
== END 2024-11-05 10:52 | disposition home or self-care (01) ==
PROVIDERS: PCP Internal Medicine Medical Oncology; Visit Provider Clinical Nurse Specialist Psychiatric/Mental Health
DX: Z51.81 Encounter for therapeutic drug level monitoring (principal); F19.90 Other psychoactive substance use, unspecified, uncomplicated
CPT/HCPCS: 99203

== ENCOUNTER → 2024-11-05 10:01 | Outpatient (BNVA) | payer MEDICAID, SELFPAY | PROVIDERS: PCP Internal Medicine Medical Oncology; Visit Provider Clinical Nurse Specialist Psychiatric/Mental Health | DX: F19.20 Other psychoactive substance dependence, uncomplicated (principal); Z51.81 Encounter for therapeutic drug level monitoring; Z79.899 Other long term (current) drug therapy | CPT/HCPCS: 80307; 99212 ==